=== PATIENT | male | born 1945 | race Caucasian/White ===

== ENCOUNTER 2016-10-08 13:32 | Emergency (ER) | payer MEDICARE ==
[~2016-10-08] VITALS: Ht 170.2 cm; Wt 74.0 kg
[2016-10-08 13:41] VITALS: BP 139/65; PULSE 76; RESP 18; O2SAT 97
--- NOTE | 2016-10-08 13:47 | PD ---
Physical Exam Time Seen by Provider: 13:45 Narrative 71yo M sent by [facility] for "severe blood loss." +blood in stool x 2 weeks and resolved today. Patient seen in triage. VS reviewed. Awaiting bed placement. Data Data Last Documented VS Vital Signs Date Time Temp Pulse Resp B/P Pulse Ox O2 Delivery O2 Flow Rate FiO2 10/08/16 13:41 76 18 139/65 97 MDM Supervised Visit with BRISA: Jyoti Collins Oct 08, 2016 13:47
--- NOTE | 2016-10-08 15:05 | PD ---
HPI Chief Complaint: Abnormal Results Time Seen by Provider: 17:56 Travel History International Travel<30 days: No Contact w/Intl Traveler<30days: No Traveled to known affect area: No History of Present Illness HPI 71- year old male presents to the ED complaining of blood in his stools for the past month. The patient describes his stools have been dark black for one month , however, today went back to brown. He reports weight loss of 30 pounds, over the past three months. He also states he has a decreased appetite. The patient reports his primary care called him and referred him to the ED has he had a low hemoglobin. He reports occasional constipation for the past three months, but denies any nausea, vomiting, or diarrhea. He reports a medical history of HTN, HLD, Arthritis, and Gout. He does tell me he has a chronic history of anemia for about 30 years. He denies any issues with this. He's had a colonoscopy about 10 years ago. He has no allergies to medication. He states that he did started taking lactulose which he believes is because of his dark stools. He has no allergies to medication. She does take multiple medications. No blood thinners. [facility] Social History Alcohol Use: No Tobacco Use: No Substance Use: No Allergies-Medications (Allergen,Severity, Reaction): Coded Allergies: No Known Allergies (Unverified , 10/08/16) Reported Meds & Prescriptions Reported Meds & Active Scripts Active Protonix (Pantoprazole Sodium) 40 Mg Tab 40 Mg PO DAILY Review of Systems General / Constitutional: Positive: Weight Loss, No: Fever, Chills, Weight Gain, Other Eyes: Positive: Blurred Vision, No: Diploplia, Photophobia, Drainage, Redness , Foreign Body Sensation, Pain, Tearing, Blind Spots, Visual changes, Blindness , Other HENT: No: Headaches, Vertigo, Lightheadedness, Sore Throat, Rhinitis, Rhinorrhea, Congestion, Nosebleed, Neck Stiffness, Neck Pain, Masses, Gingival Bleeding, Dental Difficulties, Ear Discharge, Earache, Other Cardiovascular: No: Chest Pain or Discomfort, Palpitations, Irregular Rhythm, Tachycardia, Diaphoresis, Syncope, Dyspnea on exertion, Varicosities, Edema, Cyanosis, Varicosities, Phlebitis, Claudication, Other Respiratory: No: Cough, Shortness of Breath, Wheezing, Sneezing, Orthopnea, Hemoptysis, Stridor, Night Sweats, Pleuritic Pain, Other Gastrointestinal: Positive: Hematochezia, Constipation, No: Nausea, Vomiting, Diarrhea, Abdominal Pain, Hematemesis, Changes in Bowel Habits, Indigestion, Dysphagia, Loss of Appetite, Other Genitourinary: No: Urgency, Frequency, Dysuria, Nocturia, Hematuria, Decreased Urinary Output, Oliguria, Hesitancy, Dribbling, Incontinence, Pelvic Pain, Flank Pain, Dyspareunia, Discharge, Dysmenorrhea, Menorrhagia, Metorrhagia, Vaginal Bleeding, Other Musculoskeletal: No: Myalgias, Arthralgias, Limited ROM, Weakness, Cramping, Edema, Pain, Atrophy, Other Skin: No Rash, No Itching, No Dryness, No Lumps, No Hives, No Change in Pigmentation, No Change in nails, No Alopecia, No Lesions, No Breast Lumps, No Breast Tenderness, No Breast Swelling, No Other Neurologic: No: Weakness, Dizziness, Syncope, Focal Abnormalities, Coordination Problem, Tremor, Ataxia, Headache, Change in Mentation, Slurred Speech, Paresthesia, Incontinence, Seizures, Sensory Disturbance, Other Psychiatric: No: Anxiety, Depression, Suicidal Ideations, Disorder of Thought, Mood Disorder, Substance Abuse, Homicidal Ideation, Other Endocrine: No: Heat Intolerance, Cold Intolerance, Polyuria, Polydipsia, Other Hematologic/Lymphatic: No: Easy Bruising, Lymph Node Enlargement, Other Physical Exam Narrative GENERAL: SKIN: Warm and dry. HEAD: Atraumatic. Normocephalic. EYES: Pupils equal and round. No scleral icterus. No injection or drainage. ENT: No nasal bleeding or discharge. Mucous membranes pink and moist. Tongue is midline, no uvula deviation. NECK: Trachea midline. No JVD. CARDIOVASCULAR: Regular rate and rhythm. No murmurs, S3, S4. RESPIRATORY: No accessory muscle use. Clear to auscultation. Breath sounds equal bilaterally. GASTROINTESTINAL: Abdomen soft, non-tender, nondistended. Hepatic and splenic margins not palpable. MUSCULOSKELETAL: Extremities without clubbing, cyanosis, or edema. No obvious deformities. Full range of motion of the upper and lower extremities bilaterally. 2+ pulses bilaterally. NEUROLOGICAL: Awake and alert. No obvious cranial nerve deficits. Motor grossly within normal limits. Five out of 5 muscle strength in the arms and legs. Normal speech. PSYCHIATRIC: Appropriate mood and affect; insight and judgment normal. Data Data Last Documented VS Vital Signs Date Time Temp Pulse Resp B/P Pulse Ox O2 Delivery O2 Flow Rate FiO2 10/08/16 15:30 64 26 166/73 100 Room Air Orders Complete Blood Count With Diff (10/08/16 14:23) Basic Metabolic Panel (Bmp) (10/08/16 14:23) Prothrombin Time / Inr (Pt) (10/08/16 14:23) Type And Screen (10/08/16 14:23) Ct Abd/Pel W Iv Contrast(Rout) (10/08/16 15:15) Hepatic Functional Panel (10/08/16 15:19) Iohexol 350 Inj (Omnipaque 350 Inj) (10/08/16 16:47) Pantoprazole Inj (Protonix Inj) (10/08/16 17:15) Labs Laboratory Tests Test 10/08/16 14:00 White Blood Count 9.8 TH/MM3 Red Blood Count 3.64 MIL/MM3 Hemoglobin 8.0 GM/DL Hematocrit 24.9 % Mean Corpuscular Volume 68.4 FL Mean Corpuscular Hemoglobin 22.0 PG Mean Corpuscular Hemoglobin 32.1 % Concent Red Cell Distribution Width 15.5 % Platelet Count 660 TH/MM3 Mean Platelet Volume 7.5 FL Neutrophils (%) (Auto) 82.1 % Lymphocytes (%) (Auto) 11.2 % Monocytes (%) (Auto) 5.0 % Eosinophils (%) (Auto) 1.2 % Basophils (%) (Auto) 0.5 % Neutrophils # (Auto) 8.0 TH/MM3 Lymphocytes # (Auto) 1.1 TH/MM3 Monocytes # (Auto) 0.5 TH/MM3 Eosinophils # (Auto) 0.1 TH/MM3 Basophils # (Auto) 0.0 TH/MM3 CBC Comment DIFF FINAL Differential Comment Prothrombin Time 10.7 SEC Prothromb Time International 1.0 RATIO Ratio Sodium Level 140 MEQ/L Potassium Level 4.4 MEQ/L Chloride Level 105 MEQ/L Carbon Dioxide Level 28.2 MEQ/L Anion Gap 7 MEQ/L Blood Urea Nitrogen 11 MG/DL Creatinine 1.10 MG/DL Estimat Glomerular Filtration 66 ML/MIN Rate Random Glucose 109 MG/DL Calcium Level 9.4 MG/DL Blood Type B NEGATIVE Antibody Screen NEGATIVE Blood Bank Comment MDM Medical Decision Making Medical Screen Exam Complete: Yes Emergency Medical Condition: Yes Medical Record Reviewed: Yes Interpretation(s) CBC & BMP Diagram 10/08/16 14:00 Last Impressions Abdomen/Pelvis CT 10/08/16 1515 Signed Impressions: Service Date/Time: Saturday, October 08, 2016 16:23 - CONCLUSION: 1. No acute finding is identified within the abdomen or pelvis to explain the clinical symptoms. 2. Nonacute findings include sigmoid diverticulosis, severe atherosclerotic disease, and left renal cystic lesion measuring up to 5.9 cm. Crescencio Fallon MD Differential Diagnosis GI bleed versus abdominal pain versus anorexia versus dark stools versus constipation versus normal exam Narrative Course 71-year-old male that presents to the ED for evaluation of dark stools and low hemoglobin. Patient had blood work done by his doctor who told her to come here to get evaluated. Patient states that he starts to have improved since yesterday. Per patient he no longer has any dark stools. Per patient she's been told that he is anemic. Labs and imaging were done by triage and did not show any sign of acute disease other than hemoglobin of 8. Hematocrit was negative here. Case discussed in my attending Dr. Turner who evaluated the patient with me and recommends admission. She spoke with [facility] hospitalist who recommends that patient can follow-up outpatient. Patient was told this and agrees with this plan. Patient will be discharged with instructions to follow with GI doctor tomorrow. See ED for worsening symptoms. Follow with PCP. See ED worsening symptoms. [facility] Point of Care Internal Pos. & Neg. Controls: Passed Fecal Specimen Occult Blood: Negative Diagnosis Primary Impression: Dark stools Referrals: Jose Miguel Trujillo MD Patient Instructions: General Instructions Additional Instructions: Take med as prescribed. Follow up with GI. See ED if worst. Med/Other Pt SpecificInfo: Prescription(s) given Scripts Pantoprazole (Protonix)40 Mg Tab40 Mg PO DAILY #30 TAB Ref 0 Prov:Sarina Turner MD 10/08/16 Disposition: 01 DISCHARGE HOME Condition: Stable Adama Franklin Oct 08, 2016 15:05
[2016-10-08 15:09] LABS: BASOPHIL % 0.5 % (0.0-2.0); EOSINOPHIL # 0.1 TH/MM3 (0-0.4); EOSINOPHIL % 1.2 % (0.0-4.0); HEMATOCRIT 24.9 % (39.0-51.0); HEMO FLAGS DIFF FINAL; LYMPH % 11.2 % (9.0-44.0); LYMPHOCYTE # 1.1 TH/MM3 (1.0-4.8); MEAN CELL VOLUME 68.4 FL (80.0-100.0); MEAN CORPUSCULAR HGB CONC 32.1 % (32.0-36.0); NEUT % 82.1 % (16.0-70.0); PLATELET COUNT 660 TH/MM3 (150-450); RED BLOOD COUNT 3.64 MIL/MM3 (4.50-5.90); RED CELL DISTRIBUTION WIDTH 15.5 % (11.6-17.2); WHITE BLOOD COUNT 9.8 TH/MM3 (4.0-11.0)
[2016-10-08 15:22] LABS: BICARBONATE 28.2 MEQ/L (21.0-32.0); POTASSIUM 4.4 MEQ/L (3.5-5.1)
[2016-10-08 15:28] LABS: PROTHROMBIN TIME - PATIENT 10.7 SEC (9.8-11.6)
[2016-10-08 15:30] VITALS: BP 166/73; PULSE 64; RESP 26; O2SAT 100
[2016-10-08] MEDS ORDERED: IOHEXOL 350 MG/ML 10 ML VIAL (for RAD DIAG) IV ONE (16:47)
--- NOTE | 2016-10-08 16:57 | RADRPT ---
EXAM DATE/TIME: 10/08/2016 16:23 [facility] COMPARISON: No previous studies available for comparison. INDICATIONS : Blood loss,black stools. IV CONTRAST: 94 cc Omnipaque 350 (iohexol) IV ORAL CONTRAST: No oral contrast ingested. RADIATION DOSE: 5.48 CTDIvol (mGy) MEDICAL HISTORY : Arthritis. Hypertension. SURGICAL HISTORY : None. ENCOUNTER: Initial ACUITY: 3 weeks PAIN SCALE: 0/10 LOCATION: Abdomen TECHNIQUE: Volumetric scanning of the abdomen and pelvis was performed. Using automated exposure control and ad justment of the mA and/or kV according to patient size, radiation dose was kept as low as reasonably achievable to obtain optimal diagnostic quality images. DICOM format image data is available electro nically for review and comparison. FINDINGS: LOWER LUNGS: The visualized lower lungs are clear. There is coronary artery calcification. LIVER: Homogeneous density without lesion. There is no dilation of the biliary tree. No calcified gallston es. SPLEEN: Normal size without lesion. PANCREAS: Within normal limits. KIDNEYS: Normal in size and shape. There is no mass, stone or hydronephrosis. There is a 10 mm cyst at the lo wer pole left kidney. In the left mid kidney there is a cystic lesion extending into the renal sinus measuring up to 5.9 x 2.8 cm. Density measurements are consistent with a cyst. ADRENAL GLANDS: Within normal limits. VASCULAR: There is no aortic aneurysm. There is severe atherosclerotic disease. BOWEL/MESENTERY: The stomach, small bowel, and colon demonstrate no acute abnormality. There is no free intraperitone al air or fluid. There is sigmoid diverticulosis. ABDOMINAL WALL: Within normal limits. RETROPERITONEUM: There is no lymphadenopathy. BLADDER: No wall thickening or mass. REPRODUCTIVE: No acute abnormality is identified. INGUINAL: There is no lymphadenopathy or hernia. MUSCULOSKELETAL: There is lumbar scoliosis with degenerative change. CONCLUSION: 1. No acute finding is identified within the abdomen or pelvis to explain the clinical symptoms. 2. Nonacute findings include sigmoid diverticulosis, severe atherosclerotic disease, and left renal c ystic lesion measuring up to 5.9 cm. Crescencio Fallon MD on October 08, 2016 at 16:51 Board Certified Radiologist. This report was verified electronically.
[2016-10-08] MEDS ORDERED: PANTOPRAZOLE SODIUM 40 MG VIAL IV PUSH ONE (17:15)
--- NOTE | 2016-10-08 17:34 | PD ---
Data Data Last Documented VS Vital Signs Date Time Temp Pulse Resp B/P Pulse Ox O2 Delivery O2 Flow Rate FiO2 10/08/16 15:30 64 26 166/73 100 Room Air Orders Complete Blood Count With Diff (10/08/16 14:23) Basic Metabolic Panel (Bmp) (10/08/16 14:23) Prothrombin Time / Inr (Pt) (10/08/16 14:23) Type And Screen (10/08/16 14:23) Ct Abd/Pel W Iv Contrast(Rout) (10/08/16 15:15) Hepatic Functional Panel (10/08/16 15:19) Iohexol 350 Inj (Omnipaque 350 Inj) (10/08/16 16:47) Pantoprazole Inj (Protonix Inj) (10/08/16 17:15) Labs Laboratory Tests Test 10/08/16 14:00 White Blood Count 9.8 TH/MM3 Red Blood Count 3.64 MIL/MM3 Hemoglobin 8.0 GM/DL Hematocrit 24.9 % Mean Corpuscular Volume 68.4 FL Mean Corpuscular Hemoglobin 22.0 PG Mean Corpuscular Hemoglobin 32.1 % Concent Red Cell Distribution Width 15.5 % Platelet Count 660 TH/MM3 Mean Platelet Volume 7.5 FL Neutrophils (%) (Auto) 82.1 % Lymphocytes (%) (Auto) 11.2 % Monocytes (%) (Auto) 5.0 % Eosinophils (%) (Auto) 1.2 % Basophils (%) (Auto) 0.5 % Neutrophils # (Auto) 8.0 TH/MM3 Lymphocytes # (Auto) 1.1 TH/MM3 Monocytes # (Auto) 0.5 TH/MM3 Eosinophils # (Auto) 0.1 TH/MM3 Basophils # (Auto) 0.0 TH/MM3 CBC Comment DIFF FINAL Differential Comment Prothrombin Time 10.7 SEC Prothromb Time International 1.0 RATIO Ratio Sodium Level 140 MEQ/L Potassium Level 4.4 MEQ/L Chloride Level 105 MEQ/L Carbon Dioxide Level 28.2 MEQ/L Anion Gap 7 MEQ/L Blood Urea Nitrogen 11 MG/DL Creatinine 1.10 MG/DL Estimat Glomerular Filtration 66 ML/MIN Rate Random Glucose 109 MG/DL Calcium Level 9.4 MG/DL Blood Type B NEGATIVE Antibody Screen NEGATIVE Blood Bank Comment MDM Supervised Visit with BRISA: Yes Narrative Course The history, exam, and medical decision-making in the associated midlevel provider note were completed with my assistance. I reviewed and agree with the findings presented. I attest that I had a [id number] encounter with the patient on the same day, and personally performed and documented my assessment and findings in the medical record. *My assessment and Findings: This is a 71-year-old male who presents to the emergency department with dark stools for one month. Today he says his stools a been normal in color. The PA performed a Hemoccult which was negative. His hemoglobin is 8 and he has no history of coronary artery disease. Patient may have a GI malignancy given the amount of weight that he's lost. Given he appears stable in the emergency department he doesn't meet admission criteria. I urged him to follow-up with a game trapper as soon as possible and he was told to call [facility] tomorrow morning to make an appointment. If he feels worse he was told to come back. Sarina Turner MD Oct 08, 2016 17:34
[2016-10-08] MEDS ORDERED: PROT40TA PO (17:49)
[2016-10-08 22:37] LABS: INDIRECT BILIRUBIN 0.2 MG/DL (0.0-0.8); TOTAL BILIRUBIN ADULT 0.3 MG/DL (0.2-1.0)
== END 2016-10-08 18:05 | disposition home or self-care (01) ==
LOC: NEPE 13:32
DX: K92.1 Melena (principal); D64.9 Anemia, unspecified; K57.30 Diverticulosis of large intestine without perforation or abscess without bleeding
CPT/HCPCS: 74177; 80048; 80076; 85025; 85610; 86850; 86900; 86901; 99284; Q9967

== ENCOUNTER 2017-04-21 15:34 | Inpatient (IN) | payer MEDICARE ==
[~2017-04-21] VITALS: Ht 170.2 cm; Wt 76.5 kg
[~2017-04-21 15:34] MED LIST: PROT40TA PO
[2017-04-21 15:40] VITALS: BP 85/49; PULSE 92; RESP 16; TEMP 98.2; O2SAT 99
[2017-04-21] MEDS ORDERED: ALLO300T2 PO (15:51)
[2017-04-21] MEDS ORDERED: METH2.5T PO (15:51)
[2017-04-21] MEDS ORDERED: PRAV40TA2 PO (15:51)
[2017-04-21] MEDS ORDERED: LISI30TA4 PO (15:51)
[2017-04-21] MEDS ORDERED: FERR325T18 PO (15:51)
[2017-04-21] MEDS ORDERED: PRED5TAB PO (15:51)
[2017-04-21] MEDS ORDERED: METO25TA3 PO (15:51)
[2017-04-21] MEDS ORDERED: SODIUM CHLOR 0.9% 1000 ML INJ 1,000 ML IV SCH (15:53)
[2017-04-21] MEDS ORDERED: SODIUM CHLORIDE 0.9% FLUSH 10 ML FLUSH IVF PRN (16:00)
[2017-04-21] MEDS ORDERED: ONDANSETRON HCL 4 MG/2 ML VIAL IVP ONE (16:00)
[2017-04-21] MEDS ORDERED: FAMOTIDINE 20 MG/2 ML VIAL IV PUSH ONE (16:00)
[2017-04-21] MEDS ORDERED: PANTOPRAZOLE SODIUM 40 MG VIAL IVP ONE (16:00)
[2017-04-21 16:19] VITALS: O2SAT 97
[2017-04-21 16:38] LABS: AUTOMATED NEUTROPHIL # 14.2 TH/MM3 (1.8-7.7); BASOPHIL # 0.1 TH/MM3 (0-0.2); BASOPHIL % 0.4 % (0.0-2.0); EOSINOPHIL # 0.1 TH/MM3 (0-0.4); EOSINOPHIL % 0.6 % (0.0-4.0); HEMATOCRIT 35.3 % (39.0-51.0); HEMOGLOBIN 11.2 GM/DL (13.0-17.0); LYMPH % 10.7 % (9.0-44.0); LYMPHOCYTE # 1.8 TH/MM3 (1.0-4.8); MEAN CELL VOLUME 67.7 FL (80.0-100.0); MEAN CORPUSCULAR HEMOGLOBIN 21.6 PG (27.0-34.0); MEAN CORPUSCULAR HGB CONC 31.8 % (32.0-36.0); MEAN PLATELET VOLUME 8.2 FL (7.0-11.0); MONO % 1.9 % (0.0-8.0); MONOCYTE # 0.3 TH/MM3 (0-0.9); NEUT % 86.4 % (16.0-70.0); PLATELET COUNT 560 TH/MM3 (150-450); RED BLOOD COUNT 5.21 MIL/MM3 (4.50-5.90); RED CELL DISTRIBUTION WIDTH 18.8 % (11.6-17.2); WHITE BLOOD COUNT 16.5 TH/MM3 (4.0-11.0)
[2017-04-21 16:59] LABS: ALBUMIN 3.6 GM/DL (3.4-5.0); ALT (GPT) 20 U/L (12-78); AST (GOT) 15 U/L (15-37); BICARBONATE 16.3 MEQ/L (21.0-32.0); BLOOD UREA NITROGEN 54 MG/DL (7-18); CHLORIDE 107 MEQ/L (98-107); CREATININE 4.67 MG/DL (0.60-1.30); GLOMERULAR FILTRATION RATE 12 ML/MIN (>89); GLUCOSE,RANDOM 91 MG/DL (74-106); SODIUM (NA) 137 MEQ/L (136-145)
[2017-04-21 17:02] LABS: ALKALINE PHOSPHATASE 69 U/L (45-117); TOTAL BILIRUBIN ADULT 0.3 MG/DL (0.2-1.0); TOTAL PROTEIN 7.4 GM/DL (6.4-8.2)
--- NOTE | 2017-04-21 17:20 | PD ---
HPI Chief Complaint: GI Complaint Time Seen by Provider: 15:44 Travel History International Travel<30 days: No Contact w/Intl Traveler<30days: No Traveled to known affect area: No History of Present Illness HPI 72 YO M presents to the ED for evaluation of "a few weeks" history of multiple episodes of watery diarrhea daily. States stool is yellow. He endorses feeling weak. He denies headache, dizziness, chest pain, palpitations, shortness of breath, abdominal pain, nausea, vomiting. He states "I eat and I shit and I eat and I shit." Patient takes methotrexate for arthritis. He denies any recent antibiotic use. He denies any recent medical send changes. He endorses fairly recent history of gastroscopy. He states he was in the process of setting up a colonoscopy when this began. [facility] Past Medical History Arthritis: Yes High Cholesterol: Yes Chest Pain: Yes Diminished Hearing: Yes Gout: Yes Hypertension: Yes Musculoskeletal: Yes (Rheumatoid Arthritis) Influenza Vaccination: Yes Past Surgical History Oral Surgery: Yes (Benign cyst removed from tongue) Tonsillectomy: Yes Social History Alcohol Use: Yes (DAILY) Tobacco Use: No Substance Use: No Allergies-Medications (Allergen,Severity, Reaction): Coded Allergies: No Known Allergies (Unverified Allergy, Unknown, 04/21/17) Reported Meds & Prescriptions Reported Meds & Active Scripts Active Reported Prednisone 5 Mg Tab 5 Mg PO DAILY Lisinopril 30 Mg Tab 30 Mg PO DAILY Metoprolol Tartrate 25 Mg Tab 25 Mg PO BID Allopurinol 300 Mg Tab 300 Mg PO DAILY Ferrous Sulfate 325 Mg (65 Mg Iron) Tablet 325 Mg PO DAILY Methotrexate 2.5 Mg Tab 7.5 Mg PO Q7D Pravastatin 40 Mg Tab 40 Mg PO DAILY Review of Systems Except as stated in HPI: all other systems reviewed are Neg Physical Exam Narrative GENERAL: Well-nourished, well-developed irritable white male in no acute distress. SKIN: Focused skin assessment warm/dry. HEAD: Normocephalic. EYES: No scleral icterus. No injection or drainage. NECK: Supple, trachea midline. No JVD or lymphadenopathy. CARDIOVASCULAR: Regular rate and rhythm without murmurs, gallops, or rubs. RESPIRATORY: Breath sounds clear and equal bilaterally. No accessory muscle use. GASTROINTESTINAL: Abdomen soft, non-tender, nondistended. Active bowel sounds. RECTAL EXAM: No masses or tenderness, stool is watery, yellow. MUSCULOSKELETAL: No cyanosis, or edema. BACK: Nontender without obvious deformity. No CVA tenderness. Data Data Last Documented VS Vital Signs Date Time Temp Pulse Resp B/P (MAP) Pulse Ox O2 Delivery O2 Flow Rate FiO2 04/21/17 18:09 53 17 117/56 (76) 98 Room Air 04/21/17 17:30 97.9 Orders Orders Complete Blood Count With Diff (04/21/17 15:53) Comprehensive Metabolic Panel (04/21/17 15:53) Prothrombin Time / Inr (Pt) (04/21/17 15:53) Act Partial Throm Time (Ptt) (04/21/17 15:53) Alcohol (Ethanol) (04/21/17 15:53) Urinalysis - C+S If Indicated (04/21/17 15:53) Type And Screen (04/21/17 15:53) Ecg Monitoring (04/21/17 15:53) Iv Access Insert/Monitor (04/21/17 15:53) Oximetry (04/21/17 15:53) Ondansetron Inj (Zofran Inj) (04/21/17 16:00) Pantoprazole Inj (Protonix Inj) (04/21/17 16:00) Sodium Chlor 0.9% 1000 Ml Inj (Ns 1000 M (04/21/17 15:53) Sodium Chloride 0.9% Flush (Ns Flush) (04/21/17 16:00) Famotidine Inj (Pepcid Inj) (04/21/17 16:00) Enteric Path (Stool) (04/21/17 16:48) Stool Ova And Parasite Screen (04/21/17 16:48) C Diff Toxin Pcr (04/21/17 16:48) Lactic Acid (04/21/17 17:29) Metronidazole 500 Mg Inj (Flagyl 500 Mg (04/21/17 17:30) Sodium Chlor 0.9% 1000 Ml Inj (Ns 1000 M (04/21/17 17:45) Admit Order (Ed Use Only) (04/21/17 18:58) Labs Laboratory Tests Test 04/21/17 16:04 04/21/17 18:11 White Blood Count 16.5 TH/MM3 Red Blood Count 5.21 MIL/MM3 Hemoglobin 11.2 GM/DL Hematocrit 35.3 % Mean Corpuscular Volume 67.7 FL Mean Corpuscular Hemoglobin 21.6 PG Mean Corpuscular Hemoglobin Concent 31.8 % Red Cell Distribution Width 18.8 % Platelet Count 560 TH/MM3 Mean Platelet Volume 8.2 FL Neutrophils (%) (Auto) 86.4 % Lymphocytes (%) (Auto) 10.7 % Monocytes (%) (Auto) 1.9 % Eosinophils (%) (Auto) 0.6 % Basophils (%) (Auto) 0.4 % Neutrophils # (Auto) 14.2 TH/MM3 Lymphocytes # (Auto) 1.8 TH/MM3 Monocytes # (Auto) 0.3 TH/MM3 Eosinophils # (Auto) 0.1 TH/MM3 Basophils # (Auto) 0.1 TH/MM3 CBC Comment DIFF FINAL Differential Comment Prothrombin Time 10.0 SEC Prothromb Time International Ratio 1.0 RATIO Activated Partial Thromboplast Time 29.2 SEC Blood Urea Nitrogen 54 MG/DL Creatinine 4.67 MG/DL Random Glucose 91 MG/DL Total Protein 7.4 GM/DL Albumin 3.6 GM/DL Calcium Level 9.0 MG/DL Alkaline Phosphatase 69 U/L Aspartate Amino Transf (AST/SGOT) 15 U/L Alanine Aminotransferase (ALT/SGPT) 20 U/L Total Bilirubin 0.3 MG/DL Sodium Level 137 MEQ/L Potassium Level 3.6 MEQ/L Chloride Level 107 MEQ/L Carbon Dioxide Level 16.3 MEQ/L Anion Gap 14 MEQ/L Estimat Glomerular Filtration Rate 12 ML/MIN Ethyl Alcohol Level LESS THAN 3 MG/DL Lactic Acid Level 1.2 mmol/L [facility] Medical Decision Making Medical Screen Exam Complete: Yes Emergency Medical Condition: Yes Differential Diagnosis Gastroenteritis versus infectious diarrhea versus metabolic derangement versus dehydration versus other Narrative Course 72 YO M presents to the ED for evaluation of "a few weeks" history of multiple episodes of watery diarrhea daily. States stool is yellow. He endorses feeling weak. He states "I eat and I shit and I eat and I shit." Patient takes methotrexate for arthritis. He denies any recent antibiotic use. He denies any recent medication changes. He endorses fairly recent history of gastroscopy. Patient afebrile, pulse 92, BP 85/49 on presentation. Physical exam reveals a tearful white male in no acute distress. Abdominal exam is unremarkable. Guaiac negative on rectal exam. Stool is yellow, thin, seedy. Stool studies were ordered. Commode was brought to bedside. Mr. IV Zofran, Protonix, Pepcid and 2 L normal saline. 04/21/17 16:04 Total Protein 7.4, Albumin 3.6, Calcium Level 9.0, Alkaline Phosphatase 69, Aspartate Amino Transf (AST/SGOT) 15, Alanine Aminotransferase (ALT/SGPT) 20, Total Bilirubin 0.3 INR 1.0. INR 1.0. Alcohol less than 3. Lactic:1.2 UA: No culture indicated. Patient was administered 500 mg Flagyl IV. Given his acute kidney injury and suspicion of infectious diarrhea plan to admit the patient. He is agreeable. He spoke with Dr. Castro who agrees to accept the patient to the medicine service. Please see medicine notes for disposition. Sepsis Criteria SIRS Criteria (2 or more): Heart rate over 90, WBC > 53257, < 4000 or > 10% bands Sepsis Criteria (SIRS+source): Infect source susp/known Severe Sepsis (+one): Hypotension Faby Lee Apr 21, 2017 17:20
[2017-04-21 17:30] VITALS: BP 113/56; PULSE 64; RESP 16; TEMP 97.9; O2SAT 100
[2017-04-21] MEDS ORDERED: metroNIDAZOLE 500 MG INJ 100 ML IV ONE (17:30)
[2017-04-21] MEDS ORDERED: SODIUM CHLOR 0.9% 1000 ML INJ 1,000 ML IV ONE (17:45)
[2017-04-21 18:09] VITALS: BP 117/56; PULSE 53; RESP 17; O2SAT 98
--- NOTE | 2017-04-21 18:27 | PD ---
Data Data Last Documented VS Vital Signs Date Time Temp Pulse Resp B/P (MAP) Pulse Ox O2 Delivery O2 Flow Rate FiO2 04/21/17 18:09 53 17 117/56 (76) 98 Room Air 04/21/17 17:30 97.9 Orders Orders Complete Blood Count With Diff (04/21/17 15:53) Comprehensive Metabolic Panel (04/21/17 15:53) Prothrombin Time / Inr (Pt) (04/21/17 15:53) Act Partial Throm Time (Ptt) (04/21/17 15:53) Alcohol (Ethanol) (04/21/17 15:53) Urinalysis - C+S If Indicated (04/21/17 15:53) Type And Screen (04/21/17 15:53) Ecg Monitoring (04/21/17 15:53) Iv Access Insert/Monitor (04/21/17 15:53) Oximetry (04/21/17 15:53) Ondansetron Inj (Zofran Inj) (04/21/17 16:00) Pantoprazole Inj (Protonix Inj) (04/21/17 16:00) Sodium Chlor 0.9% 1000 Ml Inj (Ns 1000 M (04/21/17 15:53) Sodium Chloride 0.9% Flush (Ns Flush) (04/21/17 16:00) Famotidine Inj (Pepcid Inj) (04/21/17 16:00) Enteric Path (Stool) (04/21/17 16:48) Stool Ova And Parasite Screen (04/21/17 16:48) C Diff Toxin Pcr (04/21/17 16:48) Lactic Acid (04/21/17 17:29) Metronidazole 500 Mg Inj (Flagyl 500 Mg (04/21/17 17:30) Sodium Chlor 0.9% 1000 Ml Inj (Ns 1000 M (04/21/17 17:45) Admit Order (Ed Use Only) (04/21/17 18:58) Labs Laboratory Tests Test 04/21/17 16:04 04/21/17 18:11 White Blood Count 16.5 TH/MM3 Red Blood Count 5.21 MIL/MM3 Hemoglobin 11.2 GM/DL Hematocrit 35.3 % Mean Corpuscular Volume 67.7 FL Mean Corpuscular Hemoglobin 21.6 PG Mean Corpuscular Hemoglobin Concent 31.8 % Red Cell Distribution Width 18.8 % Platelet Count 560 TH/MM3 Mean Platelet Volume 8.2 FL Neutrophils (%) (Auto) 86.4 % Lymphocytes (%) (Auto) 10.7 % Monocytes (%) (Auto) 1.9 % Eosinophils (%) (Auto) 0.6 % Basophils (%) (Auto) 0.4 % Neutrophils # (Auto) 14.2 TH/MM3 Lymphocytes # (Auto) 1.8 TH/MM3 Monocytes # (Auto) 0.3 TH/MM3 Eosinophils # (Auto) 0.1 TH/MM3 Basophils # (Auto) 0.1 TH/MM3 CBC Comment DIFF FINAL Differential Comment Prothrombin Time 10.0 SEC Prothromb Time International Ratio 1.0 RATIO Activated Partial Thromboplast Time 29.2 SEC Blood Urea Nitrogen 54 MG/DL Creatinine 4.67 MG/DL Random Glucose 91 MG/DL Total Protein 7.4 GM/DL Albumin 3.6 GM/DL Calcium Level 9.0 MG/DL Alkaline Phosphatase 69 U/L Aspartate Amino Transf (AST/SGOT) 15 U/L Alanine Aminotransferase (ALT/SGPT) 20 U/L Total Bilirubin 0.3 MG/DL Sodium Level 137 MEQ/L Potassium Level 3.6 MEQ/L Chloride Level 107 MEQ/L Carbon Dioxide Level 16.3 MEQ/L Anion Gap 14 MEQ/L Estimat Glomerular Filtration Rate 12 ML/MIN Ethyl Alcohol Level LESS THAN 3 MG/DL Lactic Acid Level 1.2 mmol/L MDM Supervised Visit with BRISA: Yes Narrative Course I, Dr. Hdez, have reviewed the advance practice practitioner's documentation and am in agreement, met with the patient face to face, made the diagnosis, and the medical decision making was done by me. *My assessment and Findings: Patient seen and examined by me in addition to Kai Lee, patient appears well nontoxic is quite active in the room ambulates without assistance. Mildly tachycardic on arrival with heart rate of 92 and mildly hypotensive he did respond to fluid quite nicely, lactic acid negative, he does have 2 sirs criteria and is therefore septic, presumed infectious diarrhea. Does not meet criteria for aggressive fluid resuscitation. Patient has not had any recent antibiotics but given the stool specimen that was described to me certainly C. difficile is in consideration. Empiric antibiotic therapy was started. I discussed the patient with Dr. Koehler for admission peer Diagnosis Primary Impression: LYNDSEY (acute kidney injury) Additional Impressions: Colitis Sepsis Admitting Information Admitting Physician Requests: Admit Condition: Stable Lai Hdez MD Apr 21, 2017 18:27
[2017-04-21] MEDS ORDERED: ONDANSETRON HCL 4 MG/2 ML VIAL IVP PRN (19:00)
[2017-04-21] MEDS ORDERED: ACETAMINOPHEN/HYDROcodone 325 MG/5 MG TAB PO PRN (19:00)
[2017-04-21] MEDS ORDERED: MAGNESIUM HYDROXIDE SUSP 30 ML CUP PO PRN (19:00)
[2017-04-21] MEDS ORDERED: SENNOSIDES 8.6 MG TAB PO PRN (19:00)
[2017-04-21] MEDS ORDERED: BISACODYL 10 MG SUPP RECTAL PRN (19:00)
[2017-04-21] MEDS ORDERED: SODIUM CHLORIDE 0.9% FLUSH 10 ML FLUSH IV FLUSH PRN (19:00)
[2017-04-21] MEDS ORDERED: ACETAMINOPHEN 325 MG TAB PO PRN (19:00)
[2017-04-21] MEDS ORDERED: MORPHINE SULFATE 2 MG/ML INJ IV PUSH PRN (19:00)
[2017-04-21] MEDS ORDERED: LACTULOSE SYRUP 20 GM/30 ML CUP PO PRN (19:00)
--- NOTE | 2017-04-21 19:05 | HHI.HP ---
[facility] Sourav Lama M.D. Admission Diagnosis acute kidney injury, r/o infectious diarrhea Diagnoses: (1) Sepsis Diagnosis: Principal (2) Colitis Diagnosis: Principal (3) LYNDSEY (acute kidney injury) Diagnosis: Principal Travel History International Travel<30 Days: No Contact w/Intl Traveler <30 Da: No Traveled to Known Affected Are: No History of Present Illness This is a 72-year-old male with a PMH of HTN, Hyperlipidemia, Gout and Rheumatoid Arthritis recent ER with complaints of diarrhea for few months. States symptoms have been constant, almost daily, now progressively worse. States unable to eat because he has diarrhea immediately after a meal. Denies abdominal pain, nausea, vomiting, fever or chills. No recent travel, no antibiotic use. On arrival, BP 85/49, HR 92, O2 sat 99% on RA, Afebrile. S/p IVF w/ repeat BP 113/56, HR 64. WBC 16.5. Hemoglobin 11.2. Creatinine 4.67, producing 1.10 and 10/08/16. Lactic Acid 1.2. INR 1.0. Alcohol negative. CT Abdomen/Pelvis with no acute findings in the abdomen or pelvis, nonacute sigmoid diverticulosis. S/p Flagyl in ER. Stool studies pending. Hemoccult negative. Review of Systems Except as stated in HPI: all other systems reviewed are Neg ROS: 14 point review of systems otherwise negative. Past Family Social History Past Medical History PMH: HTN, Hyperlipidemia, Gout and Rheumatoid Arthritis Past Surgical History PAST SURGICAL HISTORY: Tonsillectomy Allergies: Coded Allergies: No Known Allergies (Unverified Allergy, Unknown, 04/21/17) Family History PAST FAMILY HISTORY: Reviewed. No h/o DM or CAD Social History PAST SOCIAL HISTORY: Positive for alcohol. Negative for tobacco or drugs. Physical Exam Vital Signs Vital Signs Date Time Temp Pulse Resp B/P (MAP) Pulse Ox O2 Delivery O2 Flow Rate FiO2 04/21/17 18:09 53 17 117/56 (76) 98 Room Air 04/21/17 17:30 97.9 64 16 113/56 (75) 100 Room Air 04/21/17 16:19 97 Room Air 04/21/17 15:40 98.2 92 16 85/49 (61) 99 Physical Exam PE: GENERAL: Elderly white male in no acute distress. HEENT: PERRLA, EOMI. No scleral icterus or conjunctival pallor. No lid lag or facial droop. CARDIOVASCULAR: Regular rate and rhythm. No obvious murmurs to auscultation. No chest tenderness to palpation. RESPIRATORY: No obvious rhonchi or wheezing. Clear to auscultation. Breath sounds equal bilaterally. GASTROINTESTINAL: Abdomen soft, non-tender, nondistended. BS normal. MUSCULOSKELETAL: Extremities without clubbing, cyanosis, or edema. No obvious deformities. NEUROLOGICAL: Awake, alert and oriented x4. No focal neurologic deficits. Moving both upper and lower extremities spontaneously. Laboratory Laboratory Tests Test 04/21/17 16:04 04/21/17 18:11 White Blood Count 16.5 Red Blood Count 5.21 Hemoglobin 11.2 Hematocrit 35.3 Mean Corpuscular Volume 67.7 Mean Corpuscular Hemoglobin 21.6 Mean Corpuscular Hemoglobin Concent 31.8 Red Cell Distribution Width 18.8 Platelet Count 560 Mean Platelet Volume 8.2 Neutrophils (%) (Auto) 86.4 Lymphocytes (%) (Auto) 10.7 Monocytes (%) (Auto) 1.9 Eosinophils (%) (Auto) 0.6 Basophils (%) (Auto) 0.4 Neutrophils # (Auto) 14.2 Lymphocytes # (Auto) 1.8 Monocytes # (Auto) 0.3 Eosinophils # (Auto) 0.1 Basophils # (Auto) 0.1 CBC Comment DIFF FINAL Differential Comment Prothrombin Time 10.0 Prothromb Time International Ratio 1.0 Activated Partial Thromboplast Time 29.2 Blood Urea Nitrogen 54 Creatinine 4.67 Random Glucose 91 Total Protein 7.4 Albumin 3.6 Calcium Level 9.0 Alkaline Phosphatase 69 Aspartate Amino Transf (AST/SGOT) 15 Alanine Aminotransferase (ALT/SGPT) 20 Total Bilirubin 0.3 Sodium Level 137 Potassium Level 3.6 Chloride Level 107 Carbon Dioxide Level 16.3 Anion Gap 14 Estimat Glomerular Filtration Rate 12 Ethyl Alcohol Level LESS THAN 3 Lactic Acid Level 1.2 Result Diagram: 04/21/17 1604 04/21/17 1604 Caprini VTE Risk Assessment Caprini VTE Risk Assessment: No/Low Risk (score <= 1) Caprini Risk Assessment Model Point Value = 1 Point Value = 2 Point Value = 3 Point Value = 5 Age 41-60 Minor surgery BMI > 25 kg/m2 Swollen legs Varicose veins or History of unexplained or recurrent spontaneous Oral contraceptives or hormone replacement Sepsis (< 1 month) Serious lung disease, including pneumonia (< 1 month) Abnormal pulmonary function Acute myocardial infarction Congestive heart failure (< 1 month) History of inflammatory bowel disease Medical patient at bed rest Age 61-74 Arthroscopic surgery Major open surgery (> 45 min) Laparoscopic surgery (> 45 min) Malignancy Confined to bed (> 72 hours) Immobilizing plaster cast Central venous access Age >= 75 History of VTE Family history of VTE Factor V Leiden Prothrombin [id number] Lupus anticoagulant Anticardiolipin antibodies Elevated serum homocysteine Heparin-induced thrombocytopenia Other congenital or acquired thrombophilia Stroke (< 1 month) Elective arthroplasty Hip, pelvis, or leg fracture Acute spinal cord injury (< 1 month) Prophylaxis Regimen Total Risk Factor Score Risk Level Prophylaxis Regimen 0-1 Low Early ambulation 2 Moderate Order ONE of the following: *Sequential Compression Device (SCD) *Heparin 5000 units SQ BID 3-4 Higher Order ONE of the following medications: *Heparin 5000 units SQ TID *Enoxaparin/Lovenox 40 mg SQ daily (WT < 150 kg, CrCl > 30 mL/min) *Enoxaparin/Lovenox 30 mg SQ daily (WT < 150 kg, CrCl > 10-29 mL/min) *Enoxaparin/Lovenox 30 mg SQ BID (WT < 150 kg, CrCl > 30 mL/min) AND/OR *Sequential Compression Device (SCD) 5 or more Highest Order ONE of the following medications: *Heparin 5000 units SQ TID (Preferred with Epidurals) *Enoxaparin/Lovenox 40 mg SQ daily (WT < 150 kg, CrCl > 30 mL/min) *Enoxaparin/Lovenox 30 mg SQ daily (WT < 150 kg, CrCl > 10-29 mL/min) *Enoxaparin/Lovenox 30 mg SQ BID (WT < 150 kg, CrCl > 30 mL/min) AND *Sequential Compression Device (SCD) Assessment and Plan Problem List: (1) Sepsis ICD Code: A41.9 - Sepsis, unspecified organism (2) Colitis ICD Code: K52.9 - Noninfective gastroenteritis and colitis, unspecified (3) LYNDSEY (acute kidney injury) ICD Code: N17.9 - Acute kidney failure, unspecified Assessment and Plan A/P: 1. Sepsis: HR 92, WBC 16, Source-likely colitis. Follow up cultures, continue IV Abx, IVF for hydration. 2. Colitis: reports ongoing diarrhea x2-3 months, eval for infectious etiology. CT Abd/Pelvis w/ no acute findings, images reviewed by me. Hemoccult negative on exam. Check Stool studies, C Diff. GI Consult if needed for further evaluation/possible Colonoscopy. 3. LYNDSEY: Creatinine 4.67, producing 1.10 on 10/08/16. Check UA, check Renal US , check protein/creat ratio, Consult Nephrology for further evaluation. Avoid NSAIDs/nephrotoxic agents. Monitor I/O. 4. DVT Prophylaxis: SCD/Teds. 5. Social work for d/c planning as needed 6. Case discussed w/ ER physician at length, labs/records/imaging reviewed by me. Physician Certification 2 Midnight Certification Type: Admission for Inpatient Services Order for Inpatient Services The services are ordered in accordance with Medicare regulations or non- Medicare payer requirements, as applicable. In the case of services not specified as inpatient-only, they are appropriately provided as inpatient services in accordance with the 2-midnight benchmark. Estimated LOS (days): 2 days is the estimated time the patient will need to remain in the hospital, assuming treatment plan goals are met and no additional complications. Post-Hospital Plan: Not yet determined Patricia Castro MD Apr 21, 2017 19:05
[2017-04-21] MEDS: SODIUM CHLOR 0.9% 1000 ML INJ 1,000 ML IV SCH (19:49)
[2017-04-21 20:00] VITALS: BP 118/73; PULSE 80; RESP 18; TEMP 95.6; O2SAT 100
[2017-04-21] MEDS ORDERED: CIPROFLOXACIN 400 MG PREMIX 200 ML IV SCH (20:00)
[2017-04-21 20:07] LABS: BILIRUBIN, URINE NEG (NEG); BLOOD, URINE NEG (NEG); GLUCOSE,URINE NEG (NEG); HYALINE CAST, URINE 4 /lpf (RARE); KETONE, URINE NEG (NEG); MUCUS URINE FEW /lpf (OCC); NITRITE,URINE NEG (NEG); SQUAMOUS EPITHELIAL CELL URINE 1 /hpf (0-5); URINE COLOR YELLOW (YELLW/STRAW); URINE LEUKOCYTE ESTERASE NEG (NEG)
[2017-04-21] MEDS: SODIUM CHLORIDE 0.9% FLUSH 10 ML FLUSH IV FLUSH SCH (21:00)
[2017-04-21] MEDS: METOPROLOL TARTRATE 25 MG TAB PO SCH (21:35)
[2017-04-21] MEDS: DOCUSATE SODIUM 50 MG/SENNA 8.6 MG TAB PO SCH (21:35)
--- NOTE | 2017-04-21 21:55 | RADRPT ---
EXAM DATE/TIME: 04/21/2017 21:05 [place] COMPARISON: No previous studies available for comparison. INDICATIONS : Increased BUN/Creatnine. MEDICAL HISTORY : Hypercholesterolemia. Hypertension. Rheumatoid arthritis. Hearing loss. Chest pain. GOUT. SURGICAL HISTORY : Tonsillectomy. Benign cyst removed from tongue. ENCOUNTER: Initial ACUITY: 1 day PAIN SCORE: 0/10 LOCATION: Bilateral flank MEASUREMENTS: RIGHT KIDNEY: 10.0 x 5.0 x 4.8 cm LEFT KIDNEY: 11.3 x 5.7 x 6.0 cm FINDINGS: RIGHT KIDNEY: Renal cortex is normal in thickness and echotexture. No hydronephrosis, stone, or mass. LEFT KIDNEY: Renal cortex is normal in thickness and echotexture. No hydronephrosis, stone, or solid mass. 3.4 c m cyst midpole left kidney. BLADDER: Within normal limits given the degree of distension. CONCLUSION: 1. No acute findings. 3.4 cm cyst midpole left kidney. Dillan Armenta MD on April 21, 2017 at 21:53 Board Certified Radiologist. This report was verified electronically.
[2017-04-21 22:04] VITALS: PULSE 85
[2017-04-22] VITALS (7 sets, daily range): BP systolic 86–131; BP diastolic 47–68; PULSE 46–63; RESP 16–18; TEMP 96.2–97.4; O2SAT 92–100
[2017-04-22] MEDS: metroNIDAZOLE 500 MG TAB PO SCH ×2 (01:54→06:23)
[2017-04-22] MEDS ORDERED: metroNIDAZOLE 500 MG INJ 100 ML IV SCH (02:00)
[2017-04-22] MEDS ORDERED: SODIUM CHLORID 0.9% 500 ML INJ 500 ML IV ONE ×2 (05:30→10:00)
[2017-04-22 06:03] LABS: AUTOMATED NEUTROPHIL # 10.2 TH/MM3 (1.8-7.7); BASOPHIL # 0.1 TH/MM3 (0-0.2); BASOPHIL % 0.6 % (0.0-2.0); EOSINOPHIL # 0.1 TH/MM3 (0-0.4); EOSINOPHIL % 1.1 % (0.0-4.0); HEMATOCRIT 26.1 % (39.0-51.0); HEMOGLOBIN 8.3 GM/DL (13.0-17.0); LYMPH % 11.5 % (9.0-44.0); LYMPHOCYTE # 1.4 TH/MM3 (1.0-4.8); MEAN CELL VOLUME 67.8 FL (80.0-100.0); MEAN CORPUSCULAR HEMOGLOBIN 21.6 PG (27.0-34.0); MEAN CORPUSCULAR HGB CONC 31.9 % (32.0-36.0); MEAN PLATELET VOLUME 7.9 FL (7.0-11.0); MONO % 3.2 % (0.0-8.0); MONOCYTE # 0.4 TH/MM3 (0-0.9); NEUT % 83.6 % (16.0-70.0); PLATELET COUNT 391 TH/MM3 (150-450); RED BLOOD COUNT 3.85 MIL/MM3 (4.50-5.90); RED CELL DISTRIBUTION WIDTH 18.4 % (11.6-17.2); WHITE BLOOD COUNT 12.2 TH/MM3 (4.0-11.0)
[2017-04-22] MEDS: SODIUM CHLOR 0.9% 1000 ML INJ 1,000 ML IV SCH (06:24)
[2017-04-22 06:59] LABS: ALBUMIN 2.3 GM/DL (3.4-5.0); CALCIUM 7.1 MG/DL (8.5-10.1); CALCIUM-PROTEIN CORRECTED 8.5 MG/DL (8.5-10.1); CREATININE 3.04 MG/DL (0.60-1.30); TOTAL BILIRUBIN ADULT 0.2 MG/DL (0.2-1.0); TOTAL PROTEIN 4.6 GM/DL (6.4-8.2)
[2017-04-22] MEDS: DOCUSATE SODIUM 50 MG/SENNA 8.6 MG TAB PO SCH ×2 (09:00→21:00)
[2017-04-22] MEDS: SODIUM CHLORIDE 0.9% FLUSH 10 ML FLUSH IV FLUSH SCH ×2 (09:00→22:27)
[2017-04-22] MEDS ORDERED: POTASSIUM CHLORIDE 10 MEQ CONTROLLED RELEASE TAB PO ONE (10:00)
[2017-04-22] MEDS: METOPROLOL TARTRATE 25 MG TAB PO SCH ×2 (10:23→21:00)
--- NOTE | 2017-04-22 11:33 | HHI.PR ---
Subjective Remarks Deferred entry, but the patient was seen earlier at 9:50 AM. Patient states that he is having severe diarrhea. Denies fevers or chills. Denies chest pain or shortness of breath. Noted to have low blood pressure. Objective Vitals Vital Signs Date Time Temp Pulse Resp B/P (MAP) Pulse Ox O2 Delivery O2 Flow Rate FiO2 04/22/17 08:00 97.4 50 18 90/49 (63) 92 04/22/17 06:52 52 18 102/56 (71) 100 04/22/17 04:00 96.5 63 18 86/52 (63) 96 04/22/17 00:00 96.2 46 18 102/47 (65) 97 04/22/17 00:00 47 04/21/17 22:04 85 04/21/17 20:00 95.6 80 18 118/73 (88) 100 04/21/17 19:49 04/21/17 18:09 53 17 117/56 (76) 98 Room Air 04/21/17 17:30 97.9 64 16 113/56 (75) 100 Room Air 04/21/17 16:19 97 Room Air 04/21/17 15:40 98.2 92 16 85/49 (61) 99 I/O 04/21/17 04/21/17 04/21/17 04/22/17 04/22/17 04/22/17 07:00 15:00 23:00 07:00 15:00 23:00 Intake Total 2100 ml 1000 ml Balance 2100 ml 1000 ml Intake IV Total 2100 ml 1000 ml Result Diagram: 04/22/17 0453 04/22/17 0453 Imaging Last Impressions Renal Ultrasound 04/21/17 0000 Signed Impressions: Service Date/Time: Friday, April 21, 2017 21:05 - CONCLUSION: 1. No acute findings. 3.4 cm cyst midpole left kidney. Dillan Armenta MD Objective Remarks GENERAL: Elderly white male in no acute distress. HEENT: PERRLA, EOMI. No scleral icterus or conjunctival pallor. No lid lag or facial droop. CARDIOVASCULAR: Regular rate and rhythm. No obvious murmurs to auscultation. No chest tenderness to palpation. RESPIRATORY: No obvious rhonchi or wheezing. Clear to auscultation. Breath sounds equal bilaterally. GASTROINTESTINAL: Abdomen soft, non-tender, nondistended. BS normal. MUSCULOSKELETAL: Extremities without clubbing, cyanosis, or edema. No obvious deformities. NEUROLOGICAL: Awake, alert and oriented x4. No focal neurologic deficits. Moving both upper and lower extremities spontaneously. Procedures None Medications and IVs Current Medications Medications (Trade) Dose Ordered Sig/Mony Route Start Time Stop Time Status Last Admin (NS Flush) 2 ml UNSCH PRN IV FLUSH 04/21/17 19:00 (NS Flush) 2 ml BID IV FLUSH 04/21/17 21:00 (Zofran Inj) 4 mg Q6H PRN IVP 04/21/17 19:00 (Tylenol) 650 mg Q6H PRN PO 04/21/17 19:00 ([place] 5-325 Mg) 1 tab Q4H PRN PO 04/21/17 19:00 (Morphine Inj) 2 mg Q3H PRN IV PUSH 04/21/17 19:00 (Reba-Colace) 1 tab BID PO 04/21/17 21:00 (Milk Of Magnesia Liq) 30 ml Q12H PRN PO 04/21/17 19:00 (Senokot) 17.2 mg Q12H PRN PO 04/21/17 19:00 (Dulcolax Supp) 10 mg DAILY PRN RECTAL 04/21/17 19:00 (Lactulose Liq) 30 ml DAILY PRN PO 04/21/17 19:00 (Lopressor) 25 mg BID PO 04/21/17 21:00 04/22/17 10:23 Potassium Chloride 20 meq/ Sodium Chloride 38.5 meq/Sterile Water 1,019.625 ml @ 100 mls/hr [id number] IV 04/22/17 11:00 04/22/17 13:15 (Vancomycin 25 Mg/ml Liq) 250 mg QID PO 04/22/17 13:00 04/22/17 17:32 Metronidazole 100 ml @ 100 mls/hr Q8HR IV 04/22/17 14:00 04/22/17 13:16 A/P Problem List: (1) Sepsis ICD Code: A41.9 - Sepsis, unspecified organism (2) Colitis ICD Code: K52.9 - Noninfective gastroenteritis and colitis, unspecified (3) LYNDSEY (acute kidney injury) ICD Code: N17.9 - Acute kidney failure, unspecified Assessment and Plan 1. Sepsis: HR 92, WBC 16, Source-likely colitis. Follow up cultures, continue IV Abx, IVF for hydration. 2. Colitis: reports ongoing diarrhea x2-3 months, eval for infectious etiology. CT Abd/Pelvis w/ no acute findings, images reviewed by me. Hemoccult negative on exam. Check Stool studies, C Diff. GI Consult if needed for further evaluation/possible Colonoscopy. 04/22 patient had C. difficile diarrhea. Patient is on oral Flagyl. Discontinue oral Flagyl and start on oral vancomycin and IV Flagyl. 3. LYNDSEY: Creatinine 4.67, producing 1.10 on 10/08/16. Check UA, check Renal US , check protein/creat ratio, Consult Nephrology for further evaluation. Avoid NSAIDs/nephrotoxic agents. Monitor I/O. 04/22 creatinine trending down from 4.67-3.04. Continue IV fluids, renal ultrasound without hydronephrosis. Nephrology consulted recommendations pending. Continue to monitor BUN and creatinine, strict I's and O's. 4. Leukocytosis: Likely secondary to sepsis secondary to C. difficile diarrhea. WBC trending down. Continue to monitor CBC with differential. 5. Hypokalemia: Likely secondary to GI loss and diarrhea. Replace orally and continue to monitor BMP. 6. Hypotension: Likely secondary to hypovolemia. Patient status post 500 mils normal saline IV bolus yesterday night by night team. Patient still hypotensive in a.m. with a systolic blood pressure in the 90s. Repeat 7 mL normal saline IV bolus. Continue to monitor vital signs. 4. DVT Prophylaxis: SCD/Teds, add heparin SQ 5. Social work for d/c planning as needed Discharge Planning Continue to monitor the medical floor. Discharge pending clinical improvement, stabilization of renal function. Cassius García MD Apr 22, 2017 11:33
[2017-04-22] MEDS ORDERED: VANCOMYCIN 500 MG VIAL (FOR ORAL USE ONLY) PO SCH (13:00)
[2017-04-22] MEDS: VANCOMYCIN 25 MG/ML SOLN 100 ML BOTTLE PO SCH ×3 (13:15→22:19)
[2017-04-22] MEDS: POTASSIUM CHLORIDE INJ 20 MEQ, SODIUM CHLORIDE 23.4% INJ 38.5 MEQ in WATER STERILE FOR ... IV SCH (13:15)
[2017-04-22] MEDS: metroNIDAZOLE 500 MG INJ 100 ML IV SCH ×2 (13:16→22:21)
--- NOTE | 2017-04-22 15:29 | PD.CONS ---
HPI Service Nephrology Consult Requested By Dr. CASANOVA Reason for Consult Acute renal failure Primary Care Physician Sourav Lama M.D. History of Present Illness Patient is a 72-year-old white male with history of rheumatoid arthritis taking methotrexate once a week, he states that 4 months he is having diarrhea, has upper endoscopy and lower colonoscopy, he was told he may have small bowel colitis, he lost weight from 190 to 160s pounds, he states that he could not tolerate any oral and taking a multivitamin and with even orange juice he has to go to the bathroom immediately, first he thought he had side effects from methotrexate, he reduced the dose to 2 pills from 3 pills once a week, the problem remained and he presented with emergency with acute renal failure creatinine of 4.67 with hydration to 3.04 after hydration. He denies any kidney problems except for a cyst on his kidney. Review of Systems Constitutional: COMPLAINS OF: Fatigue, Weight loss Cardiovascular: COMPLAINS OF: Palpitations Gastrointestinal: COMPLAINS OF: Diarrhea Psychiatric: COMPLAINS OF: Anxiety Past Family Social History Allergies: Coded Allergies: No Known Allergies (Unverified Allergy, Unknown, 04/21/17) Past Medical History History of rheumatoid arthritis Colitis Diarrhea Hypertension Hyperlipidemia Past Surgical History Tonsillectomy Reported Medications Reported Meds & Active Scripts Active Reported Prednisone 5 Mg Tab 5 Mg PO DAILY Lisinopril 30 Mg Tab 30 Mg PO DAILY Metoprolol Tartrate 25 Mg Tab 25 Mg PO BID Allopurinol 300 Mg Tab 300 Mg PO DAILY Ferrous Sulfate 325 Mg (65 Mg Iron) Tablet 325 Mg PO DAILY Methotrexate 2.5 Mg Tab 7.5 Mg PO Q7D Pravastatin 40 Mg Tab 40 Mg PO DAILY Active Ordered Medications Current Medications Medications (Trade) Dose Ordered Sig/Mony Route Start Time Stop Time Status Last Admin (NS Flush) 2 ml UNSCH PRN IV FLUSH 04/21/17 19:00 (NS Flush) 2 ml BID IV FLUSH 04/21/17 21:00 (Zofran Inj) 4 mg Q6H PRN IVP 04/21/17 19:00 (Tylenol) 650 mg Q6H PRN PO 04/21/17 19:00 ([place] 5-325 Mg) 1 tab Q4H PRN PO 04/21/17 19:00 (Morphine Inj) 2 mg Q3H PRN IV PUSH 04/21/17 19:00 (Reba-Colace) 1 tab BID PO 04/21/17 21:00 (Milk Of Magnesia Liq) 30 ml Q12H PRN PO 04/21/17 19:00 (Senokot) 17.2 mg Q12H PRN PO 04/21/17 19:00 (Dulcolax Supp) 10 mg DAILY PRN RECTAL 04/21/17 19:00 (Lactulose Liq) 30 ml DAILY PRN PO 04/21/17 19:00 (Lopressor) 25 mg BID PO 04/21/17 21:00 04/22/17 10:23 Potassium Chloride 20 meq/ Sodium Chloride 38.5 meq/Sterile Water 1,019.625 ml @ 100 mls/hr [id number] IV 04/22/17 11:00 04/22/17 13:15 (Vancomycin 25 Mg/ml Liq) 250 mg QID PO 04/22/17 13:00 04/22/17 13:15 Metronidazole 100 ml @ 100 mls/hr Q8HR IV 04/22/17 14:00 04/22/17 13:16 Family History Noncontributory Social History History of smoking in the past quit 15 years ago Declined to mention anything about alcohol intake Physical Exam Vital Signs Vital Signs Date Time Temp Pulse Resp B/P (MAP) Pulse Ox O2 Delivery O2 Flow Rate FiO2 04/22/17 08:00 97.4 50 18 90/49 (63) 92 04/22/17 06:52 52 18 102/56 (71) 100 04/22/17 04:00 96.5 63 18 86/52 (63) 96 04/22/17 00:00 96.2 46 18 102/47 (65) 97 04/22/17 00:00 47 04/21/17 22:04 85 04/21/17 20:00 95.6 80 18 118/73 (88) 100 04/21/17 19:49 04/21/17 18:09 53 17 117/56 (76) 98 Room Air 04/21/17 17:30 97.9 64 16 113/56 (75) 100 Room Air 04/21/17 16:19 97 Room Air 04/21/17 15:40 98.2 92 16 85/49 (61) 99 Physical Exam GENERAL: Well-nourished, well-developed patient. SKIN: Warm and dry. HEAD: Normocephalic. EYES: No scleral icterus. No injection or drainage. NECK: Supple, trachea midline. No JVD or lymphadenopathy. CARDIOVASCULAR: Regular rate and rhythm without murmurs, gallops, or rubs. RESPIRATORY: Breath sounds equal bilaterally. No accessory muscle use. GASTROINTESTINAL: Abdomen soft, non-tender, nondistended. EXTREMITIES: No cyanosis, or edema. NEUROLOGICAL: Awake, alert, and oriented x 3. Non-focal. Laboratory Laboratory Tests Test 04/21/17 16:04 04/21/17 18:11 04/21/17 19:40 04/21/17 21:50 White Blood Count 16.5 Red Blood Count 5.21 Hemoglobin 11.2 Hematocrit 35.3 Mean Corpuscular Volume 67.7 Mean Corpuscular Hemoglobin 21.6 Mean Corpuscular Hemoglobin Concent 31.8 Red Cell Distribution Width 18.8 Platelet Count 560 Mean Platelet Volume 8.2 Neutrophils (%) (Auto) 86.4 Lymphocytes (%) (Auto) 10.7 Monocytes (%) (Auto) 1.9 Eosinophils (%) (Auto) 0.6 Basophils (%) (Auto) 0.4 Neutrophils # (Auto) 14.2 Lymphocytes # (Auto) 1.8 Monocytes # (Auto) 0.3 Eosinophils # (Auto) 0.1 Basophils # (Auto) 0.1 CBC Comment DIFF FINAL Differential Comment Prothrombin Time 10.0 Prothromb Time International Ratio 1.0 Activated Partial Thromboplast Time 29.2 Blood Urea Nitrogen 54 Creatinine 4.67 Random Glucose 91 Total Protein 7.4 Albumin 3.6 Calcium Level 9.0 Alkaline Phosphatase 69 Aspartate Amino Transf (AST/SGOT) 15 Alanine Aminotransferase (ALT/SGPT) 20 Total Bilirubin 0.3 Sodium Level 137 Potassium Level 3.6 Chloride Level 107 Carbon Dioxide Level 16.3 Anion Gap 14 Estimat Glomerular Filtration Rate 12 Ethyl Alcohol Level LESS THAN 3 Lactic Acid Level 1.2 Urine Color YELLOW Urine Turbidity CLEAR Urine pH 5.0 Urine Specific [place] 1.009 Urine Protein TRACE Urine Glucose (UA) NEG Urine Ketones NEG Urine Occult Blood NEG Urine Nitrite NEG Urine Bilirubin NEG Urine Urobilinogen LESS THAN 2.0 Urine Leukocyte Esterase NEG Urine RBC 1 Urine WBC 2 Urine Squamous Epithelial Cells 1 Urine Hyaline Casts 4 Urine Mucus FEW Microscopic Urinalysis Comment CULT NOT INDICATED Urine Random Creatinine 223 Urine Random Total Protein 33 Urine Protein/Creatinine Ratio 0.15 Stool C. difficile Toxin (PCR) POSITIVE Stl C. difficile Toxin Epiderm 027 PRESUMPTIVE POSITIVE Test 04/22/17 04:53 White Blood Count 12.2 Red Blood Count 3.85 Hemoglobin 8.3 Hematocrit 26.1 Mean Corpuscular Volume 67.8 Mean Corpuscular Hemoglobin 21.6 Mean Corpuscular Hemoglobin Concent 31.9 Red Cell Distribution Width 18.4 Platelet Count 391 Mean Platelet Volume 7.9 Neutrophils (%) (Auto) 83.6 Lymphocytes (%) (Auto) 11.5 Monocytes (%) (Auto) 3.2 Eosinophils (%) (Auto) 1.1 Basophils (%) (Auto) 0.6 Neutrophils # (Auto) 10.2 Lymphocytes # (Auto) 1.4 Monocytes # (Auto) 0.4 Eosinophils # (Auto) 0.1 Basophils # (Auto) 0.1 CBC Comment DIFF FINAL Differential Comment Blood Urea Nitrogen 47 Creatinine 3.04 Random Glucose 83 Total Protein 4.6 Albumin 2.3 Calcium Level 7.1 Alkaline Phosphatase 50 Aspartate Amino Transf (AST/SGOT) 6 Alanine Aminotransferase (ALT/SGPT) 12 Total Bilirubin 0.2 Sodium Level 147 Potassium Level 3.1 Chloride Level 122 Carbon Dioxide Level 16.0 Anion Gap 9 Estimat Glomerular Filtration Rate 20 Protein Corrected Calcium 8.5 Date/Time Source Procedure Growth Status 04/21/17 21:50 Stool Stool Cryptosporidium Exam - Final NEGATIVE - NO CRYPTOSPORIDIUM ANTIGEN... Complete 04/21/17 21:50 Stool Stool Giardia Antigen (JEROME) - Final NEGATIVE - NO GIARDIA ANTIGEN DETECTE... Complete Result Diagram: 04/22/17 0453 04/22/17 045 Assessment and Plan Problem List: (1) LYNDSEY (acute kidney injury) ICD Codes: N17.9 - Acute kidney failure, unspecified Plan: Patient appears to be severely dehydrated than morning to fluids Avoid NSAIDs Avoid nephrotoxin Avoid dye studies Follow BMP It appears prerenal and ultrasound was reviewed left renal cyst which patient acknowledged Nephrology to follow as needed (2) Colitis ICD Codes: K52.9 - Noninfective gastroenteritis and colitis, unspecified Plan: Continue supportive care use on metronidazole and IV fluid C. difficile is positive (3) Dehydration ICD Codes: E86.0 - Dehydration Plan: On IV 1/4 saline with potassium at 100 cc/h Bob Vega MD Apr 22, 2017 15:29
--- NOTE | 2017-04-22 15:43 | MB ---
cc: Loc Bedolla MD DATE OF CONSULT: 04/22/2017 REFERRING PHYSICIAN: Patricia Castro MD REASON: C. difficile with epidermal O27 strain. HISTORY OF PRESENT ILLNESS: This is a 72-year-old white male who presented to the emergency department with watery diarrhea. The patient reports he has been having diarrhea for a few weeks now. He says that every time he eats, he would have to run to the bathroom. He denies abdominal pain or cramping. 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 He states that he has problems with anemia and that he gets heart palpitations. He has not been on any antibiotics recently. He takes a multiple vitamin, which he states causes him to get some discomfort in the stomach after he takes it. He reports that he has been taking the multivitamins on an empty stomach. He does not recall having any fevers. PAST MEDICAL HISTORY: Rheumatoid arthritis, hypercholesterolemia, gout, hypertension, tonsillectomy, cyst on the kidney. ALLERGIES: NO KNOWN DRUG ALLERGIES. MEDICATIONS: Vancomycin p.o., metronidazole IV, potassium, Lopressor. SOCIAL HISTORY: The patient works as a information technology security manager. Reports of alcohol use. No tobacco. No illicit drugs. FAMILY HISTORY: Significant for coronary artery disease in the patient's grandparents and his mom. REVIEW OF SYSTEMS: CONSTITUTIONAL: Denies fever or chills. HEAD, EARS, EYES, NOSE, AND THROAT: Denies visual blurring or diplopia. Denies difficulty swallowing or soreness of the throat. Denies neck pain. CARDIOVASCULAR: Positive for palpitations. Denies chest pain. RESPIRATORY: Denies cough or shortness of breath. GASTROINTESTINAL: Significant for diarrhea. Denies nausea, vomiting, or abdominal pain. GENITOURINARY: Denies dysuria or frequency. HEMATOPOIETIC: Denies easy bruising. ENDOCRINE: Denies polyuria or polydipsia. INTEGUMENTARY: Denies skin rash or itching. NEUROLOGIC: Denies dizziness or problems with coordination. PSYCHIATRIC: Denies depression. PHYSICAL EXAMINATION: This is a slender male who is awake and alert and in no acute distress. VITAL SIGNS: Temperature 97.4, BP 90/49, respirations 18, heart rate 50. HEENT: Head is atraumatic. Extraocular movements grossly intact, pupils reactive to light. No icterus. OROPHARYNX: Moist mucosa without lesions. NECK: Supple without adenopathy. LUNGS: Clear breath sounds bilateral. HEART: Distant S1 and S2 without murmurs, rubs, or gallops. ABDOMEN: Bowel sounds present, flat, soft, nontender. RECTAL: Not performed. EXTREMITIES: No clubbing, cyanosis, or edema. SKIN: No rash. NEUROLOGIC: No gross focal findings. PSYCHIATRIC: The patient is calm and cooperative. LABORATORY STUDIES: WBC 12.2, platelets 391, hemoglobin 8.3, 83% neutrophils. Creatinine 3.04, BUN 47. Estimated GFR of 20. Sodium 147. LFTs normal. Stool C. difficile positive. IMPRESSION: 1. C. difficile colitis. 2. Acute kidney disease. 3. Leukocytosis secondary to C. difficile. RECOMMENDATIONS: 1. Continue metronidazole. 2. Continue vancomycin. 3. Monitor stool frequency. 4. Monitor clinical response to the antibiotic treatment. Thank you for this consultation. I will follow the patient's progress and will make further recommendations upon followup. Loc Bedolla MD FFD/TI , 12:39 PM , 01:15 PM
[2017-04-23 04:00] VITALS: BP 121/69; PULSE 51; RESP 18; TEMP 96.2; O2SAT 99
[2017-04-23] MEDS: POTASSIUM CHLORIDE INJ 20 MEQ, SODIUM CHLORIDE 23.4% INJ 38.5 MEQ in WATER STERILE FOR ... IV SCH ×2 (05:11→10:22)
[2017-04-23] MEDS: metroNIDAZOLE 500 MG INJ 100 ML IV SCH ×3 (05:12→22:39)
[2017-04-23 07:48] LABS: AUTOMATED NEUTROPHIL # 9.1 TH/MM3 (1.8-7.7); BASOPHIL # 0.1 TH/MM3 (0-0.2); BASOPHIL % 0.6 % (0.0-2.0); EOSINOPHIL # 0.2 TH/MM3 (0-0.4); LYMPH % 16.3 % (9.0-44.0); LYMPHOCYTE # 1.9 TH/MM3 (1.0-4.8); MEAN CELL VOLUME 68.6 FL (80.0-100.0); MEAN CORPUSCULAR HEMOGLOBIN 21.4 PG (27.0-34.0); MEAN CORPUSCULAR HGB CONC 31.2 % (32.0-36.0); MEAN PLATELET VOLUME 8.6 FL (7.0-11.0); MONO % 3.3 % (0.0-8.0); MONOCYTE # 0.4 TH/MM3 (0-0.9); NEUT % 77.8 % (16.0-70.0); PLATELET COUNT 345 TH/MM3 (150-450); RED BLOOD COUNT 3.22 MIL/MM3 (4.50-5.90); RED CELL DISTRIBUTION WIDTH 18.7 % (11.6-17.2); WHITE BLOOD COUNT 11.7 TH/MM3 (4.0-11.0)
[2017-04-23 07:55] LABS: HEMATOCRIT 22.1 % (39.0-51.0); HEMOGLOBIN 6.9 GM/DL (13.0-17.0)
[2017-04-23 08:00] VITALS: BP 112/57; PULSE 65; RESP 19; TEMP 95; O2SAT 94
[2017-04-23 08:06] LABS: ALBUMIN 2.6 GM/DL (3.4-5.0); ALKALINE PHOSPHATASE 49 U/L (45-117); ALT (GPT) 13 U/L (12-78); AST (GOT) 10 U/L (15-37); BICARBONATE 17.1 MEQ/L (21.0-32.0); BLOOD UREA NITROGEN 37 MG/DL (7-18); CALCIUM 8.4 MG/DL (8.5-10.1); CHLORIDE 119 MEQ/L (98-107); CREATININE 2.04 MG/DL (0.60-1.30); GLOMERULAR FILTRATION RATE 32 ML/MIN (>89); GLUCOSE,RANDOM 66 MG/DL (74-106); MAGNESIUM 1.7 MG/DL (1.5-2.5); PHOSPHORUS 2.3 MG/DL (2.5-4.9); SODIUM (NA) 145 MEQ/L (136-145); TOTAL BILIRUBIN ADULT 0.3 MG/DL (0.2-1.0); TOTAL PROTEIN 5.3 GM/DL (6.4-8.2)
[2017-04-23] MEDS ORDERED: ACETAMINOPHEN 325 MG TAB PO PRN (08:45)
[2017-04-23] MEDS ORDERED: SODIUM CHLOR 0.9% 250 ML INJ 250 ML IV ONE (08:45)
[2017-04-23] MEDS ORDERED: diphenhydrAMINE HCL 25 MG CAP PO PRN (08:45)
[2017-04-23 09:43] LABS: BASOPHIL % 0.4 % (0.0-2.0); EOSINOPHIL # 0.3 TH/MM3 (0-0.4); EOSINOPHIL % 2.4 % (0.0-4.0); HEMATOCRIT 29.8 % (39.0-51.0); HEMOGLOBIN 9.2 GM/DL (13.0-17.0); LYMPH % 15.2 % (9.0-44.0); LYMPHOCYTE # 1.7 TH/MM3 (1.0-4.8); MEAN CELL VOLUME 68.1 FL (80.0-100.0); MEAN CORPUSCULAR HEMOGLOBIN 21.1 PG (27.0-34.0); MEAN PLATELET VOLUME 8.3 FL (7.0-11.0); MONO % 3.5 % (0.0-8.0); MONOCYTE # 0.4 TH/MM3 (0-0.9); NEUT % 78.5 % (16.0-70.0); PLATELET COUNT 392 TH/MM3 (150-450); RED BLOOD COUNT 4.38 MIL/MM3 (4.50-5.90); RED CELL DISTRIBUTION WIDTH 18.6 % (11.6-17.2); WHITE BLOOD COUNT 11.5 TH/MM3 (4.0-11.0)
[2017-04-23] MEDS: VANCOMYCIN 25 MG/ML SOLN 100 ML BOTTLE PO SCH ×4 (10:23→22:40)
[2017-04-23] MEDS: METOPROLOL TARTRATE 25 MG TAB PO SCH ×2 (10:23→21:00)
[2017-04-23] MEDS: DOCUSATE SODIUM 50 MG/SENNA 8.6 MG TAB PO SCH ×2 (10:24→21:00)
[2017-04-23] MEDS: SODIUM CHLORIDE 0.9% FLUSH 10 ML FLUSH IV FLUSH SCH ×2 (10:24→22:41)
--- NOTE | 2017-04-23 10:33 | PD.CONS ---
HPI History of Present Illness This is a 72 year old male who presented with diarrhea lasting a few months. GI has been consulted for dropping hgb, which has dropped to 6.9. His baseline appears to be close to 8. He is pos for c diff and is getting antibiotics. he admits having intermittent black tarry stool when he takes a certain pill. He recently had EGD and colonoscopy with in the last few months, somewhere in [place] and says no bleeding was seen, polyp found, and he was told he would need a capsule encoscopy. Pt is limited historian and easily agitated. (Cherrie Martínez) PFSH Past Medical History PMH: HTN, Hyperlipidemia, Gout and Rheumatoid Arthritis Past Surgical History PAST SURGICAL HISTORY: Tonsillectomy (Cherrie Martínez) Coded Allergies: No Known Allergies (Unverified Allergy, Unknown, 04/21/17) Family History PAST FAMILY HISTORY: Reviewed. No h/o DM or CAD Social History PAST SOCIAL HISTORY: Positive for alcohol. Negative for tobacco or drugs. (Cherrie Martínez) Review of Systems Constitutional: DENIES: Chills Endocrine: DENIES: Polydipsia Eyes: DENIES: Blurred vision Ears, nose, mouth, throat: DENIES: Hearing loss Respiratory: DENIES: Cough Cardiovascular: DENIES: Chest pain Gastrointestinal: COMPLAINS OF: Abdominal pain, Black stools, DENIES: Nausea, Vomiting Genitourinary: DENIES: Hematuria Musculoskeletal: DENIES: Muscle aches Integumentary: DENIES: Abnormal pigmentation Neurologic: DENIES: Headache Psychiatric: DENIES: Confusion (Cherrie Martínez) GI Exam Vitals I&O Vital Signs Date Time Temp Pulse Resp B/P (MAP) Pulse Ox O2 Delivery O2 Flow Rate FiO2 04/23/17 04:00 96.2 51 18 121/69 (86) 99 04/22/17 20:00 97.3 63 18 131/68 (89) 99 04/22/17 16:00 96.6 63 16 110/56 (74) 98 04/22/17 12:00 97.2 63 16 107/54 (71) 94 I/O 04/22/17 04/22/17 04/22/17 04/23/17 04/23/17 04/23/17 07:00 15:00 23:00 07:00 15:00 23:00 Intake Total 1000 ml 1259.625 ml 480 ml Balance 1000 ml 1259.625 ml 480 ml Intake Oral 240 ml 480 ml IV Total 1000 ml 1019.625 ml # Voids 3 4 # Bowel Movements 5 4 Imaging Last Impressions Renal Ultrasound 04/21/17 0000 Signed Impressions: Service Date/Time: Friday, April 21, 2017 21:05 - CONCLUSION: 1. No acute findings. 3.4 cm cyst midpole left kidney. Dillan Armenta MD Laboratory Test 04/23/17 05:03 04/23/17 08:55 White Blood Count 11.7 TH/MM3 11.5 TH/MM3 Red Blood Count 3.22 MIL/MM3 4.38 MIL/MM3 Hemoglobin 6.9 GM/DL 9.2 GM/DL Hematocrit 22.1 % 29.8 % Mean Corpuscular Volume 68.6 FL 68.1 FL Mean Corpuscular Hemoglobin 21.4 PG 21.1 PG Mean Corpuscular Hemoglobin Concent 31.2 % 31.0 % Red Cell Distribution Width 18.7 % 18.6 % Platelet Count 345 TH/MM3 392 TH/MM3 Mean Platelet Volume 8.6 FL 8.3 FL Neutrophils (%) (Auto) 77.8 % 78.5 % Lymphocytes (%) (Auto) 16.3 % 15.2 % Monocytes (%) (Auto) 3.3 % 3.5 % Eosinophils (%) (Auto) 2.0 % 2.4 % Basophils (%) (Auto) 0.6 % 0.4 % Neutrophils # (Auto) 9.1 TH/MM3 9.0 TH/MM3 Lymphocytes # (Auto) 1.9 TH/MM3 1.7 TH/MM3 Monocytes # (Auto) 0.4 TH/MM3 0.4 TH/MM3 Eosinophils # (Auto) 0.2 TH/MM3 0.3 TH/MM3 Basophils # (Auto) 0.1 TH/MM3 0.0 TH/MM3 CBC Comment DIFF FINAL DIFF FINAL Differential Comment Blood Urea Nitrogen 37 MG/DL Creatinine 2.04 MG/DL Random Glucose 66 MG/DL Total Protein 5.3 GM/DL Albumin 2.6 GM/DL Calcium Level 8.4 MG/DL Phosphorus Level 2.3 MG/DL Magnesium Level 1.7 MG/DL Alkaline Phosphatase 49 U/L Aspartate Amino Transf (AST/SGOT) 10 U/L Alanine Aminotransferase (ALT/SGPT) 13 U/L Total Bilirubin 0.3 MG/DL Sodium Level 145 MEQ/L Potassium Level 4.1 MEQ/L Chloride Level 119 MEQ/L Carbon Dioxide Level 17.1 MEQ/L Anion Gap 9 MEQ/L Estimat Glomerular Filtration Rate 32 ML/MIN Date/Time Source Procedure Growth Status 04/21/17 21:50 Stool Stool Cryptosporidium Exam - Final NEGATIVE - NO CRYPTOSPORIDIUM ANTIGEN... Complete 04/21/17 21:50 Stool Stool Giardia Antigen (JEROME) - Final NEGATIVE - NO GIARDIA ANTIGEN DETECTE... Complete Physical Examination HEENT: PERRL; normocephalic; atraumatic; no jaundice. CHEST: CTA CARDIAC: RRR ABDOMEN: Soft, nondistended, nontender; no hepatosplenomegaly; bowel sounds are present in all four quadrants. EXTREMITIES: No clubbing, cyanosis, or edema. SKIN: Normal; no rash; no jaundice. MEDICAL PSYCHOTHERAPIST: No focal deficits; alert and oriented times three. (Cherrie Martínez) Assessment and Plan Plan ASSESSMENT - diarrhea - onset 3 months, pos c diff, ID on case - anemia, ?melena- hgb dropped from 11.2 to 6.9 in 2 days but on recheck is 9.9 this is not far from his baseline. he says he only has dark stool when he takes a certain pill. Denies areli bleeding. recent EGD and colonoscopy per pt and was told he needed capsule endoscopy PLAN - enteroscopy vs capsule endoscopy as outpt - monitor HH - notify GI of active bleeding - abx per ID - supportive care pt seen by myself and Dr Isabel (Cherrie Martínez) Plan Patient was seen and examined, agree with above-noted, we will monitor hemoglobin, continue treatment for C. difficile, capsule endoscopy as an outpatient (Ludivina Isabel MD) Cherrie Martínez Apr 23, 2017 10:33 Ludivina Isabel MD Apr 24, 2017 09:25
[2017-04-23 12:00] VITALS: BP 105/58; PULSE 79; RESP 17; TEMP 98.4; O2SAT 94
--- NOTE | 2017-04-23 13:41 | HHI.NPPN ---
Objective Data Data 04/23/17 04/24/17 19:00 07:00 Intake Total 200 ml Balance 200 ml IV Total 200 ml # Bowel Movements 1 Vital Signs Date Time Temp Pulse Resp B/P (MAP) Pulse Ox O2 Delivery O2 Flow Rate FiO2 04/23/17 12:00 98.4 79 17 105/58 (74) 94 04/23/17 08:00 95.0 65 19 112/57 (75) 94 04/23/17 04:00 96.2 51 18 121/69 (86) 99 04/22/17 20:00 97.3 63 18 131/68 (89) 99 04/22/17 16:00 96.6 63 16 110/56 (74) 98 -: 04/23/17 0855 04/23/17 0503 Microbiology 04/23/17 Stool Occult Blood (JEROME), Received Pending Assessment/Plan Problem List: (1) LYNDSEY (acute kidney injury) ICD Codes: N17.9 - Acute kidney failure, unspecified Plan: Patient is better and wants to be discharged Cr down to 2 Nephrology signed off Nephrology to follow as needed (2) Colitis ICD Codes: K52.9 - Noninfective gastroenteritis and colitis, unspecified Plan: Vanco/metronidazole C. difficile is positive (3) Dehydration ICD Codes: E86.0 - Dehydration Plan: resolved Bob Vega MD Apr 23, 2017 13:41
--- NOTE | 2017-04-23 15:01 | HHI.IDPN ---
Note Infectious Disease Note Patient says he feels okay.Has mild abdominal crampy pain. Decreased stools frequency. stools has small pellets and mucus. Afebrile. No nausea. Eating solid food. 72-year-old white male who presented to the emergency department with watery diarrhea. The patient reports he has been having diarrhea for a few weeks now. He said that every time he eats, he would have to run to the bathroom. PAST MEDICAL HISTORY: Rheumatoid arthritis, hypercholesterolemia, gout, hypertension, tonsillectomy, cyst on the kidney. ALLERGIES: NO KNOWN DRUG ALLERGIES. MEDICATIONS: Current Medications Medications (Trade) Dose Ordered Sig/Mony Route PRN Reason Start Time Stop Time Status Last Admin Dose Admin Sodium Chloride (NS Flush) 2 ml UNSCH PRN IV FLUSH FLUSH AFTER USING IV ACCESS 04/21/17 19:00 Sodium Chloride (NS Flush) 2 ml BID IV FLUSH 04/21/17 21:00 04/22/17 22:27 Ondansetron HCl (Zofran Inj) 4 mg Q6H PRN IVP NAUSEA OR VOMITING 04/21/17 19:00 Acetaminophen (Tylenol) 650 mg Q6H PRN PO FEVER/PAIN SCALE 1 TO 2 04/21/17 19:00 Acetaminophen/ Hydrocodone Bitart ([place] 5-325 Mg) 1 tab Q4H PRN PO PAIN SCALE 3 TO 5 04/21/17 19:00 Morphine Sulfate (Morphine Inj) 2 mg Q3H PRN IV PUSH Pain 6-10 04/21/17 19:00 Senna/Docusate Sodium (Reba-Colace) 1 tab BID PO 04/21/17 21:00 Magnesium Hydroxide (Milk Of Magnesia Liq) 30 ml Q12H PRN PO Mild constipation 04/21/17 19:00 Sennosides (Senokot) 17.2 mg Q12H PRN PO Moderate constipation 04/21/17 19:00 Bisacodyl (Dulcolax Supp) 10 mg DAILY PRN RECTAL SEVERE CONSITIPATION 04/21/17 19:00 Lactulose (Lactulose Liq) 30 ml DAILY PRN PO SEVERE CONSITIPATION 04/21/17 19:00 Metoprolol Tartrate (Lopressor) 25 mg BID PO 04/21/17 21:00 04/23/17 10:23 Vancomycin HCl (Vancomycin 25 Mg/ml Liq) 250 mg QID PO 04/22/17 13:00 04/23/17 14:22 Metronidazole 100 ml @ 100 mls/hr Q8HR IV 04/22/17 14:00 04/23/17 14:22 SOCIAL HISTORY: The patient works as a senior information security engineer. Reports of alcohol use. No tobacco. No illicit drugs. OBJECTIVE:: Vital Signs Date Time Temp Pulse Resp B/P (MAP) Pulse Ox O2 Delivery O2 Flow Rate FiO2 04/23/17 12:00 98.4 79 17 105/58 (74) 94 04/23/17 08:00 95.0 65 19 112/57 (75) 94 04/23/17 04:00 96.2 51 18 121/69 (86) 99 04/22/17 20:00 97.3 63 18 131/68 (89) 99 04/22/17 16:00 96.6 63 16 110/56 (74) 98 Laboratory Tests Test 04/21/17 16:04 04/22/17 04:53 04/23/17 05:03 04/23/17 08:55 White Blood Count 16.5 TH/MM3 12.2 TH/MM3 11.7 TH/MM3 11.5 TH/MM3 Red Blood Count 5.21 MIL/MM3 3.85 MIL/MM3 3.22 MIL/MM3 4.38 MIL/MM3 Hemoglobin 11.2 GM/DL 8.3 GM/DL 6.9 GM/DL 9.2 GM/DL Hematocrit 35.3 % 26.1 % 22.1 % 29.8 % Mean Corpuscular Volume 67.7 FL 67.8 FL 68.6 FL 68.1 FL Mean Corpuscular Hemoglobin 21.6 PG 21.6 PG 21.4 PG 21.1 PG Mean Corpuscular Hemoglobin Concent 31.8 % 31.9 % 31.2 % 31.0 % Red Cell Distribution Width 18.8 % 18.4 % 18.7 % 18.6 % Platelet Count 560 TH/MM3 391 TH/MM3 345 TH/MM3 392 TH/MM3 Mean Platelet Volume 8.2 FL 7.9 FL 8.6 FL 8.3 FL Neutrophils (%) (Auto) 86.4 % 83.6 % 77.8 % 78.5 % Lymphocytes (%) (Auto) 10.7 % 11.5 % 16.3 % 15.2 % Monocytes (%) (Auto) 1.9 % 3.2 % 3.3 % 3.5 % Eosinophils (%) (Auto) 0.6 % 1.1 % 2.0 % 2.4 % Basophils (%) (Auto) 0.4 % 0.6 % 0.6 % 0.4 % Neutrophils # (Auto) 14.2 TH/MM3 10.2 TH/MM3 9.1 TH/MM3 9.0 TH/MM3 Lymphocytes # (Auto) 1.8 TH/MM3 1.4 TH/MM3 1.9 TH/MM3 1.7 TH/MM3 Monocytes # (Auto) 0.3 TH/MM3 0.4 TH/MM3 0.4 TH/MM3 0.4 TH/MM3 Eosinophils # (Auto) 0.1 TH/MM3 0.1 TH/MM3 0.2 TH/MM3 0.3 TH/MM3 Basophils # (Auto) 0.1 TH/MM3 0.1 TH/MM3 0.1 TH/MM3 0.0 TH/MM3 CBC Comment DIFF FINAL DIFF FINAL DIFF FINAL DIFF FINAL Differential Comment Laboratory Tests Test 04/21/17 16:04 04/21/17 18:11 04/22/17 04:53 04/23/17 05:03 Blood Urea Nitrogen 54 MG/DL 47 MG/DL 37 MG/DL Creatinine 4.67 MG/DL 3.04 MG/DL 2.04 MG/DL Random Glucose 91 MG/DL 83 MG/DL 66 MG/DL Total Protein 7.4 GM/DL 4.6 GM/DL 5.3 GM/DL Albumin 3.6 GM/DL 2.3 GM/DL 2.6 GM/DL Calcium Level 9.0 MG/DL 7.1 MG/DL 8.4 MG/DL Alkaline Phosphatase 69 U/L 50 U/L 49 U/L Aspartate Amino Transf (AST/SGOT) 15 U/L 6 U/L 10 U/L Alanine Aminotransferase (ALT/SGPT) 20 U/L 12 U/L 13 U/L Total Bilirubin 0.3 MG/DL 0.2 MG/DL 0.3 MG/DL Sodium Level 137 MEQ/L 147 MEQ/L 145 MEQ/L Potassium Level 3.6 MEQ/L 3.1 MEQ/L 4.1 MEQ/L Chloride Level 107 MEQ/L 122 MEQ/L 119 MEQ/L Carbon Dioxide Level 16.3 MEQ/L 16.0 MEQ/L 17.1 MEQ/L Anion Gap 14 MEQ/L 9 MEQ/L 9 MEQ/L Estimat Glomerular Filtration Rate 12 ML/MIN 20 ML/MIN 32 ML/MIN Lactic Acid Level 1.2 mmol/L Protein Corrected Calcium 8.5 MG/DL Phosphorus Level 2.3 MG/DL Magnesium Level 1.7 MG/DL Microbiology Date/Time Source Procedure Growth Status 04/23/17 10:32 Stool Stool Stool Occult Blood (JEROME) - Final HEMOCCULT NEGATIVE Complete 04/21/17 21:50 Stool Stool Cryptosporidium Exam - Final NEGATIVE - NO CRYPTOSPORIDIUM ANTIGEN... Complete 04/21/17 21:50 Stool Stool Giardia Antigen (JEROME) - Final NEGATIVE - NO GIARDIA ANTIGEN DETECTE... Complete 04/21/17 21:50 Stool Stool - Final NO ENTERIC PATHOGENS DETECTED BY PCR... Complete Renal Ultrasound 04/21/17 0000 Signed Impressions: Service Date/Time: Friday, April 21, 2017 21:05 - CONCLUSION: 1. No acute findings. 3.4 cm cyst midpole left kidney. Dillan Armenta MD PHYSICAL EXAMINATION: GENERAL: Awake and alert and in no acute distress. HEENT: Extraocular movements grossly intact, pupils reactive to light. No icterus. OROPHARYNX: Moist mucosa without lesions. NECK: Supple without adenopathy. LUNGS: Clear breath sounds. HEART: Distant S1 and S2 without murmurs, rubs, or gallops. ABDOMEN: Bowel sounds present, flat, soft, nontender. EXTREMITIES: No clubbing, cyanosis, or edema. SKIN: No rash. NEUROLOGIC: No gross focal findings. PSYCHIATRIC: Calm and cooperative. IMPRESSION: 1. C. difficile colitis. 2. Acute kidney disease. 3. Leukocytosis secondary to C. difficile. WBC lower. RECOMMENDATIONS: 1. Continue metronidazole. 2. Continue vancomycin. 3. Monitor stool frequency. 4. Monitor clinical response. If improvement in Stools continue he can be treated with PO Vancomycin for 10 more days for the c. diff. Loc Bedolla MD Apr 23, 2017 15:00
--- NOTE | 2017-04-23 15:46 | HHI.PR ---
Subjective Remarks Patient states diarrhea is slowing down, feels hungry Requesting a regular diet. Denies fevers or chills. Objective Vitals Vital Signs Date Time Temp Pulse Resp B/P (MAP) Pulse Ox O2 Delivery O2 Flow Rate FiO2 04/23/17 12:00 98.4 79 17 105/58 (74) 94 04/23/17 08:00 95.0 65 19 112/57 (75) 94 04/23/17 04:00 96.2 51 18 121/69 (86) 99 04/22/17 20:00 97.3 63 18 131/68 (89) 99 04/22/17 16:00 96.6 63 16 110/56 (74) 98 I/O 04/22/17 04/22/17 04/22/17 04/23/17 04/23/17 04/23/17 07:00 15:00 23:00 07:00 15:00 23:00 Intake Total 1000 ml 1259.625 ml 480 ml 200 ml Balance 1000 ml 1259.625 ml 480 ml 200 ml Intake Oral 240 ml 480 ml IV Total 1000 ml 1019.625 ml 200 ml # Voids 3 4 # Bowel Movements 5 4 1 Result Diagram: 04/23/17 0855 04/23/17 0503 Imaging Last Impressions Renal Ultrasound 04/21/17 0000 Signed Impressions: Service Date/Time: Friday, April 21, 2017 21:05 - CONCLUSION: 1. No acute findings. 3.4 cm cyst midpole left kidney. Dillan Armenta MD Objective Remarks GENERAL: Elderly white male in no acute distress. HEENT: PERRLA, EOMI. No scleral icterus or conjunctival pallor. No lid lag or facial droop. CARDIOVASCULAR: Regular rate and rhythm. No obvious murmurs to auscultation. No chest tenderness to palpation. RESPIRATORY: No obvious rhonchi or wheezing. Clear to auscultation. Breath sounds equal bilaterally. GASTROINTESTINAL: Abdomen soft, non-tender, nondistended. BS normal. MUSCULOSKELETAL: Extremities without clubbing, cyanosis, or edema. No obvious deformities. NEUROLOGICAL: Awake, alert and oriented x4. No focal neurologic deficits. Moving both upper and lower extremities spontaneously. Procedures None Medications and IVs Current Medications Medications (Trade) Dose Ordered Sig/Mony Route Start Time Stop Time Status Last Admin (NS Flush) 2 ml UNSCH PRN IV FLUSH 04/21/17 19:00 (NS Flush) 2 ml BID IV FLUSH 04/21/17 21:00 04/23/17 22:41 (Zofran Inj) 4 mg Q6H PRN IVP 04/21/17 19:00 (Tylenol) 650 mg Q6H PRN PO 04/21/17 19:00 ([place] 5-325 Mg) 1 tab Q4H PRN PO 04/21/17 19:00 (Morphine Inj) 2 mg Q3H PRN IV PUSH 04/21/17 19:00 (Reba-Colace) 1 tab BID PO 04/21/17 21:00 (Milk Of Magnesia Liq) 30 ml Q12H PRN PO 04/21/17 19:00 (Senokot) 17.2 mg Q12H PRN PO 04/21/17 19:00 (Dulcolax Supp) 10 mg DAILY PRN RECTAL 04/21/17 19:00 (Lactulose Liq) 30 ml DAILY PRN PO 04/21/17 19:00 (Lopressor) 25 mg BID PO 04/21/17 21:00 04/23/17 10:23 (Vancomycin 25 Mg/ml Liq) 250 mg QID PO 04/22/17 13:00 04/23/17 22:40 Metronidazole 100 ml @ 100 mls/hr Q8HR IV 04/22/17 14:00 04/23/17 22:39 (Rheumatrex) 5 mg We PO 04/24/17 09:00 A/P Problem List: (1) Sepsis ICD Code: A41.9 - Sepsis, unspecified organism (2) Colitis ICD Code: K52.9 - Noninfective gastroenteritis and colitis, unspecified (3) LYNDSEY (acute kidney injury) ICD Code: N17.9 - Acute kidney failure, unspecified Assessment and Plan 1. Sepsis: HR 92, WBC 16, Source-likely colitis. Follow up cultures, continue IV Abx, IVF for hydration. 2. Colitis: reports ongoing diarrhea x2-3 months, eval for infectious etiology. CT Abd/Pelvis w/ no acute findings, images reviewed by me. Hemoccult negative on exam. Check Stool studies, C Diff. GI Consult if needed for further evaluation/possible Colonoscopy. 04/22 patient had C. difficile diarrhea. Patient is on oral Flagyl. Discontinue oral Flagyl and start on oral vancomycin and IV Flagyl. 04/23 ID consultation appreciated. Continue antibiotics as above. Potassium normal. 3. LYNDSEY: Creatinine 4.67, producing 1.10 on 10/08/16. Check UA, check Renal US , check protein/creat ratio, Consult Nephrology for further evaluation. Avoid NSAIDs/nephrotoxic agents. Monitor I/O. 04/22 creatinine trending down from 4.67-3.04. Continue IV fluids, renal ultrasound without hydronephrosis. Nephrology consulted recommendations pending. Continue to monitor BUN and creatinine, strict I's and O's. 4. Leukocytosis: Likely secondary to sepsis secondary to C. difficile diarrhea. WBC trending down. Continue to monitor CBC with differential. 5. Hypokalemia: Likely secondary to GI loss and diarrhea. Replace orally and continue to monitor BMP. Potassium normal today. 6. Hypotension: Likely secondary to hypovolemia. Patient status post 500 mils normal saline IV bolus yesterday night by night team. Patient still hypotensive in a.m. with a systolic blood pressure in the 90s. Repeatnormal saline IV bolus. Continue to monitor vital signs. 04/23 hypotension resolved. Continue to monitor vital signs. 4. DVT Prophylaxis: SCD/Teds, add heparin SQ 5. Social work for d/c planning as needed Discharge Planning Continue to monitor the medical floor. Discharge pending clinical improvement, stabilization of renal function. Cassius García MD Apr 23, 2017 15:46
[2017-04-23 16:00] VITALS: BP 120/61; PULSE 53; RESP 20; TEMP 96.3; O2SAT 94
[2017-04-23 20:00] VITALS: BP 114/63; PULSE 63; RESP 18; TEMP 96.7; O2SAT 94
[2017-04-24] VITALS: BP 143/81; PULSE 63; RESP 18; TEMP 96.4; O2SAT 98
[2017-04-24 04:00] VITALS: BP 140/81; PULSE 62; RESP 18; TEMP 97.7; O2SAT 98
[2017-04-24] MEDS: metroNIDAZOLE 500 MG INJ 100 ML IV SCH ×3 (06:53→20:47)
[2017-04-24 08:00] VITALS: BP 138/76; PULSE 59; PULSE 66; RESP 18; TEMP 98.1; O2SAT 99
[2017-04-24 08:14] LABS: AUTOMATED NEUTROPHIL # 6.6 TH/MM3 (1.8-7.7); BASOPHIL % 0.4 % (0.0-2.0); EOSINOPHIL # 0.3 TH/MM3 (0-0.4); EOSINOPHIL % 3.6 % (0.0-4.0); HEMATOCRIT 27.1 % (39.0-51.0); HEMOGLOBIN 8.5 GM/DL (13.0-17.0); LYMPH % 14.7 % (9.0-44.0); LYMPHOCYTE # 1.3 TH/MM3 (1.0-4.8); MEAN CELL VOLUME 67.9 FL (80.0-100.0); MEAN CORPUSCULAR HEMOGLOBIN 21.3 PG (27.0-34.0); MEAN CORPUSCULAR HGB CONC 31.4 % (32.0-36.0); MONOCYTE # 0.3 TH/MM3 (0-0.9); NEUT % 77.3 % (16.0-70.0); PLATELET COUNT 358 TH/MM3 (150-450); RED BLOOD COUNT 3.99 MIL/MM3 (4.50-5.90); RED CELL DISTRIBUTION WIDTH 18.6 % (11.6-17.2); WHITE BLOOD COUNT 8.6 TH/MM3 (4.0-11.0)
[2017-04-24 08:47] LABS: ALBUMIN 2.6 GM/DL (3.4-5.0); ALT (GPT) 10 U/L (12-78); AST (GOT) 10 U/L (15-37); BICARBONATE 18.5 MEQ/L (21.0-32.0); BLOOD UREA NITROGEN 21 MG/DL (7-18); CALCIUM 8.1 MG/DL (8.5-10.1); CHLORIDE 121 MEQ/L (98-107); CREATININE 1.28 MG/DL (0.60-1.30); GLOMERULAR FILTRATION RATE 55 ML/MIN (>89); GLUCOSE,RANDOM 104 MG/DL (74-106); MAGNESIUM 1.5 MG/DL (1.5-2.5); SODIUM (NA) 147 MEQ/L (136-145)
[2017-04-24 08:49] LABS: ALKALINE PHOSPHATASE 45 U/L (45-117); PHOSPHORUS 1.8 MG/DL (2.5-4.9); TOTAL BILIRUBIN ADULT 0.2 MG/DL (0.2-1.0); TOTAL PROTEIN 5.1 GM/DL (6.4-8.2)
[2017-04-24] MEDS ORDERED: METHOTREXATE 2.5 MG TAB PO SCH (09:00)
[2017-04-24] MEDS: DOCUSATE SODIUM 50 MG/SENNA 8.6 MG TAB PO SCH ×2 (09:00→20:47)
[2017-04-24] MEDS: VANCOMYCIN 25 MG/ML SOLN 100 ML BOTTLE PO SCH ×4 (09:47→21:50)
[2017-04-24] MEDS: METOPROLOL TARTRATE 25 MG TAB PO SCH ×2 (09:47→20:47)
[2017-04-24] MEDS: SODIUM CHLORIDE 0.9% FLUSH 10 ML FLUSH IV FLUSH SCH ×2 (09:57→20:46)
--- NOTE | 2017-04-24 10:36 | HHI.GIFU ---
Subjective Remarks Pt just back from bathroom. Still having frequent BM but they are more formed, not watery. EAting ok. Wants to go home. (Cherrie Martínez) Objective Vitals I&O Vital Signs Date Time Temp Pulse Resp B/P (MAP) Pulse Ox O2 Delivery O2 Flow Rate FiO2 04/24/17 08:00 98.1 66 18 138/76 (96) 99 04/24/17 08:00 59 04/24/17 04:00 97.7 62 18 140/81 (100) 98 04/24/17 00:00 96.4 63 18 143/81 (101) 98 04/23/17 20:00 96.7 63 18 114/63 (80) 94 04/23/17 16:00 96.3 53 20 120/61 (80) 94 04/23/17 12:00 98.4 79 17 105/58 (74) 94 I/O 04/23/17 04/23/17 04/23/17 04/24/17 04/24/17 04/24/17 07:00 15:00 23:00 07:00 15:00 23:00 Intake Total 480 ml 200 ml 840 ml 650 ml Balance 480 ml 200 ml 840 ml 650 ml Intake Oral 480 ml 740 ml 650 ml IV Total 200 ml 100 ml # Voids 4 5 3 # Bowel Movements 4 1 4 5 Laboratory Laboratory Tests Test 04/24/17 07:47 White Blood Count 8.6 Red Blood Count 3.99 Hemoglobin 8.5 Hematocrit 27.1 Mean Corpuscular Volume 67.9 Mean Corpuscular Hemoglobin 21.3 Mean Corpuscular Hemoglobin Concent 31.4 Red Cell Distribution Width 18.6 Platelet Count 358 Mean Platelet Volume 8.0 Neutrophils (%) (Auto) 77.3 Lymphocytes (%) (Auto) 14.7 Monocytes (%) (Auto) 4.0 Eosinophils (%) (Auto) 3.6 Basophils (%) (Auto) 0.4 Neutrophils # (Auto) 6.6 Lymphocytes # (Auto) 1.3 Monocytes # (Auto) 0.3 Eosinophils # (Auto) 0.3 Basophils # (Auto) 0.0 CBC Comment DIFF FINAL Differential Comment Blood Urea Nitrogen 21 Creatinine 1.28 Random Glucose 104 Total Protein 5.1 Albumin 2.6 Calcium Level 8.1 Phosphorus Level 1.8 Magnesium Level 1.5 Alkaline Phosphatase 45 Aspartate Amino Transf (AST/SGOT) 10 Alanine Aminotransferase (ALT/SGPT) 10 Total Bilirubin 0.2 Sodium Level 147 Potassium Level 3.8 Chloride Level 121 Carbon Dioxide Level 18.5 Anion Gap 8 Estimat Glomerular Filtration Rate 55 Date/Time Source Procedure Growth Status 04/23/17 10:32 Stool Stool Stool Occult Blood (JEROME) - Final HEMOCCULT NEGATIVE Complete Imaging Last Impressions Renal Ultrasound 04/21/17 0000 Signed Impressions: Service Date/Time: Friday, April 21, 2017 21:05 - CONCLUSION: 1. No acute findings. 3.4 cm cyst midpole left kidney. Dillan Armenta MD Physical Exam HEENT: PERRL; normocephalic; atraumatic; no jaundice. CHEST: unlabored CARDIAC: RRR ABDOMEN: Soft, nondistended, nontender; EXTREMITIES: No clubbing, cyanosis, or edema. SKIN: Normal; no rash; no jaundice. 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 (Cherrie Martínez) Assessment and Plan Plan ASSESSMENT - diarrhea - onset 3 months, pos c diff, ID on case - anemia, ?melena- hgb dropped from 11.2 to 6.9 in 2 days but on recheck is 9.9 this is not far from his baseline. he says he only has dark stool when he takes a certain pill. Denies areli bleeding. recent EGD and colonoscopy per pt and was told he needed capsule endoscopy 04/24/17 stool soft, more formed. Feeling better, wants to go home. denies black tarry stool or bleeding. HH relatively stable. WBC today is WNL PLAN - capsule endoscopy as outpt - monitor HH - continue abx per ID - supportive care - follow up with GI after d/c - ok to d/c from GI standpoint pt seen by myself and Dr Isabel (Cherrie Martínez) Plan Patient was seen and examined, agree with above-noted, patient has C. difficile , he also had anemia he recently had an upper endoscopy and colonoscopy per patient, he wants to go home, if his diarrhea slowed down he may be able to go home with schedule for capsule endoscopy as an outpatient, continue monitoring of his H&H (Ludivina Isabel MD) Cherrie Martínez Apr 24, 2017 10:36 Ludivina Isabel MD Apr 24, 2017 17:47
--- NOTE | 2017-04-24 11:07 | HHI.IDPN ---
Note Infectious Disease Note Patient says he feels okay. Continues to have mucousy stool. Frequent. Had 5 bowel movements so far today. Notes he has just a slight abdominal cramping with bowel movement. Drinking only liquids. Afebrile. No nausea. 72-year-old white male who presented to the emergency department with watery diarrhea. The patient reports he has been having diarrhea for a few weeks now. He said that every time he eats, he would have to run to the bathroom. PAST MEDICAL HISTORY: Rheumatoid arthritis, hypercholesterolemia, gout, hypertension, tonsillectomy, cyst on the kidney. ALLERGIES: NO KNOWN DRUG ALLERGIES. MEDICATIONS: Current Medications Medications (Trade) Dose Ordered Sig/Mony Route PRN Reason Start Time Stop Time Status Last Admin Dose Admin Sodium Chloride (NS Flush) 2 ml UNSCH PRN IV FLUSH FLUSH AFTER USING IV ACCESS 04/21/17 19:00 Sodium Chloride (NS Flush) 2 ml BID IV FLUSH 04/21/17 21:00 04/24/17 09:57 Ondansetron HCl (Zofran Inj) 4 mg Q6H PRN IVP NAUSEA OR VOMITING 04/21/17 19:00 Acetaminophen (Tylenol) 650 mg Q6H PRN PO FEVER/PAIN SCALE 1 TO 2 04/21/17 19:00 Acetaminophen/ Hydrocodone Bitart ([place] 5-325 Mg) 1 tab Q4H PRN PO PAIN SCALE 3 TO 5 04/21/17 19:00 Morphine Sulfate (Morphine Inj) 2 mg Q3H PRN IV PUSH Pain 6-10 04/21/17 19:00 Senna/Docusate Sodium (Reba-Colace) 1 tab BID PO 04/21/17 21:00 Magnesium Hydroxide (Milk Of Magnesia Liq) 30 ml Q12H PRN PO Mild constipation 04/21/17 19:00 Sennosides (Senokot) 17.2 mg Q12H PRN PO Moderate constipation 04/21/17 19:00 Bisacodyl (Dulcolax Supp) 10 mg DAILY PRN RECTAL SEVERE CONSITIPATION 04/21/17 19:00 Lactulose (Lactulose Liq) 30 ml DAILY PRN PO SEVERE CONSITIPATION 04/21/17 19:00 Metoprolol Tartrate (Lopressor) 25 mg BID PO 04/21/17 21:00 04/24/17 09:47 Vancomycin HCl (Vancomycin 25 Mg/ml Liq) 250 mg QID PO 04/22/17 13:00 04/24/17 09:47 Metronidazole 100 ml @ 100 mls/hr Q8HR IV 04/22/17 14:00 04/24/17 06:53 Methotrexate (Rheumatrex) 5 mg We PO 04/24/17 09:00 04/24/17 09:56 Lactobacillus Acidophilus (Lactinex) 1 tab TID PO 04/24/17 13:00 SOCIAL HISTORY: The patient works as a information systems security developer. Reports of alcohol use. No tobacco. No illicit drugs. OBJECTIVE:: Vital Signs Date Time Temp Pulse Resp B/P (MAP) Pulse Ox O2 Delivery O2 Flow Rate FiO2 04/24/17 08:00 98.1 66 18 138/76 (96) 99 04/24/17 08:00 59 04/24/17 04:00 97.7 62 18 140/81 (100) 98 04/24/17 00:00 96.4 63 18 143/81 (101) 98 04/23/17 20:00 96.7 63 18 114/63 (80) 94 04/23/17 16:00 96.3 53 20 120/61 (80) 94 04/23/17 12:00 98.4 79 17 105/58 (74) 94 Laboratory Tests Test 04/23/17 05:03 04/23/17 08:55 04/24/17 07:47 White Blood Count 11.7 TH/MM3 11.5 TH/MM3 8.6 TH/MM3 Red Blood Count 3.22 MIL/MM3 4.38 MIL/MM3 3.99 MIL/MM3 Hemoglobin 6.9 GM/DL 9.2 GM/DL 8.5 GM/DL Hematocrit 22.1 % 29.8 % 27.1 % Mean Corpuscular Volume 68.6 FL 68.1 FL 67.9 FL Mean Corpuscular Hemoglobin 21.4 PG 21.1 PG 21.3 PG Mean Corpuscular Hemoglobin Concent 31.2 % 31.0 % 31.4 % Red Cell Distribution Width 18.7 % 18.6 % 18.6 % Platelet Count 345 TH/MM3 392 TH/MM3 358 TH/MM3 Mean Platelet Volume 8.6 FL 8.3 FL 8.0 FL Neutrophils (%) (Auto) 77.8 % 78.5 % 77.3 % Lymphocytes (%) (Auto) 16.3 % 15.2 % 14.7 % Monocytes (%) (Auto) 3.3 % 3.5 % 4.0 % Eosinophils (%) (Auto) 2.0 % 2.4 % 3.6 % Basophils (%) (Auto) 0.6 % 0.4 % 0.4 % Neutrophils # (Auto) 9.1 TH/MM3 9.0 TH/MM3 6.6 TH/MM3 Lymphocytes # (Auto) 1.9 TH/MM3 1.7 TH/MM3 1.3 TH/MM3 Monocytes # (Auto) 0.4 TH/MM3 0.4 TH/MM3 0.3 TH/MM3 Eosinophils # (Auto) 0.2 TH/MM3 0.3 TH/MM3 0.3 TH/MM3 Basophils # (Auto) 0.1 TH/MM3 0.0 TH/MM3 0.0 TH/MM3 CBC Comment DIFF FINAL DIFF FINAL DIFF FINAL Differential Comment Laboratory Tests Test 04/23/17 05:03 04/24/17 07:47 Blood Urea Nitrogen 37 MG/DL 21 MG/DL Creatinine 2.04 MG/DL 1.28 MG/DL Random Glucose 66 MG/DL 104 MG/DL Total Protein 5.3 GM/DL 5.1 GM/DL Albumin 2.6 GM/DL 2.6 GM/DL Calcium Level 8.4 MG/DL 8.1 MG/DL Phosphorus Level 2.3 MG/DL 1.8 MG/DL Magnesium Level 1.7 MG/DL 1.5 MG/DL Alkaline Phosphatase 49 U/L 45 U/L Aspartate Amino Transf (AST/SGOT) 10 U/L 10 U/L Alanine Aminotransferase (ALT/SGPT) 13 U/L 10 U/L Total Bilirubin 0.3 MG/DL 0.2 MG/DL Sodium Level 145 MEQ/L 147 MEQ/L Potassium Level 4.1 MEQ/L 3.8 MEQ/L Chloride Level 119 MEQ/L 121 MEQ/L Carbon Dioxide Level 17.1 MEQ/L 18.5 MEQ/L Anion Gap 9 MEQ/L 8 MEQ/L Estimat Glomerular Filtration Rate 32 ML/MIN 55 ML/MIN Microbiology Date/Time Source Procedure Growth Status 04/23/17 10:32 Stool Stool Stool Occult Blood ([facility]EROME) - Final HEMOCCULT NEGATIVE Complete 04/21/17 21:50 Stool Stool Cryptosporidium Exam - Final NEGATIVE - NO CRYPTOSPORIDIUM ANTIGEN... Complete 04/21/17 21:50 Stool Stool Giardia Antigen (JEROME) - Final NEGATIVE - NO GIARDIA ANTIGEN DETECTE... Complete 04/21/17 21:50 Stool Stool - Final NO ENTERIC PATHOGENS DETECTED BY PCR... Complete Renal Ultrasound 04/21/17 0000 Signed Impressions: Service Date/Time: Friday, April 21, 2017 21:05 - CONCLUSION: 1. No acute findings. 3.4 cm cyst midpole left kidney. Dillan Armenta MD PHYSICAL EXAMINATION: GENERAL: Awake and alert and in no acute distress. HEENT: Extraocular movements grossly intact, pupils reactive to light. No icterus. OROPHARYNX: Moist mucosa without lesions. NECK: Supple without adenopathy. LUNGS: Clear breath sounds. HEART: Distant S1 and S2 without murmurs, rubs, or gallops. ABDOMEN: Bowel sounds present, nondistended, soft, nontender. EXTREMITIES: No clubbing, cyanosis, or edema. SKIN: No rash. NEUROLOGIC: No gross focal findings. PSYCHIATRIC: Calm and cooperative. IMPRESSION: 1. C. difficile colitis. Patient continues to have frequent bowel movements. Stools steel loose mucus. 2. Acute kidney disease. 3. Leukocytosis secondary to C. difficile. WBC lower. RECOMMENDATIONS: 1. Continue metronidazole. 2. Continue vancomycin. 3. Continue to monitor stool frequency. 4. Monitor clinical response. If improvement in Stools continue he can be treated with PO Vancomycin for 10 more days for the c. diff. Discussed with Dr Warner. Loc Bedolla MD Apr 24, 2017 11:07
[2017-04-24 12:00] VITALS: BP 137/83; PULSE 68; RESP 18; TEMP 97.8; O2SAT 100
[2017-04-24] MEDS: PRAVASTATIN SOD 40 MG TAB PO SCH (12:43)
[2017-04-24] MEDS: LISINOPRIL 10 MG TAB PO SCH (12:43)
[2017-04-24] MEDS: LACTOBACILLUS ACIDOPHILUS TAB PO SCH ×2 (12:44→16:48)
[2017-04-24] MEDS: ALLOPURINOL 300 MG TAB PO SCH (12:44)
--- NOTE | 2017-04-24 15:30 | HHI.PR ---
Subjective Remarks Patient complains he still having frequent bowel movements. Denies chest pain or shortness of breath. Denies abdominal pain. 5 BMP reported today Objective Vitals Vital Signs Date Time Temp Pulse Resp B/P (MAP) Pulse Ox O2 Delivery O2 Flow Rate FiO2 04/24/17 12:00 97.8 68 18 137/83 (101) 100 04/24/17 08:00 98.1 66 18 138/76 (96) 99 04/24/17 08:00 59 04/24/17 04:00 97.7 62 18 140/81 (100) 98 04/24/17 00:00 96.4 63 18 143/81 (101) 98 04/23/17 20:00 96.7 63 18 114/63 (80) 94 04/23/17 16:00 96.3 53 20 120/61 (80) 94 I/O 04/23/17 04/23/17 04/23/17 04/24/17 04/24/17 04/24/17 07:00 15:00 23:00 07:00 15:00 23:00 Intake Total 480 ml 200 ml 840 ml 650 ml Balance 480 ml 200 ml 840 ml 650 ml Intake Oral 480 ml 740 ml 650 ml IV Total 200 ml 100 ml # Voids 4 5 3 # Bowel Movements 4 1 4 5 1 Result Diagram: 04/24/17 0747 04/24/17 0747 Imaging Last Impressions Renal Ultrasound 04/21/17 0000 Signed Impressions: Service Date/Time: Friday, April 21, 2017 21:05 - CONCLUSION: 1. No acute findings. 3.4 cm cyst midpole left kidney. Dillan Armenta MD Objective Remarks GENERAL: Elderly white male in no acute distress. HEENT: PERRLA, EOMI. No scleral icterus or conjunctival pallor. No lid lag or facial droop. CARDIOVASCULAR: Regular rate and rhythm. No obvious murmurs to auscultation. No chest tenderness to palpation. RESPIRATORY: No obvious rhonchi or wheezing. Clear to auscultation. Breath sounds equal bilaterally. GASTROINTESTINAL: Abdomen soft, non-tender, nondistended. BS normal. MUSCULOSKELETAL: Extremities without clubbing, cyanosis, or edema. No obvious deformities. NEUROLOGICAL: Awake, alert and oriented x4. No focal neurologic deficits. Moving both upper and lower extremities spontaneously. Procedures None Medications and IVs Current Medications Medications (Trade) Dose Ordered Sig/Mony Route Start Time Stop Time Status Last Admin (NS Flush) 2 ml UNSCH PRN IV FLUSH 04/21/17 19:00 (NS Flush) 2 ml BID IV FLUSH 04/21/17 21:00 04/24/17 09:57 (Zofran Inj) 4 mg Q6H PRN IVP 04/21/17 19:00 (Tylenol) 650 mg Q6H PRN PO 04/21/17 19:00 ([place] 5-325 Mg) 1 tab Q4H PRN PO 04/21/17 19:00 (Morphine Inj) 2 mg Q3H PRN IV PUSH 04/21/17 19:00 (Reba-Colace) 1 tab BID PO 04/21/17 21:00 (Milk Of Magnesia Liq) 30 ml Q12H PRN PO 04/21/17 19:00 (Senokot) 17.2 mg Q12H PRN PO 04/21/17 19:00 (Dulcolax Supp) 10 mg DAILY PRN RECTAL 04/21/17 19:00 (Lactulose Liq) 30 ml DAILY PRN PO 04/21/17 19:00 (Lopressor) 25 mg BID PO 04/21/17 21:00 04/24/17 09:47 (Vancomycin 25 Mg/ml Liq) 250 mg QID PO 04/22/17 13:00 04/24/17 12:46 Metronidazole 100 ml @ 100 mls/hr Q8HR IV 04/22/17 14:00 04/24/17 12:45 (Rheumatrex) 5 mg We PO 04/24/17 09:00 04/24/17 09:56 (Lactinex) 1 tab TID PO 04/24/17 13:00 04/24/17 12:44 (Zyloprim) 300 mg DAILY PO 04/24/17 11:15 04/24/17 12:44 (Pravachol) 40 mg DAILY PO 04/24/17 11:15 04/24/17 12:43 (Prinivil) 30 mg DAILY PO 04/24/17 11:15 04/24/17 12:43 A/P Problem List: (1) Sepsis ICD Code: A41.9 - Sepsis, unspecified organism (2) Colitis ICD Code: K52.9 - Noninfective gastroenteritis and colitis, unspecified (3) LYNDSEY (acute kidney injury) ICD Code: N17.9 - Acute kidney failure, unspecified Assessment and Plan 1. Sepsis: HR 92, WBC 16, Source-likely colitis. Follow up cultures, continue IV Abx, IVF for hydration. 2. Colitis: reports ongoing diarrhea x2-3 months, eval for infectious etiology. CT Abd/Pelvis w/ no acute findings, images reviewed by me. Hemoccult negative on exam. Check Stool studies, C Diff. GI Consult if needed for further evaluation/possible Colonoscopy. 04/22 patient had C. difficile diarrhea. Patient is on oral Flagyl. Discontinue oral Flagyl and start on oral vancomycin and IV Flagyl. 04/23 ID consultation appreciated. Continue antibiotics as above. Potassium normal. 04/24 patient still having significant diarrhea. I will add Lactobacillus acidophilus. Continue oral vancomycin and IV Flagyl. 3. LYNDSEY: Creatinine 4.67, producing 1.10 on 10/08/16. Check UA, check Renal US , check protein/creat ratio, Consult Nephrology for further evaluation. Avoid NSAIDs/nephrotoxic agents. Monitor I/O. 04/22 creatinine trending down from 4.67-3.04. Continue IV fluids, renal ultrasound without hydronephrosis. Nephrology consulted recommendations pending. Continue to monitor BUN and creatinine, strict I's and O's. 04/24 suspect prerenal azotemia. Resolved after fluid demonstration. 4. Leukocytosis: Likely secondary to sepsis secondary to C. difficile diarrhea. WBC trending down. Continue to monitor CBC with differential. 04/24 leukocytosis resolved. Continue to monitor CBC with differential. 5. Hypokalemia: Likely secondary to GI loss and diarrhea. Replace orally and continue to monitor BMP. Potassium within normal range. 6. Hypotension: Likely secondary to hypovolemia. Patient status post 500 mils normal saline IV bolus yesterday night by night team. Patient still hypotensive in a.m. with a systolic blood pressure in the 90s. Repeatnormal saline IV bolus. Continue to monitor vital signs. 04/23 hypotension resolved. Continue to monitor vital signs. 7. DVT Prophylaxis: SCD/Teds. Patient refused chemoprophylaxis. 5. Social work for d/c planning as needed Discharge Planning Continue to monitor the medical floor. Discharge pending clinical improvement. Cassius García MD Apr 24, 2017 15:30
[2017-04-24 16:00] VITALS: BP 131/80; PULSE 68; RESP 18; TEMP 97.2; O2SAT 98
[2017-04-24 20:00] VITALS: BP 159/66; PULSE 62; RESP 18; TEMP 98.1; O2SAT 98
[2017-04-25] VITALS (7 sets, daily range): BP systolic 137–168; BP diastolic 66–79; PULSE 45–59; RESP 16–19; TEMP 96.9–97.9; O2SAT 97–99
[2017-04-25] MEDS: metroNIDAZOLE 500 MG INJ 100 ML IV SCH ×3 (05:38→20:35)
[2017-04-25] MEDS: ALLOPURINOL 300 MG TAB PO SCH (08:42)
[2017-04-25] MEDS: VANCOMYCIN 25 MG/ML SOLN 100 ML BOTTLE PO SCH ×4 (08:42→20:36)
[2017-04-25] MEDS: SODIUM CHLORIDE 0.9% FLUSH 10 ML FLUSH IV FLUSH SCH ×2 (08:42→20:36)
[2017-04-25] MEDS: LACTOBACILLUS ACIDOPHILUS TAB PO SCH ×3 (08:42→17:43)
[2017-04-25] MEDS: METOPROLOL TARTRATE 25 MG TAB PO SCH ×2 (08:42→20:37)
[2017-04-25] MEDS: LISINOPRIL 10 MG TAB PO SCH (08:42)
[2017-04-25] MEDS: PRAVASTATIN SOD 40 MG TAB PO SCH (08:42)
[2017-04-25] MEDS: DOCUSATE SODIUM 50 MG/SENNA 8.6 MG TAB PO SCH ×2 (08:43→20:36)
[2017-04-25 11:00] LABS: AUTOMATED NEUTROPHIL # 4.8 TH/MM3 (1.8-7.7); BASOPHIL % 0.7 % (0.0-2.0); EOSINOPHIL # 0.3 TH/MM3 (0-0.4); EOSINOPHIL % 4.3 % (0.0-4.0); HEMATOCRIT 25.4 % (39.0-51.0); HEMOGLOBIN 8.3 GM/DL (13.0-17.0); LYMPH % 18.1 % (9.0-44.0); LYMPHOCYTE # 1.2 TH/MM3 (1.0-4.8); MEAN CELL VOLUME 67.3 FL (80.0-100.0); MEAN CORPUSCULAR HEMOGLOBIN 21.9 PG (27.0-34.0); MEAN CORPUSCULAR HGB CONC 32.5 % (32.0-36.0); MEAN PLATELET VOLUME 8.1 FL (7.0-11.0); MONO % 5.6 % (0.0-8.0); MONOCYTE # 0.4 TH/MM3 (0-0.9); NEUT % 71.3 % (16.0-70.0); PLATELET COUNT 325 TH/MM3 (150-450); RED BLOOD COUNT 3.77 MIL/MM3 (4.50-5.90); RED CELL DISTRIBUTION WIDTH 19.2 % (11.6-17.2); WHITE BLOOD COUNT 6.7 TH/MM3 (4.0-11.0)
[2017-04-25 11:16] LABS: ALBUMIN 2.5 GM/DL (3.4-5.0); AST (GOT) 10 U/L (15-37); BICARBONATE 20.7 MEQ/L (21.0-32.0); BLOOD UREA NITROGEN 12 MG/DL (7-18); CALCIUM 8.2 MG/DL (8.5-10.1); CHLORIDE 121 MEQ/L (98-107); CREATININE 0.97 MG/DL (0.60-1.30); GLOMERULAR FILTRATION RATE 76 ML/MIN (>89); GLUCOSE,RANDOM 92 MG/DL (74-106); MAGNESIUM 1.3 MG/DL (1.5-2.5); SODIUM (NA) 149 MEQ/L (136-145)
[2017-04-25 11:20] LABS: ALKALINE PHOSPHATASE 41 U/L (45-117); ALT (GPT) 13 U/L (12-78); PHOSPHORUS 1.8 MG/DL (2.5-4.9); TOTAL BILIRUBIN ADULT 0.3 MG/DL (0.2-1.0)
[2017-04-25] MEDS: POTASSIUM PHOSPHATE/SODIUM PHOSPHATE 250 MG TAB PO SCH ×3 (12:20→22:13)
--- NOTE | 2017-04-25 15:35 | HHI.GIFU ---
Subjective Remarks Pt resting in bed. 4 soft brown mucusy stools so far today. (Chrerie Martínez) Objective Vitals I&O Vital Signs Date Time Temp Pulse Resp B/P (MAP) Pulse Ox O2 Delivery O2 Flow Rate FiO2 04/25/17 12:00 97.4 46 19 153/67 (95) 99 04/25/17 08:00 96.9 50 16 150/68 (95) 99 04/25/17 04:00 97.7 57 18 144/70 (94) 98 04/25/17 04:00 45 04/25/17 00:00 46 04/25/17 00:00 97.9 59 18 137/66 (89) 97 04/24/17 20:00 98.1 62 18 159/66 (97) 98 04/24/17 16:00 97.2 68 18 131/80 (97) 98 I/O 04/24/17 04/24/17 04/24/17 04/25/17 04/25/17 04/25/17 07:00 15:00 23:00 07:00 15:00 23:00 Intake Total 650 ml 580 ml 400 ml Balance 650 ml 580 ml 400 ml Intake Oral 650 ml 480 ml 400 ml IV Total 100 ml # Voids 3 3 5 # Bowel Movements 5 1 8 5 Laboratory Laboratory Tests Test 04/25/17 10:17 White Blood Count 6.7 Red Blood Count 3.77 Hemoglobin 8.3 Hematocrit 25.4 Mean Corpuscular Volume 67.3 Mean Corpuscular Hemoglobin 21.9 Mean Corpuscular Hemoglobin Concent 32.5 Red Cell Distribution Width 19.2 Platelet Count 325 Mean Platelet Volume 8.1 Neutrophils (%) (Auto) 71.3 Lymphocytes (%) (Auto) 18.1 Monocytes (%) (Auto) 5.6 Eosinophils (%) (Auto) 4.3 Basophils (%) (Auto) 0.7 Neutrophils # (Auto) 4.8 Lymphocytes # (Auto) 1.2 Monocytes # (Auto) 0.4 Eosinophils # (Auto) 0.3 Basophils # (Auto) 0.0 CBC Comment DIFF FINAL Differential Comment Blood Urea Nitrogen 12 Creatinine 0.97 Random Glucose 92 Total Protein 5.0 Albumin 2.5 Calcium Level 8.2 Phosphorus Level 1.8 Magnesium Level 1.3 Alkaline Phosphatase 41 Aspartate Amino Transf (AST/SGOT) 10 Alanine Aminotransferase (ALT/SGPT) 13 Total Bilirubin 0.3 Sodium Level 149 Potassium Level 3.8 Chloride Level 121 Carbon Dioxide Level 20.7 Anion Gap 7 Estimat Glomerular Filtration Rate 76 Date/Time Source Procedure Growth Status 04/24/17 13:00 Stool Stool Cryptosporidium Exam - Final NEGATIVE - NO CRYPTOSPORIDIUM ANTIGEN... Complete 04/24/17 13:00 Stool Stool Giardia Antigen ([facility]EROME) - Final NEGATIVE - NO GIARDIA ANTIGEN DETECTE... Complete Imaging Last Impressions Renal Ultrasound 04/21/17 0000 Signed Impressions: Service Date/Time: Friday, April 21, 2017 21:05 - CONCLUSION: 1. No acute findings. 3.4 cm cyst midpole left kidney. Dillan Armenta MD Physical Exam HEENT: PERRL; normocephalic; atraumatic; no jaundice. CHEST: unlabored CARDIAC: RRR ABDOMEN: Soft, nondistended, nontender; EXTREMITIES: No clubbing, cyanosis, or edema. SKIN: Normal; no rash; no jaundice. 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 (Cherrie Martínez) Assessment and Plan Plan ASSESSMENT - diarrhea - onset 3 months, pos c diff, ID on case - anemia, ?melena- hgb dropped from 11.2 to 6.9 in 2 days but on recheck is 9.9 this is not far from his baseline. he says he only has dark stool when he takes a certain pill. Denies areli bleeding. recent EGD and colonoscopy per pt and was told he needed capsule endoscopy 04/24/17 stool soft, more formed. Feeling better, wants to go home. denies black tarry stool or bleeding. HH relatively stable. WBC today is WNL 04/25/17 4 soft brown mucusy stools today per RN and pt. Denies black tarry stool or bleeding. HH relatively stable. started on lactinex PLAN - monitor stool count - capsule endoscopy as outpt - monitor HH - continue abx per ID - continue lactinex - supportive care pt seen by myself and Dr Isabel and this note is on his behalf (Cherrie Martínez) Plan Patient was seen and examined, agree with above-noted, seems to have less bowel movement than before, we will keep monitoring his stool frequency, continue current antibiotic, monitor H&H, capsule endoscopy as an outpatient (Ludivina Isabel MD) Cherrie Martínez Apr 25, 2017 15:35 Ludivina Isabel MD Apr 25, 2017 17:50
--- NOTE | 2017-04-25 16:41 | HHI.IDPN ---
Note Infectious Disease Note Patient continues to have watery stools. The stools have a green color. Patient reports mild pain in the mid abdomen Just above the umbilicus. He notes very mild cramping but not severe. He denies chills. He reports that he is afraid to eat because he will have diarrhea when he eats. 72-year-old white male who presented to the emergency department with watery diarrhea. The patient reports he has been having diarrhea for a few weeks now. He said that every time he eats, he would have to run to the bathroom. PAST MEDICAL HISTORY: Rheumatoid arthritis, hypercholesterolemia, gout, hypertension, tonsillectomy, cyst on the kidney. ALLERGIES: NO KNOWN DRUG ALLERGIES. MEDICATIONS: Current Medications Medications (Trade) Dose Ordered Sig/Mony Route PRN Reason Start Time Stop Time Status Last Admin Dose Admin Sodium Chloride (NS Flush) 2 ml UNSCH PRN IV FLUSH FLUSH AFTER USING IV ACCESS 04/21/17 19:00 Sodium Chloride (NS Flush) 2 ml BID IV FLUSH 04/21/17 21:00 04/25/17 08:42 Ondansetron HCl (Zofran Inj) 4 mg Q6H PRN IVP NAUSEA OR VOMITING 04/21/17 19:00 Acetaminophen (Tylenol) 650 mg Q6H PRN PO FEVER/PAIN SCALE 1 TO 2 04/21/17 19:00 Acetaminophen/ Hydrocodone Bitart ([place] 5-325 Mg) 1 tab Q4H PRN PO PAIN SCALE 3 TO 5 04/21/17 19:00 Morphine Sulfate (Morphine Inj) 2 mg Q3H PRN IV PUSH Pain 6-10 04/21/17 19:00 Senna/Docusate Sodium (Reba-Colace) 1 tab BID PO 04/21/17 21:00 Magnesium Hydroxide (Milk Of Magnesia Liq) 30 ml Q12H PRN PO Mild constipation 04/21/17 19:00 Sennosides (Senokot) 17.2 mg Q12H PRN PO Moderate constipation 04/21/17 19:00 Bisacodyl (Dulcolax Supp) 10 mg DAILY PRN RECTAL SEVERE CONSITIPATION 04/21/17 19:00 Lactulose (Lactulose Liq) 30 ml DAILY PRN PO SEVERE CONSITIPATION 04/21/17 19:00 Metoprolol Tartrate (Lopressor) 25 mg BID PO 04/21/17 21:00 04/25/17 08:42 Vancomycin HCl (Vancomycin 25 Mg/ml Liq) 250 mg QID PO 04/22/17 13:00 04/25/17 12:20 Metronidazole 100 ml @ 100 mls/hr Q8HR IV 04/22/17 14:00 04/25/17 13:51 Methotrexate (Rheumatrex) 5 mg We PO 04/24/17 09:00 04/24/17 09:56 Lactobacillus Acidophilus (Lactinex) 1 tab TID PO 04/24/17 13:00 04/25/17 12:19 Allopurinol (Zyloprim) 300 mg DAILY PO 04/24/17 11:15 04/25/17 08:42 Pravastatin Sodium (Pravachol) 40 mg DAILY PO 04/24/17 11:15 04/25/17 08:42 Lisinopril (Prinivil) 30 mg DAILY PO 04/24/17 11:15 04/25/17 08:42 Potassium Phos/ Sodium Phos (K-Phos Neutral) 250 mg Q6HR PO 04/25/17 12:00 04/25/17 12:20 SOCIAL HISTORY: The patient works as a security support analyst. Reports of alcohol use. No tobacco. No illicit drugs. OBJECTIVE:: Vital Signs Date Time Temp Pulse Resp B/P (MAP) Pulse Ox O2 Delivery O2 Flow Rate FiO2 04/25/17 16:00 97.4 49 18 141/74 (96) 98 04/25/17 12:00 97.4 46 19 153/67 (95) 99 04/25/17 08:00 96.9 50 16 150/68 (95) 99 04/25/17 04:00 97.7 57 18 144/70 (94) 98 04/25/17 04:00 45 04/25/17 00:00 46 04/25/17 00:00 97.9 59 18 137/66 (89) 97 04/24/17 20:00 98.1 62 18 159/66 (97) 98 Laboratory Tests Test 04/24/17 07:47 04/25/17 10:17 White Blood Count 8.6 TH/MM3 6.7 TH/MM3 Red Blood Count 3.99 MIL/MM3 3.77 MIL/MM3 Hemoglobin 8.5 GM/DL 8.3 GM/DL Hematocrit 27.1 % 25.4 % Mean Corpuscular Volume 67.9 FL 67.3 FL Mean Corpuscular Hemoglobin 21.3 PG 21.9 PG Mean Corpuscular Hemoglobin Concent 31.4 % 32.5 % Red Cell Distribution Width 18.6 % 19.2 % Platelet Count 358 TH/MM3 325 TH/MM3 Mean Platelet Volume 8.0 FL 8.1 FL Neutrophils (%) (Auto) 77.3 % 71.3 % Lymphocytes (%) (Auto) 14.7 % 18.1 % Monocytes (%) (Auto) 4.0 % 5.6 % Eosinophils (%) (Auto) 3.6 % 4.3 % Basophils (%) (Auto) 0.4 % 0.7 % Neutrophils # (Auto) 6.6 TH/MM3 4.8 TH/MM3 Lymphocytes # (Auto) 1.3 TH/MM3 1.2 TH/MM3 Monocytes # (Auto) 0.3 TH/MM3 0.4 TH/MM3 Eosinophils # (Auto) 0.3 TH/MM3 0.3 TH/MM3 Basophils # (Auto) 0.0 TH/MM3 0.0 TH/MM3 CBC Comment DIFF FINAL DIFF FINAL Differential Comment Laboratory Tests Test 04/24/17 07:47 04/25/17 10:17 Blood Urea Nitrogen 21 MG/DL 12 MG/DL Creatinine 1.28 MG/DL 0.97 MG/DL Random Glucose 104 MG/DL 92 MG/DL Total Protein 5.1 GM/DL 5.0 GM/DL Albumin 2.6 GM/DL 2.5 GM/DL Calcium Level 8.1 MG/DL 8.2 MG/DL Phosphorus Level 1.8 MG/DL 1.8 MG/DL Magnesium Level 1.5 MG/DL 1.3 MG/DL Alkaline Phosphatase 45 U/L 41 U/L Aspartate Amino Transf (AST/SGOT) 10 U/L 10 U/L Alanine Aminotransferase (ALT/SGPT) 10 U/L 13 U/L Total Bilirubin 0.2 MG/DL 0.3 MG/DL Sodium Level 147 MEQ/L 149 MEQ/L Potassium Level 3.8 MEQ/L 3.8 MEQ/L Chloride Level 121 MEQ/L 121 MEQ/L Carbon Dioxide Level 18.5 MEQ/L 20.7 MEQ/L Anion Gap 8 MEQ/L 7 MEQ/L Estimat Glomerular Filtration Rate 55 ML/MIN 76 ML/MIN Microbiology Date/Time Source Procedure Growth Status 04/24/17 13:00 Stool Stool Cryptosporidium Exam - Final NEGATIVE - NO CRYPTOSPORIDIUM ANTIGEN... Complete 04/24/17 13:00 Stool Stool Giardia Antigen ([facility]EROME) - Final NEGATIVE - NO GIARDIA ANTIGEN DETECTE... Complete 04/23/17 10:32 Stool Stool Stool Occult Blood (JEROME) - Final HEMOCCULT NEGATIVE Complete Microbiology Date/Time Source Procedure Growth Status 04/23/17 10:32 Stool Stool Stool Occult Blood (JEROME) - Final HEMOCCULT NEGATIVE Complete 04/21/17 21:50 Stool Stool Cryptosporidium Exam - Final NEGATIVE - NO CRYPTOSPORIDIUM ANTIGEN... Complete 04/21/17 21:50 Stool Stool Giardia Antigen (JEROME) - Final NEGATIVE - NO GIARDIA ANTIGEN DETECTE... Complete 04/21/17 21:50 Stool Stool - Final NO ENTERIC PATHOGENS DETECTED BY PCR... Complete Renal Ultrasound 04/21/17 0000 Signed Impressions: Service Date/Time: Friday, April 21, 2017 21:05 - CONCLUSION: 1. No acute findings. 3.4 cm cyst midpole left kidney. Dillan Armenta MD PHYSICAL EXAMINATION: GENERAL: Awake and alert. No acute distress. HEENT: Extraocular movements grossly intact, pupils reactive to light. No icterus. OROPHARYNX: Moist mucosa without lesions. NECK: Supple without adenopathy. LUNGS: Breath sounds clear. HEART: Distant S1 and S2 without murmurs, rubs, or gallops. ABDOMEN: Bowel sounds present, nondistended, soft, nontender. EXTREMITIES: No clubbing, cyanosis, or edema. SKIN: No rash. NEUROLOGIC: No gross focal findings. PSYCHIATRIC: Calm and cooperative. IMPRESSION: 1. C. difficile colitis. Patient continues to have frequent bowel movements. Stools mucus to watery. Patient slow to respond to antibiotics. He has hypervirulent strain. 2. Acute kidney disease. Improving. 3. Leukocytosis secondary to C. difficile. WBC down to normal. RECOMMENDATIONS: 1. Continue metronidazole. 2. Continue vancomycin. 3. Continue to monitor stool frequency. 4. Monitor clinical response. Loc Bedolla MD Apr 25, 2017 16:41
--- NOTE | 2017-04-25 16:51 | HHI.PR ---
Subjective Remarks states he still has frequent BM's Denies abdominal pain, nausea or vomiting States that every time he eats he has diarrhea. Afebrile Objective Vitals Vital Signs Date Time Temp Pulse Resp B/P (MAP) Pulse Ox O2 Delivery O2 Flow Rate FiO2 04/25/17 16:00 97.4 49 18 141/74 (96) 98 04/25/17 12:00 97.4 46 19 153/67 (95) 99 04/25/17 08:00 96.9 50 16 150/68 (95) 99 04/25/17 04:00 97.7 57 18 144/70 (94) 98 04/25/17 04:00 45 04/25/17 00:00 46 04/25/17 00:00 97.9 59 18 137/66 (89) 97 04/24/17 20:00 98.1 62 18 159/66 (97) 98 I/O 04/24/17 04/24/17 04/24/17 04/25/17 04/25/17 04/25/17 07:00 15:00 23:00 07:00 15:00 23:00 Intake Total 650 ml 580 ml 400 ml 100 ml Balance 650 ml 580 ml 400 ml 100 ml Intake Oral 650 ml 480 ml 400 ml IV Total 100 ml 100 ml # Voids 3 3 5 # Bowel Movements 5 1 8 5 Result Diagram: 04/25/17 1017 04/25/17 1017 Imaging Last Impressions Renal Ultrasound 04/21/17 0000 Signed Impressions: Service Date/Time: Friday, April 21, 2017 21:05 - CONCLUSION: 1. No acute findings. 3.4 cm cyst midpole left kidney. Dillan Armenta MD Objective Remarks GENERAL: Elderly white male in no acute distress. HEENT: PERRLA, EOMI. No scleral icterus or conjunctival pallor. No lid lag or facial droop. CARDIOVASCULAR: Regular rate and rhythm. No obvious murmurs to auscultation. No chest tenderness to palpation. RESPIRATORY: No obvious rhonchi or wheezing. Clear to auscultation. Breath sounds equal bilaterally. GASTROINTESTINAL: Abdomen soft, non-tender, nondistended. BS normal. MUSCULOSKELETAL: Extremities without clubbing, cyanosis, or edema. No obvious deformities. NEUROLOGICAL: Awake, alert and oriented x4. No focal neurologic deficits. Moving both upper and lower extremities spontaneously. Procedures None Medications and IVs Current Medications Medications (Trade) Dose Ordered Sig/Mony Route Start Time Stop Time Status Last Admin (NS Flush) 2 ml UNSCH PRN IV FLUSH 04/21/17 19:00 (NS Flush) 2 ml BID IV FLUSH 04/21/17 21:00 04/25/17 08:42 (Zofran Inj) 4 mg Q6H PRN IVP 04/21/17 19:00 (Tylenol) 650 mg Q6H PRN PO 04/21/17 19:00 ([place] 5-325 Mg) 1 tab Q4H PRN PO 04/21/17 19:00 (Morphine Inj) 2 mg Q3H PRN IV PUSH 04/21/17 19:00 (Reba-Colace) 1 tab BID PO 04/21/17 21:00 (Milk Of Magnesia Liq) 30 ml Q12H PRN PO 04/21/17 19:00 (Senokot) 17.2 mg Q12H PRN PO 04/21/17 19:00 (Dulcolax Supp) 10 mg DAILY PRN RECTAL 04/21/17 19:00 (Lactulose Liq) 30 ml DAILY PRN PO 04/21/17 19:00 (Lopressor) 25 mg BID PO 04/21/17 21:00 04/25/17 08:42 (Vancomycin 25 Mg/ml Liq) 250 mg QID PO 04/22/17 13:00 04/25/17 12:20 Metronidazole 100 ml @ 100 mls/hr Q8HR IV 04/22/17 14:00 04/25/17 13:51 (Rheumatrex) 5 mg We PO 04/24/17 09:00 04/24/17 09:56 (Lactinex) 1 tab TID PO 04/24/17 13:00 04/25/17 12:19 (Zyloprim) 300 mg DAILY PO 04/24/17 11:15 04/25/17 08:42 (Pravachol) 40 mg DAILY PO 04/24/17 11:15 04/25/17 08:42 (Prinivil) 30 mg DAILY PO 04/24/17 11:15 04/25/17 08:42 (K-Phos Neutral) 250 mg Q6HR PO 04/25/17 12:00 04/25/17 12:20 A/P Problem List: (1) Sepsis ICD Code: A41.9 - Sepsis, unspecified organism Status: Resolved (2) Colitis ICD Code: K52.9 - Noninfective gastroenteritis and colitis, unspecified Status: Acute (3) LYNDSEY (acute kidney injury) ICD Code: N17.9 - Acute kidney failure, unspecified Status: Resolved (4) Hypernatremia ICD Code: E87.0 - Hyperosmolality and hypernatremia Status: Acute (5) Hypotension ICD Code: I95.9 - Hypotension, unspecified Status: Resolved (6) Metabolic acidosis ICD Code: E87.2 - Acidosis (7) Dehydration ICD Code: E86.0 - Dehydration Assessment and Plan 1. Sepsis: HR 92, WBC 16, Source-likely colitis. Follow up cultures, continue IV Abx, IVF for hydration. 2. Colitis: reports ongoing diarrhea x2-3 months, eval for infectious etiology. CT Abd/Pelvis w/ no acute findings, images reviewed by me. Hemoccult negative on exam. Check Stool studies, C Diff. GI Consult if needed for further evaluation/possible Colonoscopy. 04/22 patient had C. difficile diarrhea. Patient is on oral Flagyl. Discontinue oral Flagyl and start on oral vancomycin and IV Flagyl. 04/23 ID consultation appreciated. Continue antibiotics as above. Potassium normal. 04/24 patient still having significant diarrhea. I will add Lactobacillus acidophilus. Continue oral vancomycin and IV Flagyl. 04/25 Patient still having frequent watery stools. continue PO Vancomycin and IV Flagyl. 3. LYNDSEY: Creatinine 4.67, producing 1.10 on 10/08/16. Check UA, check Renal US , check protein/creat ratio, Consult Nephrology for further evaluation. Avoid NSAIDs/nephrotoxic agents. Monitor I/O. 04/22 creatinine trending down from 4.67-3.04. Continue IV fluids, renal ultrasound without hydronephrosis. Nephrology consulted recommendations pending. Continue to monitor BUN and creatinine, strict I's and O's. 04/24 suspect prerenal azotemia. Resolving after fluid administration. 04/25 Creatinine contiues to improve. 4. Leukocytosis: Likely secondary to sepsis secondary to C. difficile diarrhea. WBC trending down. Continue to monitor CBC with differential. 04/24 leukocytosis resolved. Continue to monitor CBC with differential. 5. Hypokalemia: Likely secondary to GI loss and diarrhea. Replace orally and continue to monitor BMP. Potassium within normal range. 6. Hypotension: Likely secondary to hypovolemia. Patient status post 500 mils normal saline IV bolus yesterday night by night team. Patient still hypotensive in a.m. with a systolic blood pressure in the 90s. Repeatnormal saline IV bolus. Continue to monitor vital signs. 04/23 hypotension resolved. Continue to monitor vital signs. 7. Metabolic acidosis Liekly due to diarrhea. and possibly hyperchloremic acidosis. Will start on hypotonic saline, monitor BMP. 8. Hypernatremia Due to dehydration - Worsening - Will start on 02/28 ns. Monitor BMP. 7. DVT Prophylaxis: SCD/Teds. NO chemoprophylaxis given h/o anemia, GI bleed. 5. Social work for d/c planning as needed Discharge Planning Continue to monitor the medical floor. Discharge pending clinical improvement. Problem Qualifiers (1) Hypotension: Qualified Codes: I95.9 - Hypotension, unspecified Cassius García MD Apr 25, 2017 16:51
[2017-04-25] MEDS: MAGNESIUM SULFATE 1 GM PREMIX 100 ML IV SCH ×2 (17:43→20:34)
[2017-04-25] MEDS: POTASSIUM CHLORIDE INJ 20 MEQ, SODIUM CHLORIDE 23.4% INJ 38.5 MEQ in WATER STERILE FOR ... IV SCH (17:44)
[2017-04-26] VITALS (8 sets, daily range): BP systolic 136–161; BP diastolic 66–78; PULSE 44–65; RESP 18–20; TEMP 97.4–98.5; O2SAT 97–99
[2017-04-26] MEDS: POTASSIUM PHOSPHATE/SODIUM PHOSPHATE 250 MG TAB PO SCH ×3 (05:39→17:45)
[2017-04-26] MEDS: metroNIDAZOLE 500 MG INJ 100 ML IV SCH ×2 (05:40→12:28)
[2017-04-26] MEDS: POTASSIUM CHLORIDE INJ 20 MEQ, SODIUM CHLORIDE 23.4% INJ 38.5 MEQ in WATER STERILE FOR ... IV SCH ×2 (05:40→20:50)
[2017-04-26] MEDS: DOCUSATE SODIUM 50 MG/SENNA 8.6 MG TAB PO SCH ×2 (09:00→20:50)
[2017-04-26] MEDS: SODIUM CHLORIDE 0.9% FLUSH 10 ML FLUSH IV FLUSH SCH ×2 (09:00→20:50)
[2017-04-26] MEDS: LACTOBACILLUS ACIDOPHILUS TAB PO SCH ×3 (09:22→17:45)
[2017-04-26] MEDS: PRAVASTATIN SOD 40 MG TAB PO SCH (09:22)
[2017-04-26] MEDS: METOPROLOL TARTRATE 25 MG TAB PO SCH ×2 (09:22→20:50)
[2017-04-26] MEDS: LISINOPRIL 10 MG TAB PO SCH (09:22)
[2017-04-26] MEDS: ALLOPURINOL 300 MG TAB PO SCH (09:22)
[2017-04-26] MEDS: VANCOMYCIN 25 MG/ML SOLN 100 ML BOTTLE PO SCH ×2 (09:23→12:28)
--- NOTE | 2017-04-26 12:41 | HHI.GIFU ---
Subjective Remarks Pt resting in bed in NAD. Says he has had 8 BM. Unclear how big they were. (Cherrie Martínez) Objective Vitals I&O Vital Signs Date Time Temp Pulse Resp B/P (MAP) Pulse Ox O2 Delivery O2 Flow Rate FiO2 04/26/17 12:00 97.9 50 20 141/68 (92) 99 04/26/17 08:00 97.4 53 20 138/78 (98) 97 04/26/17 04:15 44 04/26/17 04:00 98.0 65 18 152/73 (99) 97 04/26/17 00:14 48 04/26/17 00:00 98.5 52 18 161/72 (101) 98 04/25/17 20:25 50 04/25/17 20:00 97.3 56 16 168/79 (108) 97 04/25/17 16:00 97.4 49 18 141/74 (96) 98 I/O 04/25/17 04/25/17 04/25/17 04/26/17 04/26/17 04/26/17 07:00 15:00 23:00 07:00 15:00 23:00 Intake Total 400 ml 100 ml 660 ml 360 ml Output Total 0 ml Balance 400 ml 100 ml 660 ml 360 ml Intake Oral 400 ml 360 ml 360 ml IV Total 100 ml 300 ml Output Urine Total 0 ml # Voids 5 3 # Bowel Movements 5 4 1 Laboratory Date/Time Source Procedure Growth Status 04/24/17 13:00 Stool Stool Cryptosporidium Exam - Final NEGATIVE - NO CRYPTOSPORIDIUM ANTIGEN... Complete 04/24/17 13:00 Stool Stool Giardia Antigen ([facility]OME) - Final NEGATIVE - NO GIARDIA ANTIGEN DETECTE... Complete Physical Exam HEENT: PERRL; normocephalic; atraumatic; no jaundice. CHEST: unlabored CARDIAC: RRR ABDOMEN: Soft, nondistended, nontender; EXTREMITIES: No clubbing, cyanosis, or edema. SKIN: Normal; no rash; no jaundice. RECOATER: No focal deficits; alert and oriented times three. (Cherrie Martínez) Assessment and Plan Plan ASSESSMENT - diarrhea - onset 3 months, pos c diff, ID on case - anemia, ?melena- hgb dropped from 11.2 to 6.9 in 2 days but on recheck is 9.9 this is not far from his baseline. he says he only has dark stool when he takes a certain pill. Denies areli bleeding. recent EGD and colonoscopy per pt and was told he needed capsule endoscopy 04/24/17 stool soft, more formed. Feeling better, wants to go home. denies black tarry stool or bleeding. HH relatively stable. WBC today is WNL 04/25/17 4 soft brown mucusy stools today per RN and pt. Denies black tarry stool or bleeding. HH relatively stable. started on lactinex 04/26/17 today pt claims 8 BM. wants to go home. PLAN - d/w ID, switch from Flagyl to Dificid - monitor stool count - capsule endoscopy as outpt - monitor HH - continue lactinex - supportive care pt seen by myself and Dr Isabel and this note is on his behalf (Cherrie Martínez) Plan Patient was seen and examined, agree with above note, patient was started on Dificid we will see how he responds to it, not responding to vancomycin or Flagyl (Ludivina Isabel MD) Cherire Martínez Apr 26, 2017 12:41 Ludivina Isabel MD Apr 26, 2017 17:35
--- NOTE | 2017-04-26 13:15 | HHI.IDPN ---
Note Infectious Disease Note Patient continues to have watery stools. Notes that he had 10 bowel movements so far today. Does not want to eat because he thinks it is inducing bowel movements. No significant abdominal pain. Afebrile. Now drinking only water. 72-year-old white male who presented to the emergency department with watery diarrhea. The patient reports he has been having diarrhea for a few weeks now. He said that every time he eats, he would have to run to the bathroom. PAST MEDICAL HISTORY: Rheumatoid arthritis, hypercholesterolemia, gout, hypertension, tonsillectomy, cyst on the kidney. ALLERGIES: NO KNOWN DRUG ALLERGIES. MEDICATIONS: Current Medications Medications (Trade) Dose Ordered Sig/Mony Route PRN Reason Start Time Stop Time Status Last Admin Dose Admin Sodium Chloride (NS Flush) 2 ml UNSCH PRN IV FLUSH FLUSH AFTER USING IV ACCESS 04/21/17 19:00 Sodium Chloride (NS Flush) 2 ml BID IV FLUSH 04/21/17 21:00 04/25/17 08:42 Ondansetron HCl (Zofran Inj) 4 mg Q6H PRN IVP NAUSEA OR VOMITING 04/21/17 19:00 Acetaminophen (Tylenol) 650 mg Q6H PRN PO FEVER/PAIN SCALE 1 TO 2 04/21/17 19:00 Acetaminophen/ Hydrocodone Bitart ([place] 5-325 Mg) 1 tab Q4H PRN PO PAIN SCALE 3 TO 5 04/21/17 19:00 Morphine Sulfate (Morphine Inj) 2 mg Q3H PRN IV PUSH Pain 6-10 04/21/17 19:00 Senna/Docusate Sodium (Reba-Colace) 1 tab BID PO 04/21/17 21:00 Magnesium Hydroxide (Milk Of Magnesia Liq) 30 ml Q12H PRN PO Mild constipation 04/21/17 19:00 Sennosides (Senokot) 17.2 mg Q12H PRN PO Moderate constipation 04/21/17 19:00 Bisacodyl (Dulcolax Supp) 10 mg DAILY PRN RECTAL SEVERE CONSITIPATION 04/21/17 19:00 Lactulose (Lactulose Liq) 30 ml DAILY PRN PO SEVERE CONSITIPATION 04/21/17 19:00 Metoprolol Tartrate (Lopressor) 25 mg BID PO 04/21/17 21:00 04/26/17 09:22 Vancomycin HCl (Vancomycin 25 Mg/ml Liq) 250 mg QID PO 04/22/17 13:00 04/26/17 12:28 Metronidazole 100 ml @ 100 mls/hr Q8HR IV 04/22/17 14:00 04/26/17 12:28 Methotrexate (Rheumatrex) 5 mg We PO 04/24/17 09:00 04/24/17 09:56 Lactobacillus Acidophilus (Lactinex) 1 tab TID PO 04/24/17 13:00 04/26/17 12:27 Allopurinol (Zyloprim) 300 mg DAILY PO 04/24/17 11:15 04/26/17 09:22 Pravastatin Sodium (Pravachol) 40 mg DAILY PO 04/24/17 11:15 04/26/17 09:22 Lisinopril (Prinivil) 30 mg DAILY PO 04/24/17 11:15 04/26/17 09:22 Potassium Phos/ Sodium Phos (K-Phos Neutral) 250 mg Q6HR PO 04/25/17 12:00 04/26/17 12:28 Potassium Chloride 20 meq/ Sodium Chloride 38.5 meq/Sterile Water 1,019.625 ml @ 84 mls/hr Q12H9M IV 04/25/17 18:00 04/26/17 05:40 SOCIAL HISTORY: The patient works as a security system technician. Reports of alcohol use. No tobacco. No illicit drugs. OBJECTIVE:: Vital Signs Date Time Temp Pulse Resp B/P (MAP) Pulse Ox O2 Delivery O2 Flow Rate FiO2 04/26/17 12:00 97.9 50 20 141/68 (92) 99 04/26/17 08:00 97.4 53 20 138/78 (98) 97 04/26/17 04:15 44 04/26/17 04:00 98.0 65 18 152/73 (99) 97 04/26/17 00:14 48 04/26/17 00:00 98.5 52 18 161/72 (101) 98 04/25/17 20:25 50 04/25/17 20:00 97.3 56 16 168/79 (108) 97 04/25/17 16:00 97.4 49 18 141/74 (96) 98 Laboratory Tests Test 04/25/17 10:17 White Blood Count 6.7 TH/MM3 Red Blood Count 3.77 MIL/MM3 Hemoglobin 8.3 GM/DL Hematocrit 25.4 % Mean Corpuscular Volume 67.3 FL Mean Corpuscular Hemoglobin 21.9 PG Mean Corpuscular Hemoglobin Concent 32.5 % Red Cell Distribution Width 19.2 % Platelet Count 325 TH/MM3 Mean Platelet Volume 8.1 FL Neutrophils (%) (Auto) 71.3 % Lymphocytes (%) (Auto) 18.1 % Monocytes (%) (Auto) 5.6 % Eosinophils (%) (Auto) 4.3 % Basophils (%) (Auto) 0.7 % Neutrophils # (Auto) 4.8 TH/MM3 Lymphocytes # (Auto) 1.2 TH/MM3 Monocytes # (Auto) 0.4 TH/MM3 Eosinophils # (Auto) 0.3 TH/MM3 Basophils # (Auto) 0.0 TH/MM3 CBC Comment DIFF FINAL Differential Comment Laboratory Tests Test 04/25/17 10:17 Blood Urea Nitrogen 12 MG/DL Creatinine 0.97 MG/DL Random Glucose 92 MG/DL Total Protein 5.0 GM/DL Albumin 2.5 GM/DL Calcium Level 8.2 MG/DL Phosphorus Level 1.8 MG/DL Magnesium Level 1.3 MG/DL Alkaline Phosphatase 41 U/L Aspartate Amino Transf (AST/SGOT) 10 U/L Alanine Aminotransferase (ALT/SGPT) 13 U/L Total Bilirubin 0.3 MG/DL Sodium Level 149 MEQ/L Potassium Level 3.8 MEQ/L Chloride Level 121 MEQ/L Carbon Dioxide Level 20.7 MEQ/L Anion Gap 7 MEQ/L Estimat Glomerular Filtration Rate 76 ML/MIN Microbiology Date/Time Source Procedure Growth Status 04/24/17 13:00 Stool Stool Cryptosporidium Exam - Final NEGATIVE - NO CRYPTOSPORIDIUM ANTIGEN... Complete 04/24/17 13:00 Stool Stool Giardia Antigen ([facility]EROME) - Final NEGATIVE - NO GIARDIA ANTIGEN DETECTE... Complete Renal Ultrasound 04/21/17 0000 Signed Impressions: Service Date/Time: Friday, April 21, 2017 21:05 - CONCLUSION: 1. No acute findings. 3.4 cm cyst midpole left kidney. Dillan Armenta MD PHYSICAL EXAMINATION: GENERAL: Awake and alert. No acute distress. HEENT: Extraocular movements grossly intact, pupils reactive to light. No icterus. OROPHARYNX: Moist mucosa without lesions. NECK: Supple without adenopathy. LUNGS: Breath sounds clear. HEART: Distant S1 and S2 without murmurs, rubs, or gallops. ABDOMEN: Bowel sounds hyperactive. Nondistended, soft, nontender. EXTREMITIES: No clubbing, cyanosis, or edema. SKIN: No rash. NEUROLOGIC: No gross focal findings. PSYCHIATRIC: Calm and cooperative. IMPRESSION: 1. C. difficile colitis. Patient continues to have frequent bowel movements. Does not appear to be responding to current antibiotic treatment. He has hypervirulent strain. 2. Acute kidney disease. Improving. 3. Leukocytosis secondary to C. difficile. WBC down to normal. RECOMMENDATIONS: 1. Stop Metronidazole. Not responding. 2. Stop p.o. Vancomycin. 3. Begin Dificid. 4. Continue to monitor stool frequency. 5. Monitor clinical response. Loc Bedolla MD Apr 26, 2017 13:15
[2017-04-26 13:54] LABS: HEMATOCRIT 30.1 % (39.0-51.0); HEMOGLOBIN 9.6 GM/DL (13.0-17.0); MEAN CELL VOLUME 67.2 FL (80.0-100.0); MEAN CORPUSCULAR HEMOGLOBIN 21.4 PG (27.0-34.0); MEAN CORPUSCULAR HGB CONC 31.9 % (32.0-36.0); MEAN PLATELET VOLUME 8.2 FL (7.0-11.0); PLATELET COUNT 377 TH/MM3 (150-450); RED BLOOD COUNT 4.48 MIL/MM3 (4.50-5.90); RED CELL DISTRIBUTION WIDTH 18.8 % (11.6-17.2); WHITE BLOOD COUNT 10.2 TH/MM3 (4.0-11.0)
--- NOTE | 2017-04-26 13:58 | HHI.PR ---
Subjective Remarks The patient states he still having frequent liquid bowel movements. Denies fevers, chills, denies abdominal pain, nausea vomiting. Objective Vitals Vital Signs Date Time Temp Pulse Resp B/P (MAP) Pulse Ox O2 Delivery O2 Flow Rate FiO2 04/26/17 12:00 97.9 50 20 141/68 (92) 99 04/26/17 08:00 97.4 53 20 138/78 (98) 97 04/26/17 04:15 44 04/26/17 04:00 98.0 65 18 152/73 (99) 97 04/26/17 00:14 48 04/26/17 00:00 98.5 52 18 161/72 (101) 98 04/25/17 20:25 50 04/25/17 20:00 97.3 56 16 168/79 (108) 97 04/25/17 16:00 97.4 49 18 141/74 (96) 98 I/O 04/25/17 04/25/17 04/25/17 04/26/17 04/26/17 04/26/17 07:00 15:00 23:00 07:00 15:00 23:00 Intake Total 400 ml 100 ml 660 ml 360 ml Output Total 0 ml Balance 400 ml 100 ml 660 ml 360 ml Intake Oral 400 ml 360 ml 360 ml IV Total 100 ml 300 ml Output Urine Total 0 ml # Voids 5 3 # Bowel Movements 5 4 1 Result Diagram: 04/26/17 1315 04/25/17 1017 Imaging Last Impressions Renal Ultrasound 04/21/17 0000 Signed Impressions: Service Date/Time: Friday, April 21, 2017 21:05 - CONCLUSION: 1. No acute findings. 3.4 cm cyst midpole left kidney. Dillan Armenta MD Objective Remarks GENERAL: Elderly white male in no acute distress. HEENT: PERRLA, EOMI. No scleral icterus or conjunctival pallor. No lid lag or facial droop. CARDIOVASCULAR: Regular rate and rhythm. No obvious murmurs to auscultation. No chest tenderness to palpation. RESPIRATORY: No obvious rhonchi or wheezing. Clear to auscultation. Breath sounds equal bilaterally. GASTROINTESTINAL: Abdomen soft, non-tender, nondistended. BS normal. MUSCULOSKELETAL: Extremities without clubbing, cyanosis, or edema. No obvious deformities. NEUROLOGICAL: Awake, alert and oriented x4. No focal neurologic deficits. Moving both upper and lower extremities spontaneously. Procedures None Medications and IVs Current Medications Medications (Trade) Dose Ordered Sig/Mony Route Start Time Stop Time Status Last Admin (NS Flush) 2 ml UNSCH PRN IV FLUSH 04/21/17 19:00 (NS Flush) 2 ml BID IV FLUSH 04/21/17 21:00 04/25/17 08:42 (Zofran Inj) 4 mg Q6H PRN IVP 04/21/17 19:00 (Tylenol) 650 mg Q6H PRN PO 04/21/17 19:00 ([place] 5-325 Mg) 1 tab Q4H PRN PO 04/21/17 19:00 (Morphine Inj) 2 mg Q3H PRN IV PUSH 04/21/17 19:00 (Reba-Colace) 1 tab BID PO 04/21/17 21:00 (Milk Of Magnesia Liq) 30 ml Q12H PRN PO 04/21/17 19:00 (Senokot) 17.2 mg Q12H PRN PO 04/21/17 19:00 (Dulcolax Supp) 10 mg DAILY PRN RECTAL 04/21/17 19:00 (Lactulose Liq) 30 ml DAILY PRN PO 04/21/17 19:00 (Lopressor) 25 mg BID PO 04/21/17 21:00 04/26/17 09:22 (Rheumatrex) 5 mg We PO 04/24/17 09:00 04/24/17 09:56 (Lactinex) 1 tab TID PO 04/24/17 13:00 04/26/17 12:27 (Zyloprim) 300 mg DAILY PO 04/24/17 11:15 04/26/17 09:22 (Pravachol) 40 mg DAILY PO 04/24/17 11:15 04/26/17 09:22 (Prinivil) 30 mg DAILY PO 04/24/17 11:15 04/26/17 09:22 (K-Phos Neutral) 250 mg Q6HR PO 04/25/17 12:00 04/26/17 12:28 Potassium Chloride 20 meq/ Sodium Chloride 38.5 meq/Sterile Water 1,019.625 ml @ 84 mls/hr Q12H9M IV 04/25/17 18:00 04/26/17 05:40 (Dificid) 200 mg BID PO 04/26/17 14:00 05/06/17 13:59 A/P Problem List: (1) Sepsis ICD Code: A41.9 - Sepsis, unspecified organism Status: Resolved (2) Colitis ICD Code: K52.9 - Noninfective gastroenteritis and colitis, unspecified Status: Acute (3) LYNDSEY (acute kidney injury) ICD Code: N17.9 - Acute kidney failure, unspecified Status: Resolved (4) Hypernatremia ICD Code: E87.0 - Hyperosmolality and hypernatremia Status: Acute (5) Hypotension ICD Code: I95.9 - Hypotension, unspecified Status: Resolved (6) Metabolic acidosis ICD Code: E87.2 - Acidosis (7) Dehydration ICD Code: E86.0 - Dehydration Assessment and Plan 1. Sepsis: HR 92, WBC 16, Source-likely colitis. Follow up cultures, continue IV Abx, IVF for hydration. 2. C. difficile diarrhea. reports ongoing diarrhea x2-3 months, eval for infectious etiology. CT Abd/Pelvis w/ no acute findings, images reviewed by me. Hemoccult negative on exam. Check Stool studies, C Diff. GI Consult if needed for further evaluation/possible Colonoscopy. 04/22 patient had C. difficile diarrhea. Patient is on oral Flagyl. Discontinue oral Flagyl and start on oral vancomycin and IV Flagyl. 04/23 ID consultation appreciated. Continue antibiotics as above. Potassium normal. 04/24 patient still having significant diarrhea. I will add Lactobacillus acidophilus. Continue oral vancomycin and IV Flagyl. 04/25 Patient still having frequent watery stools. continue PO Vancomycin and IV Flagyl. 04/26 discussed the case with Dr. Titi nugent from infectious disease. DC p.o. vancomycin and IV Flagyl and start the patient on Dificid. 3. LYNDSEY: Creatinine 4.67, producing 1.10 on 10/08/16. Check UA, check Renal US , check protein/creat ratio, Consult Nephrology for further evaluation. Avoid NSAIDs/nephrotoxic agents. Monitor I/O. 04/22 creatinine trending down from 4.67-3.04. Continue IV fluids, renal ultrasound without hydronephrosis. Nephrology consulted recommendations pending. Continue to monitor BUN and creatinine, strict I's and O's. 04/24 suspect prerenal azotemia. Resolving after fluid administration. Resolved after IV fluid administration. 4. Leukocytosis: Likely secondary to sepsis secondary to C. difficile diarrhea. WBC trending down. Continue to monitor CBC with differential. leukocytosis resolved. Continue to monitor CBC with differential. 5. Hypokalemia: Likely secondary to GI loss and diarrhea. Replace orally and continue to monitor BMP. Potassium within normal range. 6. Hypotension: Likely secondary to hypovolemia. Patient status post 500 mils normal saline IV bolus yesterday night by night team. Patient still hypotensive in a.m. with a systolic blood pressure in the 90s. Repeatnormal saline IV bolus. Continue to monitor vital signs. 04/23 hypotension resolved. Continue to monitor vital signs. 7. Metabolic acidosis Liekly due to diarrhea. and possibly hyperchloremic acidosis. Will start on hypotonic saline, monitor BMP. 04/26 BMP ordered and pending. 8. Hypernatremia Due to dehydration - Worsening - Will start on 02/28 ns. Monitor BMP. 7. DVT Prophylaxis: SCD/Teds. NO chemoprophylaxis given h/o anemia, GI bleed. 5. Social work for d/c planning as needed Discharge Planning Continue to monitor the medical floor. Discharge pending clinical improvement. Problem Qualifiers (1) Hypotension: Qualified Codes: I95.9 - Hypotension, unspecified Cassius García MD Apr 26, 2017 13:58
[2017-04-26 14:20] LABS: BICARBONATE 20.3 MEQ/L (21.0-32.0); CALCIUM 8.7 MG/DL (8.5-10.1); CREATININE 0.82 MG/DL (0.60-1.30); MAGNESIUM 1.3 MG/DL (1.5-2.5); PHOSPHORUS 1.8 MG/DL (2.5-4.9)
[2017-04-26] MEDS: FIDAXOMICIN 200 MG TAB PO SCH ×2 (15:06→20:48)
[2017-04-27] VITALS: BP 153/71; PULSE 59; RESP 18; TEMP 97.8; O2SAT 97
[2017-04-27] MEDS: POTASSIUM PHOSPHATE/SODIUM PHOSPHATE 250 MG TAB PO SCH ×4 (00:07→17:38)
[2017-04-27 04:00] VITALS: BP 115/73; PULSE 69; RESP 18; TEMP 96.4; O2SAT 98
[2017-04-27] MEDS: POTASSIUM CHLORIDE INJ 20 MEQ, SODIUM CHLORIDE 23.4% INJ 38.5 MEQ in WATER STERILE FOR ... IV SCH (04:48)
[2017-04-27] MEDS: SODIUM CHLORIDE 0.9% FLUSH 10 ML FLUSH IV FLUSH SCH ×2 (07:51→20:16)
[2017-04-27] MEDS: DOCUSATE SODIUM 50 MG/SENNA 8.6 MG TAB PO SCH ×2 (07:53→20:13)
[2017-04-27 08:00] VITALS: BP 123/70; PULSE 60; RESP 18; TEMP 98.1; O2SAT 96
[2017-04-27] MEDS: FIDAXOMICIN 200 MG TAB PO SCH ×2 (09:12→20:13)
[2017-04-27] MEDS: LACTOBACILLUS ACIDOPHILUS TAB PO SCH ×3 (09:13→17:38)
[2017-04-27] MEDS: PRAVASTATIN SOD 40 MG TAB PO SCH (09:13)
[2017-04-27] MEDS: ALLOPURINOL 300 MG TAB PO SCH (09:13)
[2017-04-27] MEDS: METOPROLOL TARTRATE 25 MG TAB PO SCH ×2 (09:13→20:13)
[2017-04-27] MEDS: LISINOPRIL 10 MG TAB PO SCH (09:13)
[2017-04-27 09:44] LABS: BICARBONATE 18.9 MEQ/L (21.0-32.0); CALCIUM 8.2 MG/DL (8.5-10.1); CREATININE 0.86 MG/DL (0.60-1.30)
[2017-04-27 12:00] VITALS: BP 151/72; PULSE 52; RESP 16; TEMP 97.2; O2SAT 98
--- NOTE | 2017-04-27 12:21 | HHI.PR ---
Subjective Remarks The patient states that he still having loose stools however frequency has decreased. Denies chest pain, nausea, states he vomited earlier today. Denies fevers or chills. Objective Vitals Vital Signs Date Time Temp Pulse Resp B/P (MAP) Pulse Ox O2 Delivery O2 Flow Rate FiO2 04/27/17 12:00 97.2 52 16 151/72 (98) 98 04/27/17 08:00 98.1 60 18 123/70 (87) 96 04/27/17 04:00 96.4 69 18 115/73 (87) 98 04/27/17 00:00 97.8 59 18 153/71 (98) 97 04/26/17 20:00 98.4 58 18 155/74 (101) 97 04/26/17 16:00 97.8 50 20 136/66 (89) 97 I/O 04/26/17 04/26/17 04/26/17 04/27/17 04/27/17 04/27/17 06:59 14:59 22:59 06:59 14:59 22:59 Intake Total 360 ml 100 ml 2419.625 ml 1619.625 ml Balance 360 ml 100 ml 2419.625 ml 1619.625 ml Intake Oral 360 ml 1400 ml 600 ml IV Total 100 ml 1019.625 ml 1019.625 ml # Voids 3 6 3 # Bowel Movements 1 12 1 Result Diagram: 04/26/17 1315 04/27/17 0812 Imaging Last Impressions Renal Ultrasound 04/21/17 0000 Signed Impressions: Service Date/Time: Friday, April 21, 2017 21:05 - CONCLUSION: 1. No acute findings. 3.4 cm cyst midpole left kidney. Dillan Armenta MD Objective Remarks GENERAL: Elderly white male in no acute distress. HEENT: PERRLA, EOMI. No scleral icterus or conjunctival pallor. No lid lag or facial droop. CARDIOVASCULAR: Regular rate and rhythm. No obvious murmurs to auscultation. No chest tenderness to palpation. RESPIRATORY: No obvious rhonchi or wheezing. Clear to auscultation. Breath sounds equal bilaterally. GASTROINTESTINAL: Abdomen soft, non-tender, nondistended. BS normal. MUSCULOSKELETAL: Extremities without clubbing, cyanosis, or edema. No obvious deformities. NEUROLOGICAL: Awake, alert and oriented x4. No focal neurologic deficits. Moving both upper and lower extremities spontaneously. Procedures None Medications and IVs Current Medications Medications (Trade) Dose Ordered Sig/Mony Route Start Time Stop Time Status Last Admin (NS Flush) 2 ml UNSCH PRN IV FLUSH 04/21/17 19:00 (NS Flush) 2 ml BID IV FLUSH 04/21/17 21:00 04/27/17 07:51 (Zofran Inj) 4 mg Q6H PRN IVP 04/21/17 19:00 (Tylenol) 650 mg Q6H PRN PO 04/21/17 19:00 ([place] 5-325 Mg) 1 tab Q4H PRN PO 04/21/17 19:00 (Morphine Inj) 2 mg Q3H PRN IV PUSH 04/21/17 19:00 (Reba-Colace) 1 tab BID PO 04/21/17 21:00 (Milk Of Magnesia Liq) 30 ml Q12H PRN PO 04/21/17 19:00 (Senokot) 17.2 mg Q12H PRN PO 04/21/17 19:00 (Dulcolax Supp) 10 mg DAILY PRN RECTAL 04/21/17 19:00 (Lactulose Liq) 30 ml DAILY PRN PO 04/21/17 19:00 (Lopressor) 25 mg BID PO 04/21/17 21:00 04/27/17 09:13 (Rheumatrex) 5 mg We PO 04/24/17 09:00 04/24/17 09:56 (Lactinex) 1 tab TID PO 04/24/17 13:00 04/27/17 11:19 (Zyloprim) 300 mg DAILY PO 04/24/17 11:15 04/27/17 09:13 (Pravachol) 40 mg DAILY PO 04/24/17 11:15 04/27/17 09:13 (Prinivil) 30 mg DAILY PO 04/24/17 11:15 04/27/17 09:13 (K-Phos Neutral) 250 mg Q6HR PO 04/25/17 12:00 04/27/17 11:19 Potassium Chloride 20 meq/ Sodium Chloride 38.5 meq/Sterile Water 1,019.625 ml @ 84 mls/hr Q12H9M IV 04/25/17 18:00 04/27/17 04:48 (Dificid) 200 mg BID PO 04/26/17 14:00 05/06/17 13:59 04/27/17 09:12 A/P Problem List: (1) Sepsis ICD Code: A41.9 - Sepsis, unspecified organism Status: Resolved (2) Colitis ICD Code: K52.9 - Noninfective gastroenteritis and colitis, unspecified Status: Acute (3) LYNDSEY (acute kidney injury) ICD Code: N17.9 - Acute kidney failure, unspecified Status: Resolved (4) Hypernatremia ICD Code: E87.0 - Hyperosmolality and hypernatremia Status: Acute (5) Hypotension ICD Code: I95.9 - Hypotension, unspecified Status: Resolved (6) Metabolic acidosis ICD Code: E87.2 - Acidosis (7) Dehydration ICD Code: E86.0 - Dehydration Assessment and Plan 1. Sepsis: HR 92, WBC 16, Source-likely colitis. Follow up cultures, continue IV Abx, IVF for hydration. 2. C. difficile diarrhea. reports ongoing diarrhea x2-3 months, eval for infectious etiology. CT Abd/Pelvis w/ no acute findings, images reviewed by me. Hemoccult negative on exam. Check Stool studies, C Diff. GI Consult if needed for further evaluation/possible Colonoscopy. 04/22 patient had C. difficile diarrhea. Patient is on oral Flagyl. Discontinue oral Flagyl and start on oral vancomycin and IV Flagyl. 04/23 ID consultation appreciated. Continue antibiotics as above. Potassium normal. 04/24 patient still having significant diarrhea. I will add Lactobacillus acidophilus. Continue oral vancomycin and IV Flagyl. 04/25 Patient still having frequent watery stools. continue PO Vancomycin and IV Flagyl. 04/26 discussed the case with Dr. Salazar from infectious disease. DC p.o. vancomycin and IV Flagyl and start the patient on Dificid. 04/27 seems to be improving. Continue Dificid and Lactobacillus acidophilus. 3. LYNDSEY: Creatinine 4.67, producing 1.10 on 10/08/16. Check UA, check Renal US , check protein/creat ratio, Consult Nephrology for further evaluation. Avoid NSAIDs/nephrotoxic agents. Monitor I/O. 04/22 creatinine trending down from 4.67-3.04. Continue IV fluids, renal ultrasound without hydronephrosis. Nephrology consulted recommendations pending. Continue to monitor BUN and creatinine, strict I's and O's. 04/24 suspect prerenal azotemia. Resolving after fluid administration. Resolved after IV fluid administration. 4. Leukocytosis: Likely secondary to sepsis secondary to C. difficile diarrhea. WBC trending down. Continue to monitor CBC with differential. leukocytosis resolved. Continue to monitor CBC with differential. 5. Hypokalemia: Likely secondary to GI loss and diarrhea. Replace orally and continue to monitor BMP. Potassium within normal range. 6. Hypotension: Likely secondary to hypovolemia. Patient status post 500 mils normal saline IV bolus yesterday night by night team. Patient still hypotensive in a.m. with a systolic blood pressure in the 90s. Repeatnormal saline IV bolus. Continue to monitor vital signs. 04/23 hypotension resolved. Continue to monitor vital signs. 7. Metabolic acidosis Liekly due to diarrhea. and possibly hyperchloremic acidosis. Will start on hypotonic saline, monitor BMP. 3/ patient still with metabolic acidosis. Will DC hypertonic saline since hypernatremia has resolved and will start the patient on sodium bicarbonate. 8. Hypernatremia Due to dehydration - Worsening - Will start on 1/4 ns. Monitor BMP. 3/3 sodium much improved now 138. I will DC one fourth NS and start the patient on normal saline with sodium bicarb IV. 7. DVT Prophylaxis: SCD/Teds. NO chemoprophylaxis given h/o anemia, GI bleed. 5. Social work for d/c planning as needed Discharge Planning Continue to monitor the medical floor. Discharge pending clinical improvement. Problem Qualifiers (1) Hypotension: Qualified Codes: I95.9 - Hypotension, unspecified Cassius García MD Apr 27, 2017 12:21
--- NOTE | 2017-04-27 12:57 | HHI.GIFU ---
Subjective Remarks Pt resting in bed. stool frequency decreasing, 3 today so far. (Cherrie Martínez) Objective Vitals I&O Vital Signs Date Time Temp Pulse Resp B/P (MAP) Pulse Ox O2 Delivery O2 Flow Rate FiO2 04/27/17 12:00 97.2 52 16 151/72 (98) 98 04/27/17 08:00 98.1 60 18 123/70 (87) 96 04/27/17 04:00 96.4 69 18 115/73 (87) 98 04/27/17 00:00 97.8 59 18 153/71 (98) 97 04/26/17 20:00 98.4 58 18 155/74 (101) 97 04/26/17 16:00 97.8 50 20 136/66 (89) 97 I/O 04/26/17 04/26/17 04/26/17 04/27/17 04/27/17 04/27/17 07:00 15:00 23:00 07:00 15:00 23:00 Intake Total 360 ml 100 ml 2419.625 ml 1619.625 ml Balance 360 ml 100 ml 2419.625 ml 1619.625 ml Intake Oral 360 ml 1400 ml 600 ml IV Total 100 ml 1019.625 ml 1019.625 ml # Voids 3 6 3 # Bowel Movements 1 12 1 Laboratory Laboratory Tests Test 04/26/17 13:15 04/27/17 08:12 White Blood Count 10.2 Red Blood Count 4.48 Hemoglobin 9.6 Hematocrit 30.1 Mean Corpuscular Volume 67.2 Mean Corpuscular Hemoglobin 21.4 Mean Corpuscular Hemoglobin Concent 31.9 Red Cell Distribution Width 18.8 Platelet Count 377 Mean Platelet Volume 8.2 Blood Urea Nitrogen 7 5 Creatinine 0.82 0.86 Random Glucose 93 78 Calcium Level 8.7 8.2 Phosphorus Level 1.8 Magnesium Level 1.3 Sodium Level 141 138 Potassium Level 3.7 4.6 Chloride Level 111 108 Carbon Dioxide Level 20.3 18.9 Anion Gap 10 11 Estimat Glomerular Filtration Rate 92 87 Date/Time Source Procedure Growth Status 04/24/17 13:00 Stool Stool Cryptosporidium Exam - Final NEGATIVE - NO CRYPTOSPORIDIUM ANTIGEN... Complete 04/24/17 13:00 Stool Stool Giardia Antigen ([facility]) - Final NEGATIVE - NO GIARDIA ANTIGEN DETECTE... Complete Imaging Last Impressions Renal Ultrasound 04/21/17 0000 Signed Impressions: Service Date/Time: Friday, April 21, 2017 21:05 - CONCLUSION: 1. No acute findings. 3.4 cm cyst midpole left kidney. Dillan Armenta MD Physical Exam HEENT: PERRL; normocephalic; atraumatic; no jaundice. CHEST: unlabored CARDIAC: RRR ABDOMEN: Soft, nondistended, nontender; EXTREMITIES: No clubbing, cyanosis, or edema. SKIN: Normal; no rash; no jaundice. PERFORATOR OPERATOR: No focal deficits; alert and oriented times three. (Cherrie Martínez) Assessment and Plan Plan ASSESSMENT - diarrhea - onset 3 months, pos c diff, ID on case - anemia, ?melena- hgb dropped from 11.2 to 6.9 in 2 days but on recheck is 9.9 this is not far from his baseline. he says he only has dark stool when he takes a certain pill. Denies areli bleeding. recent EGD and colonoscopy per pt and was told he needed capsule endoscopy 04/24/17 stool soft, more formed. Feeling better, wants to go home. denies black tarry stool or bleeding. HH relatively stable. WBC today is WNL 04/25/17 4 soft brown mucusy stools today per RN and pt. Denies black tarry stool or bleeding. HH relatively stable. started on lactinex 04/26/17 today pt claims 8 BM. wants to go home. 04/27/17 on dificd now, fequency BM decreasing PLAN - continue dificid per ID - continue to monitor stool count - capsule endoscopy as outpt - monitor HH - continue lactinex - supportive care pt seen by myself and Dr Cheney and this ntoe is on his behalf (Cherrie Martínez) Physician Comments Seen and examined with SUMMER SESSIONS DIRECTOR, doing better with less diarrhea on dificid and lactinex. ID in case. GI will sign off. Thank you (Nba Cheney MD) Cherrie Martínez Apr 27, 2017 12:57 Nba Cheney MD Apr 27, 2017 15:59
[2017-04-27] MEDS: SODIUM BICARBONATE 8.4% INJ 75 MEQ in SODIUM CHLOR 0.9% 1000 ML INJ 1,000 ML IV SCH (15:54)
[2017-04-27 16:00] VITALS: BP 135/77; PULSE 60; RESP 18; TEMP 97.5; O2SAT 97
[2017-04-27 20:00] VITALS: BP 133/70; PULSE 62; RESP 15; TEMP 98.4; O2SAT 97
[2017-04-28] VITALS (9 sets, daily range): BP systolic 113–152; BP diastolic 60–86; PULSE 55–82; RESP 15–18; TEMP 97.3–99.7; O2SAT 94–98
[2017-04-28] MEDS: POTASSIUM PHOSPHATE/SODIUM PHOSPHATE 250 MG TAB PO SCH ×5 (00:13→23:49)
[2017-04-28 07:02] LABS: AUTOMATED NEUTROPHIL # 6.1 TH/MM3 (1.8-7.7); BASOPHIL % 0.4 % (0.0-2.0); EOSINOPHIL # 0.3 TH/MM3 (0-0.4); EOSINOPHIL % 3.2 % (0.0-4.0); HEMATOCRIT 26.9 % (39.0-51.0); HEMOGLOBIN 8.6 GM/DL (13.0-17.0); LYMPH % 16.9 % (9.0-44.0); LYMPHOCYTE # 1.4 TH/MM3 (1.0-4.8); MEAN CELL VOLUME 66.6 FL (80.0-100.0); MEAN CORPUSCULAR HEMOGLOBIN 21.4 PG (27.0-34.0); MEAN CORPUSCULAR HGB CONC 32.2 % (32.0-36.0); MEAN PLATELET VOLUME 7.9 FL (7.0-11.0); MONO % 5.3 % (0.0-8.0); MONOCYTE # 0.4 TH/MM3 (0-0.9); NEUT % 74.2 % (16.0-70.0); PLATELET COUNT 351 TH/MM3 (150-450); RED BLOOD COUNT 4.04 MIL/MM3 (4.50-5.90); RED CELL DISTRIBUTION WIDTH 18.5 % (11.6-17.2); WHITE BLOOD COUNT 8.2 TH/MM3 (4.0-11.0)
[2017-04-28 08:05] LABS: ALBUMIN 2.3 GM/DL (3.4-5.0); ALKALINE PHOSPHATASE 36 U/L (45-117); ALT (GPT) 11 U/L (12-78); AST (GOT) 16 U/L (15-37); BLOOD UREA NITROGEN 5 MG/DL (7-18); CALCIUM 7.8 MG/DL (8.5-10.1); CHLORIDE 112 MEQ/L (98-107); CREATININE 0.77 MG/DL (0.60-1.30); GLOMERULAR FILTRATION RATE 99 ML/MIN (>89); GLUCOSE,RANDOM 86 MG/DL (74-106); MAGNESIUM 1.4 MG/DL (1.5-2.5); SODIUM (NA) 144 MEQ/L (136-145); TOTAL BILIRUBIN ADULT 0.3 MG/DL (0.2-1.0); TOTAL PROTEIN 4.7 GM/DL (6.4-8.2)
[2017-04-28] MEDS: DOCUSATE SODIUM 50 MG/SENNA 8.6 MG TAB PO SCH ×2 (09:00→20:37)
[2017-04-28] MEDS: LISINOPRIL 10 MG TAB PO SCH (09:26)
[2017-04-28] MEDS: FIDAXOMICIN 200 MG TAB PO SCH ×2 (09:26→20:37)
[2017-04-28] MEDS: LACTOBACILLUS ACIDOPHILUS TAB PO SCH ×3 (09:27→17:28)
[2017-04-28] MEDS: PRAVASTATIN SOD 40 MG TAB PO SCH (09:27)
[2017-04-28] MEDS: METOPROLOL TARTRATE 25 MG TAB PO SCH ×2 (09:27→20:37)
[2017-04-28] MEDS: ALLOPURINOL 300 MG TAB PO SCH (09:27)
[2017-04-28] MEDS: SODIUM CHLORIDE 0.9% FLUSH 10 ML FLUSH IV FLUSH SCH ×2 (09:27→20:38)
[2017-04-28] MEDS: MAGNESIUM SULFATE 1 GM PREMIX 100 ML IV SCH ×2 (12:47→17:27)
[2017-04-28] MEDS: SODIUM BICARBONATE 8.4% INJ 75 MEQ in SODIUM CHLOR 0.9% 1000 ML INJ 1,000 ML IV SCH (12:47)
--- NOTE | 2017-04-28 13:04 | HHI.PR ---
Subjective Remarks Bowel movements are decreasing in frequency. The patient states that he stool is more pasty. The patient denies chest pain, shortness of breath, nausea, vomiting, abdominal pain. A febrile. Stable vital signs. Objective Vitals Vital Signs Date Time Temp Pulse Resp B/P (MAP) Pulse Ox O2 Delivery O2 Flow Rate FiO2 04/28/17 12:00 97.8 56 17 142/76 (98) 98 04/28/17 08:00 97.6 70 16 121/71 (88) 95 04/28/17 05:18 56 04/28/17 04:00 97.3 61 15 113/60 (77) 94 04/28/17 00:43 55 04/28/17 00:00 98.8 58 15 121/77 (92) 97 04/27/17 20:00 62 04/27/17 20:00 98.4 62 15 133/70 (91) 97 04/27/17 16:00 97.5 60 18 135/77 (96) 97 I/O 04/27/17 04/27/17 04/27/17 04/28/17 04/28/17 04/28/17 07:00 15:00 23:00 07:00 15:00 23:00 Intake Total 1619.625 ml 1454 ml 240 ml Balance 1619.625 ml 1454 ml 240 ml Intake Oral 600 ml 480 ml 240 ml IV Total 1019.625 ml 974 ml # Voids 3 5 5 # Bowel Movements 1 3 5 Result Diagram: 04/28/17 0559 04/28/17 0559 Imaging Last Impressions Renal Ultrasound 04/21/17 0000 Signed Impressions: Service Date/Time: Friday, April 21, 2017 21:05 - CONCLUSION: 1. No acute findings. 3.4 cm cyst midpole left kidney. Dillan Armenta MD Objective Remarks GENERAL: Elderly white male in no acute distress. HEENT: PERRLA, EOMI. No scleral icterus or conjunctival pallor. No lid lag or facial droop. CARDIOVASCULAR: Regular rate and rhythm. No obvious murmurs to auscultation. No chest tenderness to palpation. RESPIRATORY: No obvious rhonchi or wheezing. Clear to auscultation. Breath sounds equal bilaterally. GASTROINTESTINAL: Abdomen soft, non-tender, nondistended. BS normal. MUSCULOSKELETAL: Extremities without clubbing, cyanosis, or edema. No obvious deformities. NEUROLOGICAL: Awake, alert and oriented x4. No focal neurologic deficits. Moving both upper and lower extremities spontaneously. Procedures None Medications and IVs Current Medications Medications (Trade) Dose Ordered Sig/Mony Route Start Time Stop Time Status Last Admin (NS Flush) 2 ml UNSCH PRN IV FLUSH 04/21/17 19:00 (NS Flush) 2 ml BID IV FLUSH 04/21/17 21:00 04/28/17 09:27 (Zofran Inj) 4 mg Q6H PRN IVP 04/21/17 19:00 (Tylenol) 650 mg Q6H PRN PO 04/21/17 19:00 ([place] 5-325 Mg) 1 tab Q4H PRN PO 04/21/17 19:00 (Morphine Inj) 2 mg Q3H PRN IV PUSH 04/21/17 19:00 (Reba-Colace) 1 tab BID PO 04/21/17 21:00 (Milk Of Magnesia Liq) 30 ml Q12H PRN PO 04/21/17 19:00 (Senokot) 17.2 mg Q12H PRN PO 04/21/17 19:00 (Dulcolax Supp) 10 mg DAILY PRN RECTAL 04/21/17 19:00 (Lactulose Liq) 30 ml DAILY PRN PO 04/21/17 19:00 (Lopressor) 25 mg BID PO 04/21/17 21:00 04/28/17 09:27 (Rheumatrex) 5 mg We PO 04/24/17 09:00 04/24/17 09:56 (Lactinex) 1 tab TID PO 04/24/17 13:00 04/28/17 12:48 (Zyloprim) 300 mg DAILY PO 04/24/17 11:15 04/28/17 09:27 (Pravachol) 40 mg DAILY PO 04/24/17 11:15 04/28/17 09:27 (Prinivil) 30 mg DAILY PO 04/24/17 11:15 04/28/17 09:26 (K-Phos Neutral) 250 mg Q6HR PO 04/25/17 12:00 04/28/17 12:47 (Dificid) 200 mg BID PO 04/26/17 14:00 05/06/17 13:59 04/28/17 09:26 Sodium Bicarbonate 75 meq/Sodium Chloride 1,075 ml @ 42 mls/hr Q24H IV 04/27/17 12:30 04/28/17 12:47 A/P Problem List: (1) Sepsis ICD Code: A41.9 - Sepsis, unspecified organism Status: Resolved (2) C. difficile diarrhea ICD Code: A04.72 - Enterocolitis due to Clostridium difficile, not specified as recurrent (3) LYNDSEY (acute kidney injury) ICD Code: N17.9 - Acute kidney failure, unspecified Status: Resolved (4) Hypernatremia ICD Code: E87.0 - Hyperosmolality and hypernatremia Status: Acute (5) Hypotension ICD Code: I95.9 - Hypotension, unspecified Status: Resolved (6) Metabolic acidosis ICD Code: E87.2 - Acidosis (7) Dehydration ICD Code: E86.0 - Dehydration Assessment and Plan 1. Sepsis: HR 92, WBC 16, Source-likely stated diarrhea. Follow up cultures, continue IV Abx, IVF for hydration. 2. C. difficile diarrhea. reports ongoing diarrhea x2-3 months, eval for infectious etiology. CT Abd/Pelvis w/ no acute findings, images reviewed by me. Hemoccult negative on exam. Check Stool studies, C Diff. GI Consult if needed for further evaluation/possible Colonoscopy. 04/22 patient had C. difficile diarrhea. Patient is on oral Flagyl. Discontinue oral Flagyl and start on oral vancomycin and IV Flagyl. 04/23 ID consultation appreciated. Continue antibiotics as above. Potassium normal. 04/24 patient still having significant diarrhea. I will add Lactobacillus acidophilus. Continue oral vancomycin and IV Flagyl. 04/25 Patient still having frequent watery stools. continue PO Vancomycin and IV Flagyl. 04/26 discussed the case with Dr. Salazar from infectious disease. DC p.o. vancomycin and IV Flagyl and start the patient on Dificid. 04/28 seems to be improving. Continue Dificid and Lactobacillus acidophilus. 3. LYNDSEY: Creatinine 4.67, producing 1.10 on 10/08/16. Check UA, check Renal US , check protein/creat ratio, Consult Nephrology for further evaluation. Avoid NSAIDs/nephrotoxic agents. Monitor I/O. 04/22 creatinine trending down from 4.67-3.04. Continue IV fluids, renal ultrasound without hydronephrosis. Nephrology consulted recommendations pending. Continue to monitor BUN and creatinine, strict I's and O's. 04/24 suspect prerenal azotemia. Resolving after fluid administration. Resolved after IV fluid administration. 4. Leukocytosis: Likely secondary to sepsis secondary to C. difficile diarrhea. WBC trending down. Continue to monitor CBC with differential. leukocytosis resolved. Continue to monitor CBC with differential. 5. Hypokalemia: Likely secondary to GI loss and diarrhea. Replace orally and continue to monitor BMP. Potassium within normal range. 6. Hypotension: Likely secondary to hypovolemia. Patient status post 500 mils normal saline IV bolus yesterday night by night team. Patient still hypotensive in a.m. with a systolic blood pressure in the 90s. Repeatnormal saline IV bolus. Continue to monitor vital signs. 04/23 hypotension resolved. Continue to monitor vital signs. 7. Metabolic acidosis Liekly due to diarrhea. and possibly hyperchloremic acidosis. Will start on hypotonic saline, monitor BMP. 3/3 patient still with metabolic acidosis. Will DC hypotonic saline since hypernatremia has resolved and will start the patient on sodium bicarbonate. 3/4 Metabolic acidosis resolved. Dc Sodium bicarbonate. 8. Hypernatremia Due to dehydration - Worsening - Will start on 1/4 ns. Monitor BMP. 3/3 sodium much improved now 138. I will DC one fourth NS and start the patient on normal saline with sodium bicarb IV. 3/4 resolved after one fourth normal saline administration. 7. DVT Prophylaxis: SCD/Teds. NO chemoprophylaxis given h/o anemia, GI bleed. 5. Social work for d/c planning as needed Discharge Planning Continue to monitor the medical floor. Dc pending ID clearance. Problem Qualifiers (1) Hypotension: Qualified Codes: I95.9 - Hypotension, unspecified Cassius García MD Apr 28, 2017 13:04
[2017-04-28] MEDS ORDERED: POTASSIUM CHLORIDE 10 MEQ CONTROLLED RELEASE TAB PO ONE (13:15)
--- NOTE | 2017-04-28 14:43 | HHI.GIFU ---
Subjective Remarks Resting in the bed States his stools are becoming more forming Feeling somewhat better hoping to go home soon. Afebrile (Nelly Doty) Objective Vitals I&O Vital Signs Date Time Temp Pulse Resp B/P (MAP) Pulse Ox O2 Delivery O2 Flow Rate FiO2 04/28/17 12:00 97.8 56 17 142/76 (98) 98 04/28/17 08:00 97.6 70 16 121/71 (88) 95 04/28/17 05:18 56 04/28/17 04:00 97.3 61 15 113/60 (77) 94 04/28/17 00:43 55 04/28/17 00:00 98.8 58 15 121/77 (92) 97 04/27/17 20:00 62 04/27/17 20:00 98.4 62 15 133/70 (91) 97 04/27/17 16:00 97.5 60 18 135/77 (96) 97 I/O 04/27/17 04/27/17 04/27/17 04/28/17 04/28/17 04/28/17 07:00 15:00 23:00 07:00 15:00 23:00 Intake Total 1619.625 ml 1454 ml 240 ml Balance 1619.625 ml 1454 ml 240 ml Intake Oral 600 ml 480 ml 240 ml IV Total 1019.625 ml 974 ml # Voids 3 5 5 # Bowel Movements 1 3 5 Laboratory Laboratory Tests Test 04/28/17 05:59 White Blood Count 8.2 Red Blood Count 4.04 Hemoglobin 8.6 Hematocrit 26.9 Mean Corpuscular Volume 66.6 Mean Corpuscular Hemoglobin 21.4 Mean Corpuscular Hemoglobin Concent 32.2 Red Cell Distribution Width 18.5 Platelet Count 351 Mean Platelet Volume 7.9 Neutrophils (%) (Auto) 74.2 Lymphocytes (%) (Auto) 16.9 Monocytes (%) (Auto) 5.3 Eosinophils (%) (Auto) 3.2 Basophils (%) (Auto) 0.4 Neutrophils # (Auto) 6.1 Lymphocytes # (Auto) 1.4 Monocytes # (Auto) 0.4 Eosinophils # (Auto) 0.3 Basophils # (Auto) 0.0 CBC Comment DIFF FINAL Differential Comment Blood Urea Nitrogen 5 Creatinine 0.77 Random Glucose 86 Total Protein 4.7 Albumin 2.3 Calcium Level 7.8 Phosphorus Level 2.0 Magnesium Level 1.4 Alkaline Phosphatase 36 Aspartate Amino Transf (AST/SGOT) 16 Alanine Aminotransferase (ALT/SGPT) 11 Total Bilirubin 0.3 Sodium Level 144 Potassium Level 3.2 Chloride Level 112 Carbon Dioxide Level 26.0 Anion Gap 6 Estimat Glomerular Filtration Rate 99 Date/Time Source Procedure Growth Status 04/24/17 13:00 Stool Stool Cryptosporidium Exam - Final NEGATIVE - NO CRYPTOSPORIDIUM ANTIGEN... Complete 04/24/17 13:00 Stool Stool Giardia Antigen ([facility]) - Final NEGATIVE - NO GIARDIA ANTIGEN DETECTE... Complete Physical Exam HEENT: PERRL; normocephalic; atraumatic; no jaundice., Pale CHEST: Lungs essentially clear without rhonchi CARDIAC: RRR ABDOMEN: Soft flat,, nondistended, nontender; active bowel sounds 4 quads EXTREMITIES: No clubbing, cyanosis, or edema. SKIN: no rash; no jaundice. Pale thin skin turgor CORNICE MAKER: No focal deficits; alert and oriented times three. (Nelly Doty) Assessment and Plan Plan ASSESSMENT - diarrhea - onset 3 months, pos c diff, ID on case - anemia, ?melena- hgb dropped from 11.2 to 6.9 in 2 days but on recheck is 9.9 this is not far from his baseline. he says he only has dark stool when he takes a certain pill. Denies areli bleeding. recent EGD and colonoscopy per pt and was told he needed capsule endoscopy 04/24/17 stool soft, more formed. Feeling better, wants to go home. denies black tarry stool or bleeding. HH relatively stable. WBC today is WNL 04/25/17 4 soft brown mucusy stools today per RN and pt. Denies black tarry stool or bleeding. HH relatively stable. started on lactinex 04/26/17 today pt claims 8 BM. wants to go home. 04/27/17 on dificd now, fequency BM decreasing 04/28/17, patient states stools are becoming more formed. Feeling better, appetite improving. Hemoglobin currently 8.6 without any obvious bleeding PLAN - continue dificid per ID, probiotics - Zofran as needed for nausea - Intake and output, monitor loose stools - capsule endoscopy as outpt - monitor HH, and labs - continue lactinex - supportive care - Needs to follow up with GI as an outpatient for capsule endoscopy. Patient will need to continue treatment for C. difficile. pt seen by myself and Dr Cheney and this note is on his behalf (Nelly Dtoy) Physician Comments Doing better. Gi will sign off. Fu as outpt. please. (Nba Cheney MD) Nelly Doty Apr 28, 2017 14:43 Nba Cheney MD Apr 28, 2017 16:33
[2017-04-29] VITALS: BP 108/66; PULSE 57; RESP 18; TEMP 97.9; O2SAT 92
[2017-04-29 04:00] VITALS: BP 153/78; PULSE 62; RESP 18; TEMP 97.6; O2SAT 97
[2017-04-29 04:02] VITALS: PULSE 53
[2017-04-29] MEDS: POTASSIUM PHOSPHATE/SODIUM PHOSPHATE 250 MG TAB PO SCH ×2 (06:05→11:41)
[2017-04-29 08:00] VITALS: BP 151/81; PULSE 67; RESP 18; TEMP 97; O2SAT 98
[2017-04-29] MEDS: DOCUSATE SODIUM 50 MG/SENNA 8.6 MG TAB PO SCH (09:00)
[2017-04-29] MEDS: SODIUM CHLORIDE 0.9% FLUSH 10 ML FLUSH IV FLUSH SCH (09:00)
[2017-04-29 09:06] LABS: HEMATOCRIT 26.4 % (39.0-51.0); HEMOGLOBIN 8.6 GM/DL (13.0-17.0); MEAN CELL VOLUME 66.8 FL (80.0-100.0); MEAN CORPUSCULAR HEMOGLOBIN 21.8 PG (27.0-34.0); MEAN CORPUSCULAR HGB CONC 32.6 % (32.0-36.0); PLATELET COUNT 363 TH/MM3 (150-450); RED BLOOD COUNT 3.96 MIL/MM3 (4.50-5.90); RED CELL DISTRIBUTION WIDTH 18.7 % (11.6-17.2)
--- NOTE | 2017-04-29 09:19 | HHI.PR ---
Subjective Remarks wants to go home denies any nausea vomiting or abdominal pain per patinet- stools formed- once overnight Objective Vitals Vital Signs Date Time Temp Pulse Resp B/P (MAP) Pulse Ox O2 Delivery O2 Flow Rate FiO2 04/29/17 08:00 97.0 67 18 151/81 (104) 98 04/29/17 04:02 53 04/29/17 04:00 97.6 62 18 153/78 (103) 97 04/29/17 00:00 97.9 57 18 108/66 (80) 92 04/28/17 23:59 61 04/28/17 20:00 99.7 82 18 152/82 (105) 95 04/28/17 20:00 68 04/28/17 16:00 98.3 58 18 149/86 (107) 97 04/28/17 12:00 97.8 56 17 142/76 (98) 98 I/O 04/28/17 04/28/17 04/28/17 04/29/17 04/29/17 04/29/17 07:00 15:00 23:00 07:00 15:00 23:00 Intake Total 240 ml 1187 ml 878 ml Balance 240 ml 1187 ml 878 ml Intake Oral 240 ml 720 ml 480 ml IV Total 467 ml 398 ml # Voids 5 3 3 # Bowel Movements 5 2 5 Result Diagram: 04/29/17 0810 04/28/17 0559 Imaging Last Impressions Renal Ultrasound 04/21/17 0000 Signed Impressions: Service Date/Time: Friday, April 21, 2017 21:05 - CONCLUSION: 1. No acute findings. 3.4 cm cyst midpole left kidney. Dillan Armenta MD Objective Remarks awake and alert, no acute distress anicteric lungs- clear regular rhythm abdomen soft, good bowel sounds extremities no edema neuro exam- non focal Procedures None A/P Problem List: (1) Sepsis ICD Code: A41.9 - Sepsis, unspecified organism Status: Resolved (2) C. difficile diarrhea ICD Code: A04.72 - Enterocolitis due to Clostridium difficile, not specified as recurrent (3) LYNDSEY (acute kidney injury) ICD Code: N17.9 - Acute kidney failure, unspecified Status: Resolved (4) Hypernatremia ICD Code: E87.0 - Hyperosmolality and hypernatremia Status: Acute (5) Hypotension ICD Code: I95.9 - Hypotension, unspecified Status: Resolved (6) Metabolic acidosis ICD Code: E87.2 - Acidosis (7) Dehydration ICD Code: E86.0 - Dehydration Assessment and Plan 72 yers old male 1. Sepsis: HR 92, WBC 16, Source-likely stated diarrhea. 2. C. difficile colitis- improved on dificid-continue till 05/06- per ID recommendation CT Abd/Pelvis w/ no acute findings Continue Dificid x 6 more days 3. LYNDSEY: due to c diff colitis-resolved encourage patient to keep well hydrated 4. Leukocytosis: Resolved. Likely secondary to sepsis secondary to C. difficile diarrhea. - 5. Hypokalemia: Likely secondary to GI loss and diarrhea. Replace orally and continue to monitor BMP. Potassium within normal range. 6. Hypotension- Resolved- resolved : Likely secondary to hypovolemia. 7. Metabolic acidosis- resolved 8. Multiple electrolyte abnormalities due to colitis 9. History of RA- OP ff up Hypernatremia- resolved Hypokalemia- - recheck today- Hypomagenesemia- replaced Hypophosphatemia- replaced - CMP pending 7. DVT Prophylaxis: SCD/Teds. NO chemoprophylaxis given h/o anemia, GI bleed. - patient up and ambulatin DC home today after BMP back OP ff up with PCP- Dr. Castellon with repeat elecrolytes OP ff up with GI- for planned capsule endoscopy- d/w patient ADD: K back 2.8 patient wants to go home wont stay for IV Potassium will give x 1 po KCL then bid x 2 days repeat BM<P in 2-3 days c/o PCP advise banana daily expressed full understanding d/w staff nurse with patient in detail Problem Qualifiers (1) Hypotension: Qualified Codes: I95.9 - Hypotension, unspecified Sabina Hassan MD Apr 29, 2017 09:19
[2017-04-29] MEDS ORDERED: DIFI200T PO ×2 (09:27→14:02)
[2017-04-29] MEDS: ALLOPURINOL 300 MG TAB PO SCH (09:49)
[2017-04-29] MEDS: LACTOBACILLUS ACIDOPHILUS TAB PO SCH ×2 (09:49→11:42)
[2017-04-29] MEDS: LISINOPRIL 10 MG TAB PO SCH (09:49)
[2017-04-29] MEDS: PRAVASTATIN SOD 40 MG TAB PO SCH (09:49)
[2017-04-29] MEDS: FIDAXOMICIN 200 MG TAB PO SCH (09:49)
[2017-04-29] MEDS: METOPROLOL TARTRATE 25 MG TAB PO SCH (09:49)
[2017-04-29 09:54] LABS: BICARBONATE 27.1 MEQ/L (21.0-32.0); CALCIUM 7.8 MG/DL (8.5-10.1); CREATININE 0.71 MG/DL (0.60-1.30); MAGNESIUM 1.5 MG/DL (1.5-2.5); PHOSPHORUS 2.5 MG/DL (2.5-4.9)
[2017-04-29] MEDS ORDERED: POTA-163 PO (10:55)
[2017-04-29 12:00] VITALS: BP 144/77; PULSE 76; RESP 18; TEMP 97.5; O2SAT 98
[2017-04-29] MEDS ORDERED: POTASSIUM CHLORIDE 25 MEQ EFFERVESCENT TAB PO ONE (12:00)
--- NOTE | 2017-04-29 14:08 | HHI.DS ---
Discharge Summary Admission Date Apr 21, 2017 at 19:01 Discharge Date: Apr 29, 2017 Admitting Diagnosis acute kidney injury, r/o infectious diarrhea (1) Sepsis ICD Code: A41.9 - Sepsis, unspecified organism Diagnosis: Principal Status: Resolved (2) C. difficile diarrhea ICD Code: A04.72 - Enterocolitis due to Clostridium difficile, not specified as recurrent Diagnosis: Principal (3) LYNDSEY (acute kidney injury) ICD Code: N17.9 - Acute kidney failure, unspecified Diagnosis: Principal Status: Resolved (4) Hypernatremia ICD Code: E87.0 - Hyperosmolality and hypernatremia Diagnosis: Secondary Status: Acute (5) Hypotension ICD Code: I95.9 - Hypotension, unspecified Diagnosis: Secondary Status: Resolved (6) Metabolic acidosis ICD Code: E87.2 - Acidosis Diagnosis: Secondary (7) Dehydration ICD Code: E86.0 - Dehydration Diagnosis: Principal Procedures None Brief History - From Admission This is a 72-year-old male with a PMH of HTN, Hyperlipidemia, Gout and Rheumatoid Arthritis recent ER with complaints of diarrhea for few months. States symptoms have been constant, almost daily, now progressively worse. States unable to eat because he has diarrhea immediately after a meal. Denies abdominal pain, nausea, vomiting, fever or chills. No recent travel, no antibiotic use. On arrival, BP 85/49, HR 92, O2 sat 99% on RA, Afebrile. S/p IVF w/ repeat BP 113/56, HR 64. WBC 16.5. Hemoglobin 11.2. Creatinine 4.67, producing 1.10 and 10/08/17. Lactic Acid 1.2. INR 1.0. Alcohol negative. CT Abdomen/Pelvis with no acute findings in the abdomen or pelvis, nonacute sigmoid diverticulosis. S/p Flagyl in ER. Stool studies pending. Hemoccult negative. CBC/BMP: 04/29/17 0810 04/29/17 0810 Significant Findings Laboratory Tests Test 04/27/17 08:12 04/28/17 05:59 04/29/17 08:10 Blood Urea Nitrogen 5 MG/DL (7-18) 5 MG/DL (7-18) 6 MG/DL (7-18) Calcium Level 8.2 MG/DL (8.5-10.1) 7.8 MG/DL (8.5-10.1) 7.8 MG/DL (8.5-10.1) Chloride Level 108 MEQ/L (98-107) 112 MEQ/L (98-107) 109 MEQ/L (98-107) Carbon Dioxide Level 18.9 MEQ/L (21.0-32.0) Estimat Glomerular Filtration Rate 87 ML/MIN (>89) Red Blood Count 4.04 MIL/MM3 (4.50-5.90) 3.96 MIL/MM3 (4.50-5.90) Hemoglobin 8.6 GM/DL (13.0-17.0) 8.6 GM/DL (13.0-17.0) Hematocrit 26.9 % (39.0-51.0) 26.4 % (39.0-51.0) Mean Corpuscular Volume 66.6 FL (80.0-100.0) 66.8 FL (80.0-100.0) Mean Corpuscular Hemoglobin 21.4 PG (27.0-34.0) 21.8 PG (27.0-34.0) Red Cell Distribution Width 18.5 % (11.6-17.2) 18.7 % (11.6-17.2) Neutrophils (%) (Auto) 74.2 % (16.0-70.0) Total Protein 4.7 GM/DL (6.4-8.2) Albumin 2.3 GM/DL (3.4-5.0) Phosphorus Level 2.0 MG/DL (2.5-4.9) Magnesium Level 1.4 MG/DL (1.5-2.5) Alkaline Phosphatase 36 U/L (45-117) Alanine Aminotransferase (ALT/SGPT) 11 U/L (12-78) Potassium Level 3.2 MEQ/L (3.5-5.1) 2.8 MEQ/L (3.5-5.1) Imaging Last Impressions Renal Ultrasound 04/21/17 0000 Signed Impressions: Service Date/Time: Friday, April 21, 2017 21:05 - CONCLUSION: 1. No acute findings. 3.4 cm cyst midpole left kidney. Dillan Armenta MD PE at Discharge awake and alert, no acute distress anicteric lungs- clear regular rhythm abdomen soft, good bowel sounds extremities no edema neuro exam- non focal Pt update on day of discharge afebrile stools soft formed, once so far since yesterday non bloody no complains of muscle weakness sinus on telemetry Hospital Course 72 yers old male 1. Sepsis: HR 92, WBC 16, Source-likely stated diarrhea. 2. C. difficile colitis- improved on dificid-continue till 05/06- per ID recommendation CT Abd/Pelvis w/ no acute findings Continue Dificid x 6 more days 3. LYNDSEY: due to c diff colitis-resolved encourage patient to keep well hydrated 4. Leukocytosis: Resolved. Likely secondary to sepsis secondary to C. difficile diarrhea. - 5. Hypokalemia: Likely secondary to GI loss and diarrhea. Replace orally and continue to monitor BMP. Potassium within normal range. 6. Hypotension- Resolved- resolved : Likely secondary to hypovolemia. 7. Metabolic acidosis- resolved 8. Multiple electrolyte abnormalities due to colitis 9. History of RA- OP ff up Hypernatremia- resolved Hypokalemia- - recheck today- Hypomagenesemia- replaced Hypophosphatemia- replaced - CMP pending 7. DVT Prophylaxis: SCD/Teds. NO chemoprophylaxis given h/o anemia, GI bleed. - patient up and ambulatin DC home today after BMP back OP ff up with PCP- Dr. Castellon with repeat elecrolytes OP ff up with GI- for planned capsule endoscopy- d/w patient ADD: K back 2.8 patient wants to go home wont stay for IV Potassium will give x 1 po KCL then bid x 2 days repeat BM<P in 2-3 days c/o PCP advise banana daily expressed full understanding d/w staff nurse with patient in detail Pt Condition on Discharge: Stable Discharge Disposition: Discharge Home Discharge Time: > 30 minutes Discharge Instructions DIET: Follow Instructions for: Heart Healthy Diet Speech Therapy-Diet Recommends: Regular Activities you can perform: Weight Bearing as Leobardo Activities to Avoid: Strenuous Activity Follow up Referrals: Gastroenterology - 2-3 Days with Ludivina Isabel MD PCP Follow-up - 2-3 Days with Erin New Orders: COMP MET PROF (CMP) - 05/02/17 New Medications: Potassium Chloride ER (Potassium Chloride ER) 20 Meq Tab 20 MEQ PO BID for Electrolyte Replacement, #10 TAB 0 Refills Fidaxomicin (Dificid) 200 Mg Tab 200 MG PO BID for cdiff for 6 Days, #12 TAB Continued Medications: Allopurinol (Allopurinol) 300 Mg Tab 300 MG PO DAILY for Gout, #30 TAB 0 Refills Ferrous Sulfate (Ferrous Sulfate) 325 Mg (65 Mg Iron) Tablet 325 MG PO DAILY for Nutritional Supplement, #30 TAB 0 Refills Lisinopril (Lisinopril) 30 Mg Tab 30 MG PO DAILY for Blood Pressure Management, #30 TAB 0 Refills Methotrexate (Methotrexate) 2.5 Mg Tab 7.5 MG PO Q7D, TAB 0 Refills Metoprolol Tartrate (Metoprolol Tartrate) 25 Mg Tab 25 MG PO BID, #60 TAB 0 Refills Pravastatin (Pravastatin) 40 Mg Tab 40 MG PO DAILY for Cholesterol Management, #30 TAB 0 Refills Prednisone (Prednisone) 5 Mg Tab 5 MG PO DAILY, TAB 0 Refills Sabina Hassan MD Apr 29, 2017 14:08
--- NOTE | 2017-04-29 14:56 | HHI.IDPN ---
Note Infectious Disease Note Patient reports that he had 2 formed stools yesterday. Notes that he had one formed bowel movement today. Denies abdominal pain. Afebrile. Patient is currently very irate. Wants to be discharged. [facility] at [facility]. 72-year-old white male who presented to the emergency department with watery diarrhea. The patient reports he has been having diarrhea for a few weeks now. He said that every time he eats, he would have to run to the bathroom. PAST MEDICAL HISTORY: Rheumatoid arthritis, hypercholesterolemia, gout, hypertension, tonsillectomy, cyst on the kidney. ALLERGIES: NO KNOWN DRUG ALLERGIES. MEDICATIONS: SOCIAL HISTORY: The patient works as a security and compliance analyst. Reports of alcohol use. No tobacco. No illicit drugs. OBJECTIVE:: Vital Signs Date Time Temp Pulse Resp B/P (MAP) Pulse Ox O2 Delivery O2 Flow Rate FiO2 04/29/17 12:00 97.5 76 18 144/77 (99) 98 04/29/17 08:00 97.0 67 18 151/81 (104) 98 04/29/17 04:02 53 04/29/17 04:00 97.6 62 18 153/78 (103) 97 04/29/17 00:00 97.9 57 18 108/66 (80) 92 04/28/17 23:59 61 04/28/17 20:00 99.7 82 18 152/82 (105) 95 04/28/17 20:00 68 04/28/17 16:00 98.3 58 18 149/86 (107) 97 Laboratory Tests Test 04/28/17 05:59 04/29/17 08:10 White Blood Count 8.2 TH/MM3 8.0 TH/MM3 Red Blood Count 4.04 MIL/MM3 3.96 MIL/MM3 Hemoglobin 8.6 GM/DL 8.6 GM/DL Hematocrit 26.9 % 26.4 % Mean Corpuscular Volume 66.6 FL 66.8 FL Mean Corpuscular Hemoglobin 21.4 PG 21.8 PG Mean Corpuscular Hemoglobin Concent 32.2 % 32.6 % Red Cell Distribution Width 18.5 % 18.7 % Platelet Count 351 TH/MM3 363 TH/MM3 Mean Platelet Volume 7.9 FL 8.0 FL Neutrophils (%) (Auto) 74.2 % Lymphocytes (%) (Auto) 16.9 % Monocytes (%) (Auto) 5.3 % Eosinophils (%) (Auto) 3.2 % Basophils (%) (Auto) 0.4 % Neutrophils # (Auto) 6.1 TH/MM3 Lymphocytes # (Auto) 1.4 TH/MM3 Monocytes # (Auto) 0.4 TH/MM3 Eosinophils # (Auto) 0.3 TH/MM3 Basophils # (Auto) 0.0 TH/MM3 CBC Comment DIFF FINAL Differential Comment Laboratory Tests Test 04/28/17 05:59 04/29/17 08:10 Blood Urea Nitrogen 5 MG/DL 6 MG/DL Creatinine 0.77 MG/DL 0.71 MG/DL Random Glucose 86 MG/DL 78 MG/DL Total Protein 4.7 GM/DL Albumin 2.3 GM/DL Calcium Level 7.8 MG/DL 7.8 MG/DL Phosphorus Level 2.0 MG/DL 2.5 MG/DL Magnesium Level 1.4 MG/DL 1.5 MG/DL Alkaline Phosphatase 36 U/L Aspartate Amino Transf (AST/SGOT) 16 U/L Alanine Aminotransferase (ALT/SGPT) 11 U/L Total Bilirubin 0.3 MG/DL Sodium Level 144 MEQ/L 145 MEQ/L Potassium Level 3.2 MEQ/L 2.8 MEQ/L Chloride Level 112 MEQ/L 109 MEQ/L Carbon Dioxide Level 26.0 MEQ/L 27.1 MEQ/L Anion Gap 6 MEQ/L 9 MEQ/L Estimat Glomerular Filtration Rate 99 ML/MIN 108 ML/MIN Microbiology Date/Time Source Procedure Growth Status 04/24/17 13:00 Stool Stool Cryptosporidium Exam - Final NEGATIVE - NO CRYPTOSPORIDIUM ANTIGEN... Complete 04/24/17 13:00 Stool Stool Giardia Antigen ([facility]) - Final NEGATIVE - NO GIARDIA ANTIGEN DETECTE... Complete Renal Ultrasound 04/21/17 0000 Signed Impressions: Service Date/Time: Friday, April 21, 2017 21:05 - CONCLUSION: 1. No acute findings. 3.4 cm cyst midpole left kidney. Dillan Armenta MD PHYSICAL EXAMINATION: GENERAL: Awake and alert. No acute distress. HEENT: Extraocular movements grossly intact, pupils reactive to light. No icterus. OROPHARYNX: Moist mucosa without lesions. NECK: Supple without adenopathy. LUNGS: Breath sounds clear. HEART: Distant S1 and S2 without murmurs, rubs, or gallops. ABDOMEN: Nondistended, soft, nontender. EXTREMITIES: No clubbing, cyanosis, or edema. SKIN: No rash. NEUROLOGIC: No gross focal findings. PSYCHIATRIC: Emotionally labile. Angry. IMPRESSION: 1. C. difficile colitis. Stools improved. Now solid. He has hypervirulent strain. 2. Acute kidney disease. Improved. 3. Leukocytosis secondary to C. difficile. WBC down to normal. RECOMMENDATIONS: Continue Dificid for 6 more days. Okay for patient to be discharged from my standpoint. Loc Bedolla MD Apr 29, 2017 14:56
[2017-04-29 16:23] LABS: BICARBONATE 26.6 MEQ/L (21.0-32.0); CALCIUM 7.9 MG/DL (8.5-10.1); CREATININE 0.93 MG/DL (0.60-1.30)
== END 2017-04-29 15:00 | disposition home or self-care (01) | DRG 872 ==
LOC: NEPC 15:34 → NEDA 19:01 → N07B 19:54
PROVIDERS: ADMIT Internal Medicine; ATTEND Internal Medicine
DX: A41.4 Sepsis due to anaerobes (principal); N17.9 Acute kidney failure, unspecified; A04.72 Enterocolitis due to Clostridium difficile, not specified as recurrent; I95.9 Hypotension, unspecified; E87.0 Hyperosmolality and hypernatremia; E87.2 Acidosis; M06.9 Rheumatoid arthritis, unspecified; D64.9 Anemia, unspecified; E83.42 Hypomagnesemia; E83.39 Other disorders of phosphorus metabolism; N28.1 Cyst of kidney, acquired; E86.0 Dehydration; I10 Essential (primary) hypertension; E78.5 Hyperlipidemia, unspecified; M10.9 Gout, unspecified; R63.4 Abnormal weight loss; R00.2 Palpitations; E78.00 Pure hypercholesterolemia, unspecified; E87.6 Hypokalemia; E86.1 Hypovolemia; M19.90 Unspecified osteoarthritis, unspecified site; Z68.26 Body mass index [BMI] 26.0-26.9, adult; Z87.891 Personal history of nicotine dependence
CPT/HCPCS: 76775; 80048; 80053; 80307; 81001; 82272; 82570; 83605; 83735; 84100; 84156; 85025; 85027; 85610; 85730; 86850; 86900; 86901; 86920; 87328; 87329; 87493; 87506; 96361; 96365; 96375; C9113; J0744; J2405; J3475; J3480; J7030; J7040; J8610